=== PATIENT | male | born 1975 | race Hispanic/Latino ===

== ENCOUNTER 2017-01-07 09:25 | Day surgery (SDC) | payer OTHER ==
[2017-01-07] MEDS ORDERED: Lactated Ringer's 500 ML IV ONE (10:52)
[2017-01-07] MEDS ORDERED: Propofol 10 mg/ml Inj (20 ML) ONE (12:10)
[2017-01-07 13:01] VITALS: TEMP 98.8; O2SAT 100
[2017-01-07 13:04] VITALS: BP 124/69; PULSE 69; RESP 16
== END 2017-01-07 13:08 | disposition home or self-care (01) ==
LOC: H.ENDO 09:25
PROVIDERS: ATTEND Internal Medicine Gastroenterology
DX: K74.60 Unspecified cirrhosis of liver (principal); J45.909 Unspecified asthma, uncomplicated; K31.9 Disease of stomach and duodenum, unspecified; K31.89 Other diseases of stomach and duodenum; K76.6 Portal hypertension

== ENCOUNTER 2017-07-24 05:53 | Inpatient (IN) | payer OTHER ==
[2017-07-24] MEDS ORDERED: Iohexol 240 (50 ml) PO ONE (06:33)
[2017-07-24] MEDS ORDERED: Iohexol 240 (50 ml) ONE (06:54)
[2017-07-24 07:04] LABS: BASO # 0.1 K/uL (0.0-0.2); BASO % 0.8 % (0.0-2.0); EOS # 0.1 K/uL (0.0-0.7); EOS % 1.1 % (0.0-4.0); HEMATOCRIT 39.4 % (35.0-51.0); LYMPH # 1.2 K/uL (1.0-4.3); LYMPH % 15.9 % (20.0-40.0); MEAN CELL VOLUME 92.1 fl (80.0-94.0); MEAN CORPUSCULAR HEMOGLOBIN 30.4 pg (27.0-31.0); MEAN PLATELET VOLUME 9.1 fl (7.2-11.7); MONO # 1.4 K/uL (0.0-0.8); MONO % 18.8 % (0.0-10.0); NEUT # 4.8 K/uL (1.8-7.0); NEUT % 63.4 % (50.0-75.0); RED CELL DISTRIBUTION WIDTH 20.2 % (11.5-14.5); WHITE BLOOD COUNT 7.7 K/uL (4.8-10.8)
--- NOTE | 2017-07-24 07:08 | ED PDOC ---
HPI: Abdomen Time Seen by Provider: 07/24/17 06:21 Chief Complaint (Nursing): Abdominal Pain Chief Complaint (Provider): Abdominal pain History Per: Patient History/Exam Limitations: no limitations Onset/Duration Of Symptoms: Days (2 days) Current Symptoms Are (Timing): Still Present Additional Complaint(s): Patient is a 42 y/o male with a past medical history of anemia and cirrhosis, who presents to the ED complaining of abdominal pain x2 days. Patient reports that he has been drinking for the past month and noticed abdominal and leg swelling. He denies any nausea, vomiting, diarrhea, fever, chills, chest pain, shortness of breath, or other symptoms. PCP: Provider JUMA, Past Medical History Reviewed: Historical Data, Nursing Documentation, Vital Signs Vital Signs: Last Vital Signs Temp 98.8 F 07/26/17 00:17 Pulse 101 H 07/26/17 00:17 Resp 18 07/26/17 00:17 BP 103/61 07/26/17 00:17 Pulse Ox 96 07/26/17 00:17 - Medical History PMH: Anemia, Asthma Denies: Chronic Kidney Disease - Surgical History Surgical History: No Surg Hx - Family History Family History: States: No Known Family Hx - Home Medications Home Medications: Ambulatory Orders Medication Instructions Recorded Furosemide [Lasix] 40 mg PO DAILY 07/24/17 - Allergies Allergies/Adverse Reactions: Allergies Allergy/AdvReac Type Severity Reaction Status Date / Time No Known Allergies Allergy Verified 01/07/17 10:49 Review of Systems ROS Statement: Except As Marked, All Systems Reviewed And Found Negative Constitutional: Negative for: Fever, Chills Cardiovascular: Negative for: Chest Pain Respiratory: Negative for: Shortness of Breath Gastrointestinal: Positive for: Abdominal Pain, Other (abdominal swelling). Negative for: Nausea, Vomiting, Diarrhea Musculoskeletal: Positive for: Other (leg swelling) Physical Exam - Reviewed Nursing Documentation Reviewed: Yes Vital Signs Reviewed: Yes - Physical Exam Appears: Positive for: No Acute Distress Head Exam: Positive for: ATRAUMATIC, NORMOCEPHALIC Skin: Positive for: Normal Color, Warm, Dry Eye Exam: Positive for: Normal appearance, EOMI, PERRL Neck: Positive for: Normal, Painless ROM, Supple Cardiovascular/Chest: Positive for: Regular Rate, Rhythm. Negative for: Murmur Respiratory: Positive for: Normal Breath Sounds. Negative for: Respiratory Distress Gastrointestinal/Abdominal: Positive for: Tenderness (focal point tenderness in right mid abdomen with "divot" in abdominal wall that measures about 3cm in diameter), Distended Back: Positive for: Normal Inspection. Negative for: L CVA Tenderness, R CVA Tenderness, Vertebral Tenderness Extremity: Positive for: Pedal Edema (2+ pitting edema in legs) Neurologic/Psych: Positive for: Alert, Oriented (x3). Negative for: Motor/ Sensory Deficits - Laboratory Results Result Diagrams: 07/25/17 08:30 07/25/17 08:30 - ECG O2 Sat by Pulse Oximetry: 100 (RA) Pulse Ox Interpretation: Normal Medical Decision Making Medical Decision Making: Time: 06:33 Initial Impression: cirrhosis Initial Plan: --Type an dscreen --CT Abdomen/Pelvis PO and IV contrast --Ammonia --Bilirubin, Direct --Labs --Drug Screen, Urine --PT/PTT --Chest XR --Iohexol 50ml PO --Ketorolac 15mg IVP --Urinalysis --Reevaluation Time: 07:00 -Patient signed out by me to Jairon Pierre Scribe Attestation: Documented by Yanci Luong, acting as a scribe for Blane Garcia MD Provider Scribe Attestation: All medical record entries made by the Scribe were at my direction and personally dictated by me. I have reviewed the chart and agree that the record accurately reflects my personal performance of the history, physical exam, medical decision making, and the department course for this patient. I have also personally directed, reviewed, and agree with the discharge instructions and disposition. Disposition - Clinical Impression Clinical Impression: Cholecystitis, Hypokalemia, Increased ammonia level - Patient ED Disposition Is Patient to be Admitted: Transfer of Care - Disposition Disposition: Transfer of Care Disposition Time: 07:00 Condition: FAIR Patient Signed Over To: Jairon Pierre
[2017-07-24 07:17] LABS: ALKALINE PHOSPHATASE 530 U/L (38-126); ALT/SGPT 85 U/L (21-72); AST/SGOT 266 U/L (17-59); BILIRUBIN,TOTAL 5.2 mg/dl (0.2-1.3); BLOOD UREA NITROGEN 4 mg/dl (9-20); CALCIUM 7.4 mg/dL (8.4-10.2); CARBON DIOXIDE 25 mmol/L (22-30); CHLORIDE 103 mmol/L (98-107); GFR AFRICAN-AMERICAN > 60; GLUCOSE,RANDOM 137 mg/dL (75-110); LIPASE 235 U/L (23-300); POTASSIUM 3.4 MMOL/L (3.6-5.0); SODIUM 137 mmol/l (132-148)
[2017-07-24 07:19] LABS: ALB/GLOB RATIO 0.5 (1.0-2.1)
--- NOTE | 2017-07-24 07:22 | ED PDOC ---
- Laboratory Results Result Diagrams: 07/24/17 06:46 07/24/17 06:46 Interpretation Of Abn Labs: 5.2 bili, direct 4.1, ast 266/alt 85; 67 ammonia - ECG ECG: Positive for: Interpreted By Me, Viewed By Me ECG Rhythm: Positive for: Sinus Rhythm O2 Sat by Pulse Oximetry: 100 (RA) Pulse Ox Interpretation: Normal - CT Scan/US CT Abd/Pelvis Other Rad Studies (CT/US): Read By Radiologist, Radiology Report Reviewed Other Rad Interpretation: *See findings below - Progress ED Course And Treament: Severe cirrhosis and portal hypertension with Jack gall bladder distention and pericholecystic fluid suspicious for acute cholecystitis. 1059: Spoke with Dr. Salinas who will admit. Spoke with Dr. Bazzi who will consult. Surgery resident will see pt. GI paged. Does not meet sirs criteria so not septic. 1130: Spoke with GI fellow for Dr. Fajardo. Will consult. No additional tx at this time. - Critical Care Total Time (In Min): 30 Documented Critical Care: Time excludes all time spent performint seperately billable procedures Medical Decision Making Medical Decision Making: Time: 07:00 -Patient signed over to me by Blane Garcia, pending CT and reevaluation. Time: 10:22 CT ABD/PELVIS: IMPRESSION: Severe cirrhosis and portal hypertension with Jack gall bladder distention and pericholecystic fluid suspicious for acute cholecystitis. Scribe Attestation: Documented by Yanci Luong & Tiffanie Johnson, acting as a scribe for Jairon Pierre MD Provider Scribe Attestation: All medical record entries made by the Scribe were at my direction and personally dictated by me. I have reviewed the chart and agree that the record accurately reflects my personal performance of the history, physical exam, medical decision making, and the department course for this patient. I have also personally directed, reviewed, and agree with the discharge instructions and disposition. Disposition Counseled Patient/Family Regarding: Studies Performed, Diagnosis - Clinical Impression Clinical Impression: Cholecystitis, Hypokalemia, Increased ammonia level - POA Present On Arrival: None - Disposition Disposition: Admitted as In-Patient Disposition Time: 11:25 Condition: FAIR
[2017-07-24 07:52] LABS: PARTIAL THROMBOPLASTIN TIME 33.3 Seconds (25.6-37.1)
[2017-07-24 08:44] LABS: RBC URINE 42 /hpf (0-3); URINE BACTERIA OCC (<OCC); URINE BILIRUBIN NEGATIVE (NEGATIVE); URINE BLOOD LARGE (NEGATIVE); URINE COLOR AMBER (YELLOW); URINE GLUCOSE (UA) NEG (Normal); URINE KETONE NEGATIVE (NEGATIVE); URINE LEUKOCYTE ESTERASE NEG Leu/uL (Negative); URINE PROTEIN NEGATIVE (NEGATIVE); URINE UROBILINOGEN 0.2-1.0 mg/dL (0.2-1.0); WBC URINE < 1 /hpf (0-5)
[2017-07-24] MEDS ORDERED: Sodium Chloride 0.9% 50 ML IV ONE (09:26)
[2017-07-24] MEDS ORDERED: Iohexol 300 100 ML IJ ONE (09:26)
--- NOTE | 2017-07-24 10:23 | CT ---
PROCEDURE: CT Abdomen and Pelvis with contrast HISTORY: HCV cirrhosis, R sided abd pain COMPARISON: None. TECHNIQUE: Contrast dose: Radiation dose: Total exam DLP = mGy-cm. This CT exam was performed using one or more of the following dose reduction techniques: Automated exposure control, adjustment of the mA and/or kV according to patient size, and/or use of iterative reconstruction technique. FINDINGS: LOWER THORAX: Small left pleural effusion.. LIVER: Markedly cirrhotic liver with innumerable regenerative nodules. Small HCC is not definitely excluded.. No gross lesion or ductal dilatation. GALLBLADDER AND BILE DUCTS: Marked distention of a gallbladder pericholecystic fluid;cholecystitis is not excluded.. PANCREAS: Unremarkable. No gross lesion or ductal dilatation. SPLEEN: Unremarkable. ADRENALS: Unremarkable. No mass. KIDNEYS AND URETERS: Unremarkable. No hydronephrosis. No solid mass. VASCULATURE: Unremarkable. No aortic aneurysm. BOWEL: Unremarkable. No obstruction. No gross mural thickening. APPENDIX: Normal appendix. PERITONEUM: Extensive ascites. LYMPH NODES: Unremarkable. No enlarged lymph nodes. BLADDER: Unremarkable. REPRODUCTIVE: Unremarkable. BONES: No acute fracture. OTHER FINDINGS: Extensive varices.. IMPRESSION: Severe cirrhosis and portal hypertension with Jack gall bladder distention and pericholecystic fluid suspicious for acute cholecystitis.
[2017-07-24] MEDS ORDERED: Potassium Chloride 20 mEq ER Tab PO ONE ×2 (11:22→12:42)
[2017-07-24] MEDS ORDERED: Piperacill/Tazo 3.375gm in Dex 3.375 GM/50 ML BAG IVPB ONE (11:30)
[2017-07-24] MEDS ORDERED: Piperacillin/Tazobact 3.375 gm Inj IVPB ONE (12:42)
--- NOTE | 2017-07-24 13:23 | RAD ---
PROCEDURE: CHEST RADIOGRAPH, 1 VIEW HISTORY: abd pain COMPARISON: None available. FINDINGS: LUNGS: Clear. PLEURA: No pneumothorax or pleural fluid seen. CARDIOVASCULAR: Normal. OSSEOUS STRUCTURES: No significant abnormalities. VISUALIZED UPPER ABDOMEN: Normal. OTHER FINDINGS: None. IMPRESSION: No active disease.
--- NOTE | 2017-07-24 13:48 | CP.PCM.CON ---
History of Present Illness - History of Present Illness History of Present Illness: Surgery: Dr. Bazzi CC: Abd pain HPI: 42M w. pmh of cirrhosis 2/2 hep C and ETOH abuse presents to ED w. abd pain x 2 days. Pt states that the pain is in the RUQ. Pain is described as stabbing. Pain is intermittent, exacerbated w. activity and alleviated when at rest. Pt has never had this pain before. Pain has no relation to diet. Pt denies changes in appetite, no N/V/D, no F/C. 12 Point ROS negative unless specified PMH: Cirrhosis, hep C PSH: none Meds: MAR reviewed NKDA Social: ETOH abuse 15 shots/day, +tobacco, no drugs Fhx: non-contributory Review of Systems - Review of Systems All systems: reviewed and no additional remarkable complaints except (HPI) Past Patient History - Past Medical History & Family History Past Medical History?: Yes - Past Social History Smoking Status: Heavy Smoker > 10 Cigarettes Daily - CARDIAC Hx Cardiac Disorders: No - PULMONARY Hx Asthma: Yes - NEUROLOGICAL Hx Neurological Disorder: No - HEENT Hx HEENT Problems: No - RENAL Hx Chronic Kidney Disease: No - ENDOCRINE/METABOLIC Hx Endocrine Disorders: No - HEMATOLOGICAL/ONCOLOGICAL Hx Anemia: Yes - INTEGUMENTARY Hx Dermatological Problems: No - MUSCULOSKELETAL/RHEUMATOLOGICAL Hx Musculoskeletal Disorders: No Hx Falls: No - GASTROINTESTINAL Hx Diarrhea: Yes Hx Hemorrhoids: Yes - PSYCHIATRIC Hx Psychophysiologic Disorder: Yes Hx Substance Use: Yes - SURGICAL HISTORY Hx Surgeries: No - ANESTHESIA Hx Anesthesia: No Meds Allergies/Adverse Reactions: Allergies Allergy/AdvReac Type Severity Reaction Status Date / Time No Known Allergies Allergy Verified 01/07/17 10:49 Physical Exam - Constitutional Appears: Non-toxic, No Acute Distress - Head Exam Head Exam: ATRAUMATIC, NORMOCEPHALIC - Eye Exam Eye Exam: EOMI, Scleral icterus - ENT Exam ENT Exam: Mucous Membranes Moist, Normal External Ear Exam - Neck Exam Neck exam: Positive for: Full Rom - Respiratory Exam Respiratory Exam: NORMAL BREATHING PATTERN. absent: Accessory Muscle Use, Respiratory Distress - GI/Abdominal Exam GI & Abdominal Exam: Distended (mild), Soft, Tenderness (RUQ). absent: Firm, Guarding, Rebound, Rigid - Expanded GI/Abdominal Exam Expanded Expanded GI & Abdominal Exam: Ascites (mild). absent: Dhillon's Sign - Extremities Exam Extremities exam: Negative for: calf tenderness, pedal edema - Neurological Exam Neurological exam: Alert, Oriented x3 - Psychiatric Exam Psychiatric exam: Normal Affect, Normal Mood - Skin Skin Exam: Dry, Normal Color, Warm Results - Vital Signs Recent Vital Signs: Last Vital Signs Temp 98.0 F 07/24/17 06:08 Pulse 92 H 07/24/17 12:57 Resp 18 07/24/17 12:57 BP 124/75 07/24/17 12:57 Pulse Ox 100 07/24/17 11:45 - Labs Result Diagrams: 07/24/17 06:46 07/24/17 06:46 Labs: Laboratory Results - last 24 hr 07/24/17 07/24/17 07/24/17 06:43 06:45 06:46 WBC 7.7 RBC 4.28 L Hgb 13.0 Hct 39.4 MCV 92.1 D MCH 30.4 MCHC 33.0 RDW 20.2 H Plt Count 97 L MPV 9.1 Neut % (Auto) 63.4 Lymph % (Auto) 15.9 L [place] % (Auto) 18.8 H Eos % (Auto) 1.1 Baso % (Auto) 0.8 Neut # 4.8 Lymph # 1.2 [place] # 1.4 H Eos # 0.1 Baso # 0.1 PT INR APTT Sodium Potassium Chloride Carbon Dioxide Anion Gap BUN Creatinine Est GFR ( Amer) Est GFR (Non-Af Amer) Random Glucose Calcium Total Bilirubin Direct Bilirubin AST ALT Alkaline Phosphatase Ammonia 67 H Total Protein Albumin Globulin Albumin/Globulin Ratio Lipase Urine Color Urine Clarity Urine pH Ur Specific [place] Urine Protein Urine Glucose (UA) Urine Ketones Urine Blood Urine Nitrate Urine Bilirubin Urine Urobilinogen Ur Leukocyte Esterase Urine RBC (Auto) Urine Microscopic WBC Ur Squamous Epith Cells Urine Bacteria Urine Opiates Screen Urine Methadone Screen Ur Barbiturates Screen Ur Phencyclidine Scrn Ur Amphetamines Screen U Benzodiazepines Scrn U Oth Cocaine Metabols U Cannabinoids Screen Blood Type O NEGATIVE Antibody Screen Negative BBK History Checked Patient has bt 07/24/17 07/24/17 07/24/17 06:46 07:00 07:00 WBC RBC Hgb Hct MCV MCH MCHC RDW Plt Count MPV Neut % (Auto) Lymph % (Auto) [place] % (Auto) Eos % (Auto) Baso % (Auto) Neut # Lymph # [place] # Eos # Baso # PT 14.1 H INR 1.2 APTT 33.3 Sodium 137 Potassium 3.4 L Chloride 103 Carbon Dioxide 25 Anion Gap 12 BUN 4 L Creatinine 0.7 L Est GFR ( Amer) > 60 Est GFR (Non-Af Amer) > 60 Random Glucose 137 H Calcium 7.4 L Total Bilirubin 5.2 H Direct Bilirubin 4.1 H AST 266 H ALT 85 H D Alkaline Phosphatase 530 H Ammonia Total Protein 6.0 L Albumin 2.1 L D Globulin 3.9 Albumin/Globulin Ratio 0.5 L Lipase 235 Urine Color Urine Clarity Urine pH Ur Specific [place] Urine Protein Urine Glucose (UA) Urine Ketones Urine Blood Urine Nitrate Urine Bilirubin Urine Urobilinogen Ur Leukocyte Esterase Urine RBC (Auto) Urine Microscopic WBC Ur Squamous Epith Cells Urine Bacteria Urine Opiates Screen Negative Urine Methadone Screen Negative Ur Barbiturates Screen Negative Ur Phencyclidine Scrn Negative Ur Amphetamines Screen Negative U Benzodiazepines Scrn Negative U Oth Cocaine Metabols Negative U Cannabinoids Screen Negative Blood Type Antibody Screen BBK History Checked 07/24/17 07:00 WBC RBC Hgb Hct MCV MCH MCHC RDW Plt Count MPV Neut % (Auto) Lymph % (Auto) [place] % (Auto) Eos % (Auto) Baso % (Auto) Neut # Lymph # [place] # Eos # Baso # PT INR APTT Sodium Potassium Chloride Carbon Dioxide Anion Gap BUN Creatinine Est GFR ( Amer) Est GFR (Non-Af Amer) Random Glucose Calcium Total Bilirubin Direct Bilirubin AST ALT Alkaline Phosphatase Ammonia Total Protein Albumin Globulin Albumin/Globulin Ratio Lipase Urine Color Jessica Urine Clarity Slighty-cloudy Urine pH 6.0 Ur Specific [place] 1.010 Urine Protein Negative Urine Glucose (UA) Neg Urine Ketones Negative Urine Blood Large Urine Nitrate Negative Urine Bilirubin Negative Urine Urobilinogen 0.2-1.0 Ur Leukocyte Esterase Neg Urine RBC (Auto) 42 H Urine Microscopic WBC < 1 Ur Squamous Epith Cells < 1 Urine Bacteria Occ H Urine Opiates Screen Urine Methadone Screen Ur Barbiturates Screen Ur Phencyclidine Scrn Ur Amphetamines Screen U Benzodiazepines Scrn U Oth Cocaine Metabols U Cannabinoids Screen Blood Type Antibody Screen BBK History Checked - Imaging and Cardiology CT scan - abdomen Status: Image reviewed by me, Report reviewed by me Assessment & Plan - Assessment and Plan (Free Text) Assessment: 42M w. cirrhosis, presenting w. RUQ pain, r/o cholecystitis -U/S ordered, f/u results -NPO -IVF -pain meds -abx -zofran -Child-Yeh delores-operative mortality: 82% -Pt is a poor surgical candidate -Recommend conservative management -If symptoms worsen, recommend IR consult for cholecystostomy tube -d/w Dr. Jluis Boykin PGY3
[2017-07-24] MEDS ORDERED: Sodium Chloride 0.9% 1,000 ML IV SCH (14:00)
--- NOTE | 2017-07-24 14:19 | US ---
HISTORY: eval for cholecystitis COMPARISON: None. TECHNIQUE: Sonographic evaluation of the abdomen. FINDINGS: LIVER: Measures 17.7 cm. Increased echogenicity of the liver parenchyma. No mass. No intrahepatic bile duct dilatation. GALLBLADDER: Distended measuring 5 millimeters in wall thickness. COMMON BILE DUCT: Bile duct is not identified. PANCREAS: Not visualized. RIGHT KIDNEY: Measures 11.6cm. Normal echogenicity. No calculus, mass, or hydronephrosis. LEFT KIDNEY: Measures cm. Normal echogenicity. No calculus, mass, or hydronephrosis. SPLEEN: Normal in size and contour. No mass. AORTA: Not visualized. IVC: Not visualized. OTHER FINDINGS: None. IMPRESSION: Limited examination. Heterogeneous liver possibly representing underlying cirrhosis with small amount of perihepatic fluid. Distended gallbladder measuring 5 millimeters.
[2017-07-24] MEDS ORDERED: Pneumococcal 23-Valent Vaccine IM ONE (17:30)
[2017-07-24] MEDS ORDERED: Influenza Vaccine 18yr & older 0.5 ML/45 MCG SYR IM ONE (17:33)
[2017-07-24] MEDS: Piperacill/Tazo 3.375gm in Dex 3.375 GM/50 ML BAG IVPB SCH ×2 (17:40→21:38)
[2017-07-24] MEDS: HYDROmorphone 0.5 mg/0.5 ml ISec IVP PRN ×2 (17:43→22:32)
[2017-07-24] MEDS: Dextrose 5%/Lactated Ringer's 1,000 ML IV SCH (21:29)
--- NOTE | 2017-07-25 00:10 | CP.PCM.PN ---
Subjective - Date & Time of Evaluation Date of Evaluation: 07/25/17 Time of Evaluation: 00:12 - Subjective Subjective: I D NOTE CHART REVIEWED ,INITIAL ORDERS WRITTEN WILL SEE IN LATER IN DAY Objective - Vital Signs/Intake and Output Vital Signs (last 24 hours): Temp Pulse Resp BP Pulse Ox 98.9 F 112 H 20 123/71 96 07/24/17 19:31 07/24/17 19:31 07/24/17 19:31 07/24/17 19:31 07/24/17 19:31 Intake and Output: 07/24/17 07/25/17 18:59 06:59 Intake Total 1200 Output Total 850 Balance 350 - Medications Medications: Current Medications Hydromorphone HCl (Dilaudid) 0.5 mg IVP Q4 PRN PRN Reason: Pain, moderate (4-7) Last Admin: 07/24/17 22:32 Dose: 0.5 mg Piperacillin Sod/Tazobactam Sod (Zosyn 3.375 Gm Iv Premix) 3.375 gm in 50 mls @ 50 mls/hr IVPB Q6 JADEN PRN Reason: Protocol Last Admin: 07/24/17 21:38 Dose: 50 mls/hr Dextrose/Lactated Ringer's (Dextrose 5%/Lactated Ringer's) 1,000 mls @ 80 mls/ hr IV .[id number] JADEN Stop: 07/25/17 18:20 Last Admin: 07/24/17 21:29 Dose: 80 mls/hr Amikacin Sulfate 250 mg/ (Sodium Chloride) 251 mls @ 250 mls/hr IVPB ONCE ONE PRN Reason: Protocol Stop: 07/25/17 07:00 Influenza Virus Vaccine (Afluria (Pf)(18yr & Older)) 0.5 ml IM .ONCE ONE Stop: 07/25/17 06:01 Lorazepam (Ativan) 1 mg PO Q12 JADEN Last Admin: 07/24/17 21:29 Dose: 1 mg Ondansetron HCl (Zofran Inj) 4 mg IVP Q4 PRN PRN Reason: Nausea/Vomiting Pneumococcal Polyvalent Vaccine (Pneumovax 23 Vaccine) 0.5 ml IM .ONCE ONE Stop: 07/25/17 06:01 - Labs Labs: 07/24/17 06:46 07/24/17 06:46 PT 14.1 Seconds (9.8-13.1) H 07/24/17 07:00 INR 1.2 (0.9-1.2) 07/24/17 07:00 APTT 33.3 Seconds (25.6-37.1) 07/24/17 07:00
[2017-07-25] MEDS: Piperacill/Tazo 3.375gm in Dex 3.375 GM/50 ML BAG IVPB SCH (04:46)
[2017-07-25] MEDS ORDERED: Influenza Vaccine 18yr & older 0.5 ML/45 MCG SYR IM ONE (06:00)
[2017-07-25] MEDS ORDERED: Pneumococcal 23-Valent Vaccine IM ONE (06:00)
--- NOTE | 2017-07-25 08:29 | CP.PCM.PN ---
Subjective - Date & Time of Evaluation Date of Evaluation: 07/25/17 Time of Evaluation: 08:27 - Subjective Subjective: Surgery: Dr. Bazzi Pt seen and examined. States that he feels better today. Pain persists, but is improved. Tolerating CLD. No N/V. No F/C. Objective - Vital Signs/Intake and Output Vital Signs (last 24 hours): Temp Pulse Resp BP Pulse Ox 99.2 F 114 H 16 112/61 93 L 07/25/17 05:09 07/25/17 05:09 07/25/17 05:09 07/25/17 05:09 07/25/17 05:09 Intake and Output: 07/25/17 07/25/17 06:59 18:59 Intake Total 900 Output Total 250 Balance 650 - Medications Medications: Current Medications Hydromorphone HCl (Dilaudid) 0.5 mg IVP Q4 PRN PRN Reason: Pain, moderate (4-7) Last Admin: 07/24/17 22:32 Dose: 0.5 mg Piperacillin Sod/Tazobactam Sod (Zosyn 3.375 Gm Iv Premix) 3.375 gm in 50 mls @ 50 mls/hr IVPB Q6 JADEN PRN Reason: Protocol Last Admin: 07/25/17 04:46 Dose: 50 mls/hr Dextrose/Lactated Ringer's (Dextrose 5%/Lactated Ringer's) 1,000 mls @ 80 mls/ hr IV .[id number] JADEN Stop: 07/25/17 18:20 Last Admin: 07/24/17 21:29 Dose: 80 mls/hr Lorazepam (Ativan) 1 mg PO Q12 JADEN Last Admin: 07/24/17 21:29 Dose: 1 mg Ondansetron HCl (Zofran Inj) 4 mg IVP Q4 PRN PRN Reason: Nausea/Vomiting - Labs Labs: 07/24/17 06:46 07/24/17 06:46 PT 14.1 Seconds (9.8-13.1) H 07/24/17 07:00 INR 1.2 (0.9-1.2) 07/24/17 07:00 APTT 33.3 Seconds (25.6-37.1) 07/24/17 07:00 - Constitutional Appears: Non-toxic, No Acute Distress - Head Exam Head Exam: ATRAUMATIC, NORMOCEPHALIC - Eye Exam Eye Exam: EOMI, Scleral icterus - ENT Exam ENT Exam: Mucous Membranes Moist - Neck Exam Neck Exam: Full ROM - Respiratory Exam Respiratory Exam: NORMAL BREATHING PATTERN. absent: Accessory Muscle Use, Respiratory Distress - GI/Abdominal Exam GI & Abdominal Exam: Distended, Soft, Tenderness (RUQ). absent: Firm, Guarding , Rigid, Rebound - Extremities Exam Extremities Exam: absent: Calf Tenderness - Neurological Exam Neurological Exam: Alert, Awake, Oriented x3 Assessment and Plan - Assessment and Plan (Free Text) Assessment: 42M w. abd pain, r/o cholecystitis -U/S reviewed -will advance diet to HHD -c/w abx -c/w pain management -Child-Yeh delores-operative mortality: 82% -Pt is a poor surgical candidate -Recommend conservative management -If symptoms worsen, recommend IR consult for cholecystostomy tube -d/w Dr. Bazzi Zemaitis PGY3
[2017-07-25] MEDS: HYDROmorphone 0.5 mg/0.5 ml ISec IVP PRN ×3 (08:54→21:26)
[2017-07-25] MEDS: Dextrose 5%/Lactated Ringer's 1,000 ML IV SCH (08:55)
[2017-07-25 09:18] LABS: ALKALINE PHOSPHATASE 423 U/L (38-126); ALT/SGPT 75 U/L (21-72); AST/SGOT 256 U/L (17-59); BILIRUBIN,TOTAL 6.8 mg/dl (0.2-1.3); BLOOD UREA NITROGEN 8 mg/dl (9-20); CALCIUM 7.5 mg/dL (8.4-10.2); CARBON DIOXIDE 27 mmol/L (22-30); CHLORIDE 101 mmol/L (98-107); GFR AFRICAN-AMERICAN > 60; GLUCOSE,RANDOM 101 mg/dL (75-110); POTASSIUM 3.6 MMOL/L (3.6-5.0); SODIUM 134 mmol/l (132-148); TOTAL PROTEIN 5.6 G/DL (6.3-8.2)
[2017-07-25 09:19] LABS: HEMATOCRIT 37.4 % (35.0-51.0); MEAN CELL VOLUME 92.6 fl (80.0-94.0); MEAN CORPUSCULAR HEMOGLOBIN 30.8 pg (27.0-31.0); MEAN CORPUSCULAR HGB CONC 33.3 g/dL (33.0-37.0); PLATELET COUNT 97 K/uL (130-400); WHITE BLOOD COUNT 7.7 K/uL (4.8-10.8)
[2017-07-25 09:24] LABS: ALB/GLOB RATIO 0.6 (1.0-2.1)
--- NOTE | 2017-07-25 10:54 | CP.PCM.CON ---
<Yoly Maurice - Last Filed: 07/25/17 11:07> History of Present Illness - History of Present Illness History of Present Illness: GI Fellow PGY4 Consult Note This is a 42yM with pmhx of alcoholic cirrhosis and Hep C presenting with RUQ abdominal pain for 2day. Pain is described as sharp stabbing pain that is non radiating and not associated with any food intake, no prior episode of this type of pain. Pt denies fevers,chills, nausea or vomiting. Pt was found to have acute cholecystitis on CTA/P and has elevated LFTs on admission with TBili 5.2. Pt says he was diagnosed with Cirrhosis in October and recently Hep C for which he follows up with Dr. Fajardo and is awaiting on starting HepC treatment. Pt has not been seen at a transplant center. Pt did have an EGD 01/2017 which was negative for varices and showed moderated portal gastropathy. ROS: 12 Point ROS was negative unless specified PMHx: ETOH Cirrhosis, Hep C PSHx: None SHx: ETOH abuse 15 shots/days-reports he did not drink from October till last month when he restarted drinking and last drink was 2 days ago, +tobacco, no drugs FHx: Denies hx of liver disease Past Patient History - Past Medical History & Family History Past Medical History?: Yes - Past Social History Smoking Status: Heavy Smoker > 10 Cigarettes Daily - CARDIAC Hx Cardiac Disorders: No - PULMONARY Hx Asthma: Yes - NEUROLOGICAL Hx Neurological Disorder: No - HEENT Hx HEENT Problems: No - RENAL Hx Chronic Kidney Disease: No - ENDOCRINE/METABOLIC Hx Endocrine Disorders: No - HEMATOLOGICAL/ONCOLOGICAL Hx Anemia: Yes - INTEGUMENTARY Hx Dermatological Problems: No - MUSCULOSKELETAL/RHEUMATOLOGICAL Hx Falls: Yes - GASTROINTESTINAL Hx Diarrhea: Yes Hx Hemorrhoids: Yes - PSYCHIATRIC Hx Substance Use: No - SURGICAL HISTORY Hx Surgeries: No - ANESTHESIA Hx Anesthesia: No Meds Allergies/Adverse Reactions: Allergies Allergy/AdvReac Type Severity Reaction Status Date / Time No Known Allergies Allergy Verified 01/07/17 10:49 - Medications Medications: Current Medications Hydromorphone HCl (Dilaudid) 0.5 mg IVP Q4 PRN PRN Reason: Pain, moderate (4-7) Last Admin: 07/25/17 08:54 Dose: 0.5 mg Piperacillin Sod/Tazobactam Sod (Zosyn 3.375 Gm Iv Premix) 3.375 gm in 50 mls @ 50 mls/hr IVPB Q6 JADEN PRN Reason: Protocol Last Admin: 07/25/17 04:46 Dose: 50 mls/hr Dextrose/Lactated Ringer's (Dextrose 5%/Lactated Ringer's) 1,000 mls @ 80 mls/ hr IV .[id number] [facility] Stop: 07/25/17 18:20 Last Admin: 07/25/17 08:55 Dose: 80 mls/hr Lorazepam (Ativan) 1 mg PO Q12 [facility] Last Admin: 07/25/17 08:54 Dose: 1 mg Ondansetron HCl (Zofran Inj) 4 mg IVP Q4 PRN PRN Reason: Nausea/Vomiting Physical Exam - Constitutional Appears: Non-toxic, No Acute Distress, Chronically Ill - Head Exam Head Exam: ATRAUMATIC, NORMAL INSPECTION, NORMOCEPHALIC - Eye Exam Eye Exam: EOMI, Normal appearance, Scleral icterus - ENT Exam ENT Exam: Mucous Membranes Moist, Normal Exam - Neck Exam Neck exam: Positive for: Normal Inspection - Respiratory Exam Respiratory Exam: Decreased Breath Sounds, NORMAL BREATHING PATTERN - Cardiovascular Exam Cardiovascular Exam: RRR, +S1, +S2 - GI/Abdominal Exam GI & Abdominal Exam: Distended, Normal Bowel Sounds, Organomegaly, Tenderness - Rectal Exam Rectal Exam: Deferred - Extremities Exam Extremities exam: Positive for: full ROM, pedal edema - Back Exam Back exam: CVA tenderness (L) - Neurological Exam Neurological exam: Alert, Oriented x3 - Psychiatric Exam Psychiatric exam: Normal Affect, Normal Mood - Skin Skin Exam: Dry, Intact, Warm Additional comments: Jaundice Results - Vital Signs Recent Vital Signs: Last Vital Signs Temp 99.2 F 07/25/17 08:00 Pulse 112 H 07/25/17 08:00 Resp 20 07/25/17 08:00 BP 134/72 07/25/17 08:00 Pulse Ox 95 07/25/17 08:00 - Labs Result Diagrams: 07/25/17 08:30 07/25/17 08:30 Labs: Laboratory Results - last 24 hr 07/25/17 07/25/17 08:30 08:30 WBC 7.7 RBC 4.04 L Hgb 12.5 Hct 37.4 MCV 92.6 MCH 30.8 MCHC 33.3 RDW 20.0 H Plt Count 97 L Sodium 134 Potassium 3.6 Chloride 101 Carbon Dioxide 27 Anion Gap 9 L BUN 8 L Creatinine 0.8 Est GFR ( Amer) > 60 Est GFR (Non-Af Amer) > 60 Random Glucose 101 Calcium 7.5 L Total Bilirubin 6.8 H AST 256 H ALT 75 H Alkaline Phosphatase 423 H D Total Protein 5.6 L Albumin 2.0 L Globulin 3.6 Albumin/Globulin Ratio 0.6 L Assessment & Plan - Assessment and Plan (Free Text) Assessment: This is a 42yM with h/o of Hep C/alcoholic Cirrhosis presenting with acute onset of RUQ pain for 2days. 1. Acute cholecystitis 2. Cirrhosis MELD 15, Child Yeh Class C 3. Hep C 4. Alcohol abuse, DF 9.8 5. Transaminitis Plan: -Continue supportive care with pain control and anti-emetics -Continue IV abx therapy per ID -Agree with surgical recommendation that cholecystectomy in setting of cirrhosis and child yeh class C has increased risk of mortality 82% -Discussed with patient about possible IR cholecystostomy tube if patients symptoms do not improve -May also consider EUS-guided gallbladder drainage with stent placement -Pt should seek to be placed on transplant list for definite treatment of gallbladder pathology -Pt needs to stop drinking alcohol and counseling was provided -Pt will need to be treated for Hep C, follow up with Dr. Fajardo as outpt -Recommend starting home diuretics -Will continue to follow pt closely <Robert Munroe - Last Filed: 07/25/17 15:49> Meds - Medications Medications: Current Medications Hydromorphone HCl (Dilaudid) 0.5 mg IVP Q4 PRN PRN Reason: Pain, moderate (4-7) Last Admin: 07/25/17 08:54 Dose: 0.5 mg Dextrose/Lactated Ringer's (Dextrose 5%/Lactated Ringer's) 1,000 mls @ 80 mls/ hr IV .[id number] [facility] Stop: 07/25/17 18:20 Last Admin: 07/25/17 08:55 Dose: 80 mls/hr Piperacillin Sod/Tazobactam (Sod 3.375 gm/ Sodium Chloride) 100 mls @ 100 mls/ hr IVPB Q6 JADEN PRN Reason: Protocol Lorazepam (Ativan) 1 mg PO Q12 [facility] Last Admin: 07/25/17 08:54 Dose: 1 mg Ondansetron HCl (Zofran Inj) 4 mg IVP Q4 PRN PRN Reason: Nausea/Vomiting Results - Vital Signs Recent Vital Signs: Last Vital Signs Temp 98.9 F 07/25/17 12:27 Pulse 101 H 07/25/17 12:27 Resp 18 07/25/17 12:27 BP 130/76 07/25/17 12:27 Pulse Ox 96 07/25/17 12:27 - Labs Result Diagrams: 07/25/17 08:30 07/25/17 08:30 Labs: Laboratory Results - last 24 hr 07/25/17 07/25/17 08:30 08:30 WBC 7.7 RBC 4.04 L Hgb 12.5 Hct 37.4 MCV 92.6 MCH 30.8 MCHC 33.3 RDW 20.0 H Plt Count 97 L Neutrophils % (Manual) 84 H Lymphocytes % (Manual) 4 L Monocytes % (Manual) 9 Eosinophils % (Manual) 3 Platelet Estimate Slightly decreased L Giant Platelets Present Poikilocytosis (manual Moderate Anisocytosis (manual) Marked Tear Drop Cells Slight Ovalocytes Slight Sodium 134 Potassium 3.6 Chloride 101 Carbon Dioxide 27 Anion Gap 9 L BUN 8 L Creatinine 0.8 Est GFR ( Amer) > 60 Est GFR (Non-Af Amer) > 60 Random Glucose 101 Calcium 7.5 L Total Bilirubin 6.8 H AST 256 H ALT 75 H Alkaline Phosphatase 423 H D Total Protein 5.6 L Albumin 2.0 L Globulin 3.6 Albumin/Globulin Ratio 0.6 L Attending/Attestation - Attestation I have personally seen and examined this patient.: Yes I have fully participated in the care of the patient.: Yes I have reviewed all pertinent clinical information: Yes Notes (Text): 07/25/17 15:47 42 year old male with h/o Alcohol abuse, Hepatitis C, Cirrhosis a/w acute cholecystitis. 1. Acute cholecystitis 2. Cirrhosis 3. Hepatitis C 4. Alcohol abuse Plan: -surgical risk is prohhibitive for cholecystectomy -will likely need drainage -discussed different drainage options including percutaneous and endoscopic, which he is thinking about -would probably proceed with percutaneous drainage as it is more readily available -etoh cessation is advised -he should be ultimately referred to transplant center
[2017-07-25 11:08] LABS: EOSINOPHIL 3 % (0-7); NEUTROPHIL 84 % (42-75); TOTAL CELLS COUNTED 100
[2017-07-25 11:09] LABS: GIANT PLATELETS PRESENT
--- NOTE | 2017-07-25 13:11 | CP.PCM.HP ---
History of Present Illness - History of Present Illness History of Present Illness: This is a 42 y/o male admitted for progressive abdominal pain and tremors. He has a hx of alcoholic liver irrhosis and despite the diagnoses, he continued to drink alcoholic beverage. CT Scan showed possible cholecystitis. Past Patient History - Past Medical History & Family History Past Medical History?: Yes - Past Social History Smoking Status: Heavy Smoker > 10 Cigarettes Daily - CARDIAC Hx Cardiac Disorders: No - PULMONARY Hx Asthma: Yes - NEUROLOGICAL Hx Neurological Disorder: No - HEENT Hx HEENT Problems: No - RENAL Hx Chronic Kidney Disease: No - ENDOCRINE/METABOLIC Hx Endocrine Disorders: No - HEMATOLOGICAL/ONCOLOGICAL Hx Anemia: Yes - INTEGUMENTARY Hx Dermatological Problems: No - MUSCULOSKELETAL/RHEUMATOLOGICAL Hx Falls: Yes - GASTROINTESTINAL Hx Diarrhea: Yes Hx Hemorrhoids: Yes - PSYCHIATRIC Hx Substance Use: No - SURGICAL HISTORY Hx Surgeries: No - ANESTHESIA Hx Anesthesia: No Meds Allergies/Adverse Reactions: Allergies Allergy/AdvReac Type Severity Reaction Status Date / Time No Known Allergies Allergy Verified 01/07/17 10:49 Results - Vital Signs Recent Vital Signs: Last Vital Signs Temp 98.9 F 07/25/17 12:27 Pulse 101 H 07/25/17 12:27 Resp 18 07/25/17 12:27 BP 130/76 07/25/17 12:27 Pulse Ox 96 07/25/17 12:27 - Labs Result Diagrams: 07/25/17 08:30 07/25/17 08:30 Labs: Laboratory Results - last 24 hr 07/25/17 07/25/17 08:30 08:30 WBC 7.7 RBC 4.04 L Hgb 12.5 Hct 37.4 MCV 92.6 MCH 30.8 MCHC 33.3 RDW 20.0 H Plt Count 97 L Neutrophils % (Manual) 84 H Lymphocytes % (Manual) 4 L Monocytes % (Manual) 9 Eosinophils % (Manual) 3 Platelet Estimate Slightly decreased L Giant Platelets Present Poikilocytosis (manual Moderate Anisocytosis (manual) Marked Tear Drop Cells Slight Ovalocytes Slight Sodium 134 Potassium 3.6 Chloride 101 Carbon Dioxide 27 Anion Gap 9 L BUN 8 L Creatinine 0.8 Est GFR ( Amer) > 60 Est GFR (Non-Af Amer) > 60 Random Glucose 101 Calcium 7.5 L Total Bilirubin 6.8 H AST 256 H ALT 75 H Alkaline Phosphatase 423 H D Total Protein 5.6 L Albumin 2.0 L Globulin 3.6 Albumin/Globulin Ratio 0.6 L
[2017-07-25] MEDS: Piperacillin/Tazobact 3.375 GM in Sodium Chloride 0.9% 100 ML IVPB SCH ×2 (16:45→21:27)
--- NOTE | 2017-07-25 20:28 | CON ---
INFECTIOUS DISEASE CONSULTATION DATE: HISTORY OF PRESENT ILLNESS: Patient is a 42-year-old male, who has a history of alcoholic cirrhosis and hepatitis C, who present to the ER with right upper quadrant pain for 2 days. He states that the pain is not associated with any food intake. Denies any previous episode of pain of this type. He denies fever, chills, nausea, vomiting. He has a significant history of cirrhosis and has not stopped drinking. He apparently is being followed by Dr. Fajardo for hep C and is awaiting to be treated for hepatitis C. Of significance, he had an EGD on 01/21/2017, which was negative for varices. PAST MEDICAL HISTORY: Includes ethanolism, cirrhosis, and hepatitis C. SOCIAL HISTORY: No history at present of tobacco or drugs. He is also a smoker. He smokes more than 10 cigarettes per day. PHYSICAL EXAMINATION GENERAL: Appears chronically ill. HEENT: Within normal limits. He has scleral icterus. NECK: Supple. LUNGS: Decreased breath sounds, some rhonchi at the right base. HEART: Regular sinus rhythm. ABDOMEN: Distended with positive bowel sounds and he has hepatomegaly and right upper quadrant tenderness. EXTREMITIES: He has pedal edema. ASSESSMENT AND PLAN: CT scan shows him to have probable acute cholecystitis. At the present time, he is on Zosyn, had given a dose of Amikacin, wished to get a random Amikacin level because as considering the acuteness of his liver disease, would be concerned about going into hepatorenal syndrome with use of nephrotoxic drug. Paulo Morel MD
[2017-07-26] MEDS: Piperacillin/Tazobact 3.375 GM in Sodium Chloride 0.9% 100 ML IVPB SCH ×4 (04:00→21:08)
[2017-07-26 05:26] LABS: ALB/GLOB RATIO 0.5 (1.0-2.1); ALKALINE PHOSPHATASE 394 U/L (38-126); ALT/SGPT 66 U/L (21-72); AST/SGOT 200 U/L (17-59); BILIRUBIN,TOTAL 5.9 mg/dl (0.2-1.3); BLOOD UREA NITROGEN 8 mg/dl (9-20); CALCIUM 7.5 mg/dL (8.4-10.2); CARBON DIOXIDE 27 mmol/L (22-30); CHLORIDE 103 mmol/L (98-107); GFR AFRICAN-AMERICAN > 60; GLUCOSE,RANDOM 91 mg/dL (75-110); POTASSIUM 3.6 MMOL/L (3.6-5.0); SODIUM 135 mmol/l (132-148); TOTAL PROTEIN 5.2 G/DL (6.3-8.2)
[2017-07-26 05:35] LABS: HEMATOCRIT 35.7 % (35.0-51.0); MEAN CELL VOLUME 92.3 fl (80.0-94.0); MEAN CORPUSCULAR HGB CONC 33.6 g/dL (33.0-37.0); RED CELL DISTRIBUTION WIDTH 19.9 % (11.5-14.5)
--- NOTE | 2017-07-26 07:27 | CP.PCM.PN ---
Subjective - Date & Time of Evaluation Date of Evaluation: 07/26/17 Time of Evaluation: 07:20 - Subjective Subjective: Patient seen and examined this morning. No acute events over night. Reports improvement of RUQ pain. Denies fever/chills, nausea/vomiting. Objective - Vital Signs/Intake and Output Vital Signs (last 24 hours): Temp Pulse Resp BP Pulse Ox 98.6 F 102 H 18 121/71 96 07/26/17 05:00 07/26/17 05:00 07/26/17 05:00 07/26/17 05:00 07/26/17 05:00 - Medications Medications: Current Medications Hydromorphone HCl (Dilaudid) 0.5 mg IVP Q4 PRN PRN Reason: Pain, moderate (4-7) Last Admin: 07/25/17 21:26 Dose: 0.5 mg Piperacillin Sod/Tazobactam (Sod 3.375 gm/ Sodium Chloride) 100 mls @ 100 mls/ hr IVPB Q6 [facility] PRN Reason: Protocol Last Admin: 07/25/17 21:27 Dose: 100 mls/hr Lorazepam (Ativan) 1 mg PO Q12 [facility] Last Admin: 07/25/17 21:26 Dose: 1 mg Ondansetron HCl (Zofran Inj) 4 mg IVP Q4 PRN PRN Reason: Nausea/Vomiting - Labs Labs: 07/26/17 04:45 07/26/17 04:45 PT 16.9 Seconds (9.8-13.1) H 07/26/17 04:45 INR 1.5 (0.9-1.2) H 07/26/17 04:45 APTT 33.3 Seconds (25.6-37.1) 07/24/17 07:00 - Constitutional Appears: No Acute Distress - Head Exam Head Exam: NORMOCEPHALIC - Eye Exam Eye Exam: Normal appearance - ENT Exam ENT Exam: Mucous Membranes Moist - Respiratory Exam Respiratory Exam: NORMAL BREATHING PATTERN - Cardiovascular Exam Cardiovascular Exam: +S1, +S2 - GI/Abdominal Exam GI & Abdominal Exam: Soft. absent: Tenderness - Neurological Exam Neurological Exam: Alert, Awake, Oriented x3 - Psychiatric Exam Psychiatric exam: Normal Mood - Skin Skin Exam: Dry, Intact, Warm Assessment and Plan - Assessment and Plan (Free Text) Assessment: 42M w. abd pain, r/o cholecystitis -LFTs improving -F/u repeat U/S -c/w abx -c/w analgesics -Poor surgical candidate -C/w conservative management -GI recs appreciated -d/w Dr. Jluis Aguirre PGY2
--- NOTE | 2017-07-26 09:09 | CP.PCM.PN ---
<Yoly Maurice - Last Filed: 07/26/17 15:57> Subjective - Date & Time of Evaluation Date of Evaluation: 07/26/17 Time of Evaluation: 08:30 - Subjective Subjective: GI Fellow PGY4 Progress Note Pt seen and evaluated at bedside, pt reports abdominal pain is a little better this morning. Pt is currently NPO for repeat abdominal US this morning. Pt denies nausea, vomiting, fevers or chills. ROS: 12 Point ROS was negative unless specified Objective - Vital Signs/Intake and Output Vital Signs (last 24 hours): Temp Pulse Resp BP Pulse Ox 99.0 F 102 H 16 128/75 95 07/26/17 08:37 07/26/17 08:37 07/26/17 08:37 07/26/17 08:37 07/26/17 08:37 Intake and Output: 07/26/17 07/26/17 06:59 18:59 Intake Total 400 Balance 400 - Medications Medications: Current Medications Hydromorphone HCl (Dilaudid) 0.5 mg IVP Q4 PRN PRN Reason: Pain, moderate (4-7) Last Admin: 07/25/17 21:26 Dose: 0.5 mg Piperacillin Sod/Tazobactam (Sod 3.375 gm/ Sodium Chloride) 100 mls @ 100 mls/ hr IVPB Q6 [facility]ADEN PRN Reason: Protocol Last Admin: 07/26/17 04:00 Dose: 100 mls/hr Lorazepam (Ativan) 1 mg PO Q12 [facility] Last Admin: 07/25/17 21:26 Dose: 1 mg Ondansetron HCl (Zofran Inj) 4 mg IVP Q4 PRN PRN Reason: Nausea/Vomiting - Labs Labs: 07/26/17 04:45 07/26/17 04:45 PT 16.9 Seconds (9.8-13.1) H 07/26/17 04:45 INR 1.5 (0.9-1.2) H 07/26/17 04:45 APTT 33.3 Seconds (25.6-37.1) 07/24/17 07:00 - Constitutional Appears: Non-toxic, No Acute Distress - Head Exam Head Exam: ATRAUMATIC, NORMAL INSPECTION, NORMOCEPHALIC - Eye Exam Eye Exam: EOMI, Scleral icterus Pupil Exam: PERRL - ENT Exam ENT Exam: Mucous Membranes Moist, Normal Exam - Neck Exam Neck Exam: Full ROM - Respiratory Exam Respiratory Exam: Clear to Ausculation Bilateral, NORMAL BREATHING PATTERN - Cardiovascular Exam Cardiovascular Exam: RRR, +S1, +S2 - GI/Abdominal Exam GI & Abdominal Exam: Distended, Tenderness, Normal Bowel Sounds. absent: Organomegaly - Rectal Exam Rectal Exam: Deferred - Extremities Exam Extremities Exam: Full ROM, Pedal Edema - Back Exam Back Exam: NORMAL INSPECTION - Neurological Exam Neurological Exam: Alert, Awake, Oriented x3 - Psychiatric Exam Psychiatric exam: Normal Affect, Normal Mood - Skin Skin Exam: Dry, Intact, Warm Additional comments: jaundice Assessment and Plan - Assessment and Plan (Free Text) Assessment: This is a 42yM with h/o of Hep C/alcoholic Cirrhosis presenting with acute onset of RUQ pain for 2days. 1. Acute cholecystitis 2. 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 Hep C 4. Alcohol abuse, DF 9.8 5. Transaminitis Plan: -Continue supportive care with pain control and anti-emetics -Continue IV abx therapy per ID -Agree with surgical recommendation that cholecystectomy in setting of cirrhosis and child yeh class C has increased risk of mortality 82% -Recommend possible IR cholecystostomy tube if patients symptoms do not improve -Surgery ordering repeat abdominal US, fu with results -Pt should seek to be placed on transplant list for definite treatment of gallbladder pathology -Pt needs to stop drinking alcohol and counseling was provided -Pt will need to be treated for Hep C, follow up with Dr. Fajardo as outpt -Will start lasix and spironolactone for diuresis -Will continue to follow pt closely <[facility] - Last Filed: 07/26/17 21:03> Objective - Vital Signs/Intake and Output Vital Signs (last 24 hours): Temp Pulse Resp BP Pulse Ox 98.6 F 97 H 20 116/68 96 07/26/17 19:44 07/26/17 19:44 07/26/17 19:44 07/26/17 19:44 07/26/17 19:44 Intake and Output: 07/26/17 07/27/17 18:59 06:59 Intake Total 1200 Balance 1200 - Medications Medications: Current Medications Benzonatate (Tessalon Perles) 100 mg PO TID PRN PRN Reason: Cough Last Admin: 07/26/17 18:08 Dose: 100 mg Furosemide (Lasix) 40 mg PO DAILY [facility] Last Admin: 07/26/17 10:58 Dose: Not Given Hydromorphone HCl (Dilaudid) 0.5 mg IVP Q4 PRN PRN Reason: Pain, moderate (4-7) Last Admin: 07/26/17 18:08 Dose: 0.5 mg Piperacillin Sod/Tazobactam (Sod 3.375 gm/ Sodium Chloride) 100 mls @ 100 mls/ hr IVPB Q6 [facility]ADEN PRN Reason: Protocol Last Admin: 07/26/17 18:06 Dose: 100 mls/hr Lorazepam (Ativan) 1 mg PO Q12 [facility] Last Admin: 07/26/17 10:58 Dose: Not Given Ondansetron HCl (Zofran Inj) 4 mg IVP Q4 PRN PRN Reason: Nausea/Vomiting Spironolactone (Aldactone) 100 mg PO DAILY [facility] Last Admin: 07/26/17 10:58 Dose: Not Given - Labs Labs: 07/26/17 04:45 07/26/17 04:45 PT 16.9 Seconds (9.8-13.1) H 07/26/17 04:45 INR 1.5 (0.9-1.2) H 07/26/17 04:45 APTT 33.3 Seconds (25.6-37.1) 07/24/17 07:00 Attending/Attestation - Attestation I have personally seen and examined this patient.: Yes I have fully participated in the care of the patient.: Yes I have reviewed all pertinent clinical information, including history, physical exam and plan: Yes Notes (Text): 07/26/17 20:57 Patient seen and examined with GI fellow at bedside. This is a 42 year old male with h/o Alcohol abuse, HCV Cirrhosis treatment naive admitted with acute cholecystitis. On antibiotics with CPT score C, high risk for abdominal surgery. Will treat conservatively and follow clinical progress. Councelled regarding alcohol cessation- relapsed alcoholic. Will get IR consult for potential drainage
[2017-07-26] MEDS: HYDROmorphone 0.5 mg/0.5 ml ISec IVP PRN ×3 (10:57→23:09)
--- NOTE | 2017-07-26 12:21 | US ---
HISTORY: reassess gallbladder COMPARISON: 07/24/2017 TECHNIQUE: Sonographic evaluation of the right upper quadrant of the abdomen. FINDINGS: LIVER: Measures 19.4 cm in length. Hepatopedal blood flow. Fatty infiltration manifest ultrasonographically as increased echogenicity of the liver parenchyma. No mass. No intrahepatic bile duct dilatation. GALLBLADDER: Markedly distended gallbladder. No gallstones identified. Similar findings identified on the prior study COMMON BILE DUCT: No stones. No dilatation.Obscured by overlying bowel gas. Non diagnostic assessment of common bile duct PANCREAS: Obscured by overlying bowel gas. Non diagnostic assessment of the pancreas RIGHT KIDNEY: Measures 6.3 x 11.4 cm in length. Normal echogenicity. No calculus, mass, or hydronephrosis. AORTA: No aneurysmal dilatation. IVC: Unremarkable. OTHER FINDINGS: None . IMPRESSION: Distended gallbladder, of no gallstones identified. The gallbladder wall remains edematous measuring 6.5 mm. Limitations of the current examination: Nondiagnostic assessment of the common bile duct and pancreas.
[2017-07-27 05:43] LABS: HEMATOCRIT 33.8 % (35.0-51.0); MEAN CELL VOLUME 92.8 fl (80.0-94.0); MEAN CORPUSCULAR HGB CONC 33.4 g/dL (33.0-37.0); RED CELL DISTRIBUTION WIDTH 19.7 % (11.5-14.5); WHITE BLOOD COUNT 7.5 K/uL (4.8-10.8)
[2017-07-27 05:56] LABS: ALKALINE PHOSPHATASE 334 U/L (38-126); ALT/SGPT 63 U/L (21-72); AST/SGOT 157 U/L (17-59); BILIRUBIN,TOTAL 4.8 mg/dl (0.2-1.3); BLOOD UREA NITROGEN 10 mg/dl (9-20); CALCIUM 7.4 mg/dL (8.4-10.2); CARBON DIOXIDE 28 mmol/L (22-30); CHLORIDE 103 mmol/L (98-107); GFR AFRICAN-AMERICAN > 60; GLUCOSE,RANDOM 70 mg/dL (75-110); POTASSIUM 3.4 MMOL/L (3.6-5.0); SODIUM 136 mmol/l (132-148); TOTAL PROTEIN 4.8 G/DL (6.3-8.2)
[2017-07-27 06:01] LABS: ALB/GLOB RATIO 0.5 (1.0-2.1)
--- NOTE | 2017-07-27 07:17 | CP.PCM.PN ---
<Yoly Maurice - Last Filed: 07/27/17 08:55> Subjective - Date & Time of Evaluation Date of Evaluation: 07/27/17 Time of Evaluation: 07:15 - Subjective Subjective: GI Fellow PGY4 Progress Note Pt seen and evaluated at bedside, pt reports improving abdominal pain and tolerating diet. Pt denies nausea, vomiting, fevers or chills. Discussed with pt about possible IR drain, paracentesis vs conservative medical management. ROS: 12 Point ROS was negative unless specified Objective - Vital Signs/Intake and Output Vital Signs (last 24 hours): Temp Pulse Resp BP Pulse Ox 98.7 F 84 20 102/56 L 96 07/27/17 00:44 07/27/17 00:44 07/27/17 00:44 07/27/17 00:44 07/27/17 00:44 Intake and Output: 07/27/17 07/27/17 06:59 18:59 Intake Total 100 Balance 100 - Medications Medications: Current Medications Benzonatate (Tessalon Perles) 100 mg PO TID PRN PRN Reason: Cough Last Admin: 07/26/17 18:08 Dose: 100 mg Furosemide (Lasix) 40 mg PO DAILY [facility] Last Admin: 07/26/17 10:58 Dose: Not Given Hydromorphone HCl (Dilaudid) 0.5 mg IVP Q4 PRN PRN Reason: Pain, moderate (4-7) Last Admin: 07/26/17 23:09 Dose: 0.5 mg Piperacillin Sod/Tazobactam (Sod 3.375 gm/ Sodium Chloride) 100 mls @ 100 mls/ hr IVPB Q6 [facility] PRN Reason: Protocol Last Admin: 07/26/17 21:08 Dose: 100 mls/hr Lorazepam (Ativan) 1 mg PO Q12 [facility] Last Admin: 07/26/17 21:08 Dose: 1 mg Ondansetron HCl (Zofran Inj) 4 mg IVP Q4 PRN PRN Reason: Nausea/Vomiting Spironolactone (Aldactone) 100 mg PO DAILY [facility] Last Admin: 07/26/17 10:58 Dose: Not Given - Labs Labs: 07/27/17 04:40 07/27/17 04:40 PT 16.9 Seconds (9.8-13.1) H 07/26/17 04:45 INR 1.5 (0.9-1.2) H 07/26/17 04:45 APTT 33.3 Seconds (25.6-37.1) 07/24/17 07:00 - Constitutional Appears: Non-toxic, No Acute Distress - Head Exam Head Exam: ATRAUMATIC, NORMAL INSPECTION, NORMOCEPHALIC - Eye Exam Eye Exam: EOMI, Normal appearance, PERRL Pupil Exam: PERRL - ENT Exam ENT Exam: Mucous Membranes Moist, Normal Exam - Neck Exam Neck Exam: Full ROM, Normal Inspection - Respiratory Exam Respiratory Exam: Decreased Breath Sounds, NORMAL BREATHING PATTERN - Cardiovascular Exam Cardiovascular Exam: RRR, +S1, +S2 - GI/Abdominal Exam GI & Abdominal Exam: Distended, Soft, Tenderness, Normal Bowel Sounds. absent: Organomegaly - Rectal Exam Rectal Exam: Deferred - Extremities Exam Extremities Exam: Full ROM, Pedal Edema - Back Exam Back Exam: NORMAL INSPECTION - Neurological Exam Neurological Exam: Alert, Awake, Oriented x3 - Psychiatric Exam Psychiatric exam: Normal Affect, Normal Mood - Skin Skin Exam: Dry, Intact, Normal Color, Warm Assessment and Plan - Assessment and Plan (Free Text) Assessment: This is a 42yM with h/o of Hep C/alcoholic Cirrhosis presenting with acute onset of RUQ pain for 2days. 1. Acute cholecystitis 2. 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 Hep C 4. Alcohol abuse, DF 9.8 5. Transaminitis 6. Ascites Plan: -Continue supportive care with IV abx therapy -Agree with surgical that with a child yeh class C has increased risk of mortality 82% -Recommend possible IR cholecystostomy tube vs conservative medical management, consult IR for evaluation -Ordered paracentesis to r/o SBP, peritoneal fluid studies ordered -Pt should seek to be placed on transplant list for definite treatment of gallbladder pathology -Pt needs to stop drinking alcohol and counseling was provided -Pt will need to be treated for Hep C, follow up with Dr. Fajardo as outpt -Continue lasix and spironolactone for diuresis, monitor electrolytes -Plan discussed with primary team -Will continue to follow pt closely <Kerry Fajardo MD - Last Filed: 07/27/17 09:14> Objective - Vital Signs/Intake and Output Vital Signs (last 24 hours): Temp Pulse Resp BP Pulse Ox 98.8 F 96 H 18 104/58 L 96 07/27/17 08:00 07/27/17 08:00 07/27/17 08:00 07/27/17 08:46 07/27/17 08:00 Intake and Output: 07/27/17 07/27/17 06:59 18:59 Intake Total 100 Balance 100 - Medications Medications: Current Medications Benzonatate (Tessalon Perles) 100 mg PO TID PRN PRN Reason: Cough Last Admin: 07/26/17 18:08 Dose: 100 mg Furosemide (Lasix) 40 mg PO DAILY [facility] Last Admin: 07/27/17 08:46 Dose: Not Given Hydromorphone HCl (Dilaudid) 0.5 mg IVP Q4 PRN PRN Reason: Pain, moderate (4-7) Last Admin: 07/26/17 23:09 Dose: 0.5 mg Piperacillin Sod/Tazobactam (Sod 3.375 gm/ Sodium Chloride) 100 mls @ 100 mls/ hr IVPB Q6 [facility]ADEN PRN Reason: Protocol Last Admin: 07/27/17 09:12 Dose: 100 mls/hr Lorazepam (Ativan) 1 mg PO Q12 [facility] Last Admin: 07/27/17 08:46 Dose: Not Given Ondansetron HCl (Zofran Inj) 4 mg IVP Q4 PRN PRN Reason: Nausea/Vomiting Spironolactone (Aldactone) 100 mg PO DAILY [facility] Last Admin: 07/27/17 08:45 Dose: Not Given - Labs Labs: 07/27/17 04:40 07/27/17 04:40 PT 16.9 Seconds (9.8-13.1) H 07/26/17 04:45 INR 1.5 (0.9-1.2) H 07/26/17 04:45 APTT 33.3 Seconds (25.6-37.1) 07/24/17 07:00 Attending/Attestation - Attestation I have personally seen and examined this patient.: Yes I have fully participated in the care of the patient.: Yes I have reviewed all pertinent clinical information, including history, physical exam and plan: Yes Notes (Text): 07/27/17 09:13 Patient seen and examined with GI fellow at bedside. This is a 42 year old male with h/o Alcohol abuse, HCV Cirrhosis treatment naive admitted with acute cholecystitis. On antibiotics with CPT score C, high risk for abdominal surgery. Will treat conservatively and follow clinical progress. Counselled regarding alcohol cessation- relapsed alcoholic. Will get IR consult for potential drainage and watch clinical progress.
--- NOTE | 2017-07-27 07:57 | CP.PCM.PN ---
Subjective - Date & Time of Evaluation Date of Evaluation: 07/27/17 Time of Evaluation: 07:20 - Subjective Subjective: Patient seen and examined this morning. Tolerating diet. Reports RUQ pain only when coughing. No acute events over night. Objective - Vital Signs/Intake and Output Vital Signs (last 24 hours): Temp Pulse Resp BP Pulse Ox 98.7 F 84 20 102/56 L 96 07/27/17 00:44 07/27/17 00:44 07/27/17 00:44 07/27/17 00:44 07/27/17 00:44 Intake and Output: 07/27/17 07/27/17 06:59 18:59 Intake Total 100 Balance 100 - Medications Medications: Current Medications Benzonatate (Tessalon Perles) 100 mg PO TID PRN PRN Reason: Cough Last Admin: 07/26/17 18:08 Dose: 100 mg Furosemide (Lasix) 40 mg PO DAILY [facility] Last Admin: 07/26/17 10:58 Dose: Not Given Hydromorphone HCl (Dilaudid) 0.5 mg IVP Q4 PRN PRN Reason: Pain, moderate (4-7) Last Admin: 07/26/17 23:09 Dose: 0.5 mg Piperacillin Sod/Tazobactam (Sod 3.375 gm/ Sodium Chloride) 100 mls @ 100 mls/ hr IVPB Q6 JADEN PRN Reason: Protocol Last Admin: 07/26/17 21:08 Dose: 100 mls/hr Lorazepam (Ativan) 1 mg PO Q12 [facility] Last Admin: 07/26/17 21:08 Dose: 1 mg Ondansetron HCl (Zofran Inj) 4 mg IVP Q4 PRN PRN Reason: Nausea/Vomiting Spironolactone (Aldactone) 100 mg PO DAILY [facility] Last Admin: 07/26/17 10:58 Dose: Not Given - Labs Labs: 07/27/17 04:40 07/27/17 04:40 PT 16.9 Seconds (9.8-13.1) H 07/26/17 04:45 INR 1.5 (0.9-1.2) H 07/26/17 04:45 APTT 33.3 Seconds (25.6-37.1) 07/24/17 07:00 - Constitutional Appears: No Acute Distress - Head Exam Head Exam: NORMOCEPHALIC - Eye Exam Eye Exam: Normal appearance - ENT Exam ENT Exam: Mucous Membranes Moist - Respiratory Exam Respiratory Exam: NORMAL BREATHING PATTERN - Cardiovascular Exam Cardiovascular Exam: +S1, +S2 - GI/Abdominal Exam GI & Abdominal Exam: Distended. absent: Firm, Guarding, Rigid, Tenderness - Neurological Exam Neurological Exam: Alert, Awake, Oriented x3 - Psychiatric Exam Psychiatric exam: Normal Mood - Skin Skin Exam: Dry, Intact Assessment and Plan - Assessment and Plan (Free Text) Assessment: 42M w. abd pain, r/o cholecystitis -tolerating diet -LFTs improving -c/w abx -c/w analgesics -Poor surgical candidate. No plans for surgical intervention at this present time. -C/w medical management -GI recs appreciated - -d/w Dr. Jluis Aguirre PGY2
[2017-07-27] MEDS: Piperacillin/Tazobact 3.375 GM in Sodium Chloride 0.9% 100 ML IVPB SCH ×3 (09:12→21:14)
[2017-07-27] MEDS ORDERED: Lidocaine 1% Inj (20ml) ONE (09:55)
--- NOTE | 2017-07-27 10:46 | PCM.IRP ---
History of Present Illness - History of Present Illness History of Present Illness: IR consulted for cholecystostomy tube. Full consult to follow. Imaging studies reviewed and compared to CT abdomen and US abdomen 10/2016. Pt with GB wall thickening 1.4 cm and pericholecystic fluid in October. Again, the GB is distended and there is wall thickening and pericholecystic fluid. Pt seen today for diagnostic paracentesis. Abdominal examination is unremarkable with no tenderness over the GBwith manual or compression with US probe. Pt has no leukocytosis. This may represent chronic cholecystitis. We will await the HIDA scan before placing a cholecystostomy tube. PT INR will have to be corrected prior to cholecystostomy tube placement. Objective - Vital Signs/Intake and Output Vital Signs (last 24 hours): Vital Signs - 24 hr 07/26/17 07/26/17 07/26/17 13:09 16:50 19:44 Temperature 98.6 F 97.8 F 98.6 F Pulse Rate 95 H 94 H 97 H Respiratory 20 20 20 Rate Blood Pressure 120/64 114/62 116/68 O2 Sat by Pulse 97 96 96 Oximetry 07/26/17 07/27/17 07/27/17 20:57 00:44 08:00 Temperature 98.7 F 98.8 F Pulse Rate 92 H 84 96 H Respiratory 20 18 Rate Blood Pressure 102/56 L 104/58 L O2 Sat by Pulse 96 96 Oximetry 07/27/17 07/27/17 07/27/17 08:46 09:00 09:51 Temperature 98.4 F Pulse Rate 91 H 90 Respiratory 18 Rate Blood Pressure 104/58 L 125/78 O2 Sat by Pulse 100 Oximetry Intake and Output (last 12 hours): Intake & Output 07/26/17 07/27/17 07/27/17 18:59 06:59 18:59 Intake Total 1200 100 Balance 1200 100 Intake: IV 400 Intake, Piggyback 200 100 Oral 600 Other: # Voids Urine, Voided 4 - Medications Medications: Current Medications Benzonatate (Tessalon Perles) 100 mg PO TID PRN PRN Reason: Cough Last Admin: 07/26/17 18:08 Dose: 100 mg Furosemide (Lasix) 40 mg PO DAILY [facility] Last Admin: 07/27/17 08:46 Dose: Not Given Hydromorphone HCl (Dilaudid) 0.5 mg IVP Q4 PRN PRN Reason: Pain, moderate (4-7) Last Admin: 07/26/17 23:09 Dose: 0.5 mg Piperacillin Sod/Tazobactam (Sod 3.375 gm/ Sodium Chloride) 100 mls @ 100 mls/ hr IVPB Q6 JADEN PRN Reason: Protocol Last Admin: 07/27/17 09:12 Dose: 100 mls/hr Lorazepam (Ativan) 1 mg PO Q12 [facility] Last Admin: 07/27/17 08:46 Dose: Not Given Ondansetron HCl (Zofran Inj) 4 mg IVP Q4 PRN PRN Reason: Nausea/Vomiting Spironolactone (Aldactone) 100 mg PO DAILY [facility] Last Admin: 07/27/17 08:45 Dose: Not Given - Labs Labs (last 24 hours): Laboratory Results - last 24 hr 07/27/17 07/27/17 04:40 04:40 WBC 7.5 RBC 3.65 L Hgb 11.3 L Hct 33.8 L MCV 92.8 MCH 31.0 MCHC 33.4 RDW 19.7 H Plt Count 91 L Sodium 136 Potassium 3.4 L Chloride 103 Carbon Dioxide 28 Anion Gap 8 L BUN 10 Creatinine 0.8 Est GFR ( Amer) > 60 Est GFR (Non-Af Amer) > 60 Random Glucose 70 L Calcium 7.4 L Total Bilirubin 4.8 H AST 157 H D ALT 63 Alkaline Phosphatase 334 H Total Protein 4.8 L Albumin 1.7 L Globulin 3.1 Albumin/Globulin Ratio 0.5 L
--- NOTE | 2017-07-27 10:49 | PCM.SURG1 ---
Surgeon's Initial Post Op Note - Surgeon's Notes Surgeon: Silviano Holland MD Hand Stripper: NONE Type of Anesthesia: Local Pre-Operative Diagnosis: Cirrhosis, portal hypertension Operative Findings: US showed a very small amount of perihepatic fluid. GB is distended. Post-Operative Diagnosis: Cirrhosis, portal hypertension Operation Performed: US guided paracentesis. Specimen/Specimens Removed: 40 cc of clear yellow fluid Estimated Blood Loss: EBL {In ML}: 1 Blood Products Given: N/A Drains Used: No Drains Post-Op Condition: Fair Date of Surgery/Procedure: 07/27/17 Time of Surgery/Procedure: 10:40
--- NOTE | 2017-07-27 10:53 | CP.PCM.PN ---
Subjective - Date & Time of Evaluation Date of Evaluation: 07/27/17 Time of Evaluation: 08:00 - Subjective Subjective: 42 YO M is seen at bedside with Dr. Salinas. Patient is resting comfortably and has not had any overnight events. Patient has been explained he is not a good canidate for surgical intervention. Will continue with conservative measurements. Paracentesis, HIDA scan today and possibly a drain. Objective - Vital Signs/Intake and Output Vital Signs (last 24 hours): Temp Pulse Resp BP Pulse Ox 98.4 F 90 18 118/78 100 07/27/17 09:51 07/27/17 09:51 07/27/17 10:44 07/27/17 10:44 07/27/17 09:51 Intake and Output: 07/27/17 07/27/17 06:59 18:59 Intake Total 100 Balance 100 - Medications Medications: Current Medications Benzonatate (Tessalon Perles) 100 mg PO TID PRN PRN Reason: Cough Last Admin: 07/26/17 18:08 Dose: 100 mg Furosemide (Lasix) 40 mg PO DAILY [facility] Last Admin: 07/27/17 08:46 Dose: Not Given Hydromorphone HCl (Dilaudid) 0.5 mg IVP Q4 PRN PRN Reason: Pain, moderate (4-7) Last Admin: 07/26/17 23:09 Dose: 0.5 mg Piperacillin Sod/Tazobactam (Sod 3.375 gm/ Sodium Chloride) 100 mls @ 100 mls/ hr IVPB Q6 JADEN PRN Reason: Protocol Last Admin: 07/27/17 09:12 Dose: 100 mls/hr Lorazepam (Ativan) 1 mg PO Q12 [facility] Last Admin: 07/27/17 08:46 Dose: Not Given Ondansetron HCl (Zofran Inj) 4 mg IVP Q4 PRN PRN Reason: Nausea/Vomiting Spironolactone (Aldactone) 100 mg PO DAILY [facility] Last Admin: 07/27/17 08:45 Dose: Not Given - Labs Labs: 07/27/17 04:40 07/27/17 04:40 PT 16.9 Seconds (9.8-13.1) H 07/26/17 04:45 INR 1.5 (0.9-1.2) H 07/26/17 04:45 APTT 33.3 Seconds (25.6-37.1) 07/24/17 07:00 - Constitutional Appears: No Acute Distress - Head Exam Head Exam: NORMAL INSPECTION - Neck Exam Neck Exam: Normal Inspection - Respiratory Exam Respiratory Exam: Decreased Breath Sounds, Rhonchi, NORMAL BREATHING PATTERN. absent: Accessory Muscle Use, Wheezes - Cardiovascular Exam Cardiovascular Exam: REGULAR RHYTHM, +S1, +S2 - GI/Abdominal Exam GI & Abdominal Exam: Distended, Tenderness, Normal Bowel Sounds - Extremities Exam Extremities Exam: Pedal Edema. absent: Calf Tenderness - Neurological Exam Neurological Exam: Alert, Awake, CN II-XII Intact, Oriented x3 - Skin Skin Exam: Normal Color, Warm Assessment and Plan - Assessment and Plan (Free Text) Assessment: 1) Acute cholecystitis - IV antibiotics - F/U with HIDA scan 2) Cirrhosis - Child Yeh Class C - MELD: 15 3) Hep C - F/U with Dr. Fajardo outpatient for treatment 4) Ascitis - Paracentesis today - Lasix and spirnolactone
[2017-07-27 11:10] LABS: BODY FLUID TYPE PERITONEAL/ASCITES
--- NOTE | 2017-07-27 12:07 | US ---
Date of Procedure: 07/27/2017 PROCEDURE: Ultrasound-guided paracentesis, CPT 89748 Medications: 7 cc 1% Lidocaine HISTORY: Ascites, abdominal pain, cirrhosis TECHNIQUE: Following informed consent , the patient was placed supine on the stretcher and the site was marked. A limited abdominal ultrasound was performed that showed a very small amount of intra-abdominal fluid. Procedural time out was called and the Pt's abdomen was marked and prepped and draped in the usual sterile fashion. Ultrasound-guided paracentesis performed. A total of 400 cc of straw colored fluid was removed without complication. Fluid specimen was sent for culture, sensitivity, cytology and chemistries. IMPRESSION: Pt with a very small amount of ascites. Ultrasound-guided paracentesis performed with removal of 400 cc of fluid.
[2017-07-27] MEDS: HYDROmorphone 0.5 mg/0.5 ml ISec IVP PRN ×3 (13:15→23:17)
[2017-07-27 13:22] LABS: BF GROSS APPEARANCE CLEAR (CLEAR)
[2017-07-27 13:38] LABS: BODY FLUID TOTAL COUNT 100 (0-0)
--- NOTE | 2017-07-27 15:00 | NM ---
PROCEDURE: Nuclear Medicine Hepatobiliary Scan HISTORY: r/o cholecystitis COMPARISON: None available. TECHNIQUE: 5.500 mCi of technetium 99m Mebrofenin was administered intravenously. Planar images of the abdomen were obtained at 5 min intervals to 60 mins. Delayed images were also obtained. FINDINGS: LIVER: Timely and homogenous uptake. COMMON BILE DUCT: identified at 5 mins. GALLBLADDER: identified at 15 mins. SMALL BOWEL: Identified at 20 mins. IMPRESSION: Normal Hepatobiliary Scan. The cystic duct is patent.
[2017-07-27] MEDS: Potassium Chloride 20 mEq ER Tab PO SCH (16:22)
[2017-07-28] MEDS: HYDROmorphone 0.5 mg/0.5 ml ISec IVP PRN (03:14)
[2017-07-28] MEDS: Piperacillin/Tazobact 3.375 GM in Sodium Chloride 0.9% 100 ML IVPB SCH ×2 (03:14→09:25)
[2017-07-28 08:26] VITALS: O2SAT 99
[2017-07-28] MEDS: Potassium Chloride 20 mEq ER Tab PO SCH (08:30)
--- NOTE | 2017-07-28 09:59 | CP.PCM.PN ---
<Yoly Maurice - Last Filed: 07/28/17 11:03> Subjective - Date & Time of Evaluation Date of Evaluation: 07/28/17 Time of Evaluation: 09:30 - Subjective Subjective: GI Fellow PGY4 Progress Note Pt seen and evaluated at bedside, pt reports no abdominal pain, only discomfort from cough. Tolerating diet. Pt denies nausea, vomiting, fevers or chills. Discussed with pt about possible IR drain vs conservative medical management. ROS: 12 Point ROS was negative unless specified Objective - Vital Signs/Intake and Output Vital Signs (last 24 hours): Temp Pulse Resp BP Pulse Ox 98.6 F 87 18 100/61 99 07/28/17 08:00 07/28/17 08:00 07/28/17 08:00 07/28/17 08:30 07/28/17 08:00 - Medications Medications: Current Medications Benzonatate (Tessalon Perles) 100 mg PO TID PRN PRN Reason: Cough Last Admin: 07/28/17 09:32 Dose: 100 mg Furosemide (Lasix) 40 mg PO DAILY [facility] Last Admin: 07/28/17 08:30 Dose: 40 mg Hydromorphone HCl (Dilaudid) 0.5 mg IVP Q4 PRN PRN Reason: Pain, moderate (4-7) Last Admin: 07/28/17 03:14 Dose: 0.5 mg Piperacillin Sod/Tazobactam (Sod 3.375 gm/ Sodium Chloride) 100 mls @ 100 mls/ hr IVPB Q6 [facility] PRN Reason: Protocol Last Admin: 07/28/17 09:25 Dose: 100 mls/hr Lorazepam (Ativan) 1 mg PO Q12 [facility] Last Admin: 07/28/17 09:25 Dose: 1 mg Ondansetron HCl (Zofran Inj) 4 mg IVP Q4 PRN PRN Reason: Nausea/Vomiting Potassium Chloride (K-Dur 20 Meq Er Tab) 20 meq PO DAILY [facility] Last Admin: 07/28/17 08:30 Dose: 20 meq Spironolactone (Aldactone) 100 mg PO DAILY [facility] Last Admin: 07/28/17 08:30 Dose: 100 mg - Labs Labs: 07/27/17 04:40 07/27/17 04:40 PT 16.9 Seconds (9.8-13.1) H 07/26/17 04:45 INR 1.5 (0.9-1.2) H 07/26/17 04:45 APTT 33.3 Seconds (25.6-37.1) 07/24/17 07:00 - Constitutional Appears: Non-toxic, No Acute Distress, Chronically Ill - Head Exam Head Exam: ATRAUMATIC, NORMAL INSPECTION, NORMOCEPHALIC - Eye Exam Eye Exam: EOMI, Normal appearance, PERRL Pupil Exam: PERRL - ENT Exam ENT Exam: Mucous Membranes Moist, Normal Exam - Neck Exam Neck Exam: Full ROM, Normal Inspection - Respiratory Exam Respiratory Exam: Clear to Ausculation Bilateral, NORMAL BREATHING PATTERN - Cardiovascular Exam Cardiovascular Exam: RRR, +S1, +S2 - GI/Abdominal Exam GI & Abdominal Exam: Distended, Soft, Tenderness, Normal Bowel Sounds. absent: Organomegaly - Rectal Exam Rectal Exam: Deferred - Extremities Exam Extremities Exam: Full ROM, Pedal Edema - Back Exam Back Exam: NORMAL INSPECTION - Neurological Exam Neurological Exam: Alert, Awake, Oriented x3 - Psychiatric Exam Psychiatric exam: Normal Affect, Normal Mood - Skin Skin Exam: Dry, Intact, Normal Color, Warm Assessment and Plan - Assessment and Plan (Free Text) Assessment: This is a 42yM with h/o of Hep C/alcoholic Cirrhosis presenting with acute onset of RUQ pain for 2days. 1. Acute cholecystitis 2. 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 Hep C 4. Alcohol abuse, DF 9.8 5. Transaminitis 6. Ascites Plan: -Continue supportive care with abx therapy -Agree with surgical team that with a child yeh class C has increased risk of mortality 82% -IR ordered HIDA scan which is negative, conservative medical management with abx -Ordered paracentesis no SBP -Pt will need to be treated for Hep C, follow up with Dr. Fajardo as outpt -Continue lasix and spironolactone for diuresis, monitor electrolytes -Plan discussed with primary team -Will continue to follow pt closely <Kerry Fajardo MD - Last Filed: 07/28/17 20:35> Objective - Vital Signs/Intake and Output Vital Signs (last 24 hours): Temp Pulse Resp BP Pulse Ox 97.5 F L 88 20 115/72 99 07/28/17 12:00 07/28/17 12:00 07/28/17 12:00 07/28/17 12:00 07/28/17 12:00 Intake and Output: 07/28/17 07/29/17 18:59 06:59 Intake Total 1110 Balance 1110 - Labs Labs: 07/27/17 04:40 07/27/17 04:40 PT 16.9 Seconds (9.8-13.1) H 07/26/17 04:45 INR 1.5 (0.9-1.2) H 07/26/17 04:45 APTT 33.3 Seconds (25.6-37.1) 07/24/17 07:00 Attending/Attestation - Attestation I have personally seen and examined this patient.: Yes I have fully participated in the care of the patient.: Yes I have reviewed all pertinent clinical information, including history, physical exam and plan: Yes Notes (Text): 07/28/17 20:22 This is a 42 yr old M with h/o of HCV and alcoholic cirrhosis presenting with acute onset of RUQ pain for 2days and cholelithiasis. HIDA negative. MELD 15, Child Yeh Class C with increased risk of mortality. Continue medical management and diuresis with diuretics. No SBP on paracentesis. Will follow as outpatient with me
[2017-07-28 12:06] VITALS: BP 115/72; PULSE 88; RESP 20; TEMP 97.5
--- NOTE | 2017-07-28 13:48 | CP.PCM.PCO ---
Assessment & Plan - Assessment and Plan (Free Text) Assessment: patient doing well today denies sob, cp, fever, chills, n/v, or abd pain Pt will need to be treated for Hep C, follow up with Dr. Fajardo as outpt pt. cleared for discharge to Home today by and , , and sx cont. augmentin 875 mg po q12 pt. instructed re ETOH abstinence; instructed to f/u with in 4 weeks E Rx all med to pt. preferred [facility]
[2017-07-28] MEDS ORDERED: Piperacill/Tazo 3.375gm in Dex 3.375 GM/50 ML BAG IVPB SCH (16:00)
--- NOTE | 2017-07-28 16:03 | CP.PCM.DIS ---
Provider - Provider Date of Admission: 07/24/17 11:23 Attending physician: Wild Salinas MD Time Spent in preparation of Discharge (in minutes): 30 Diagnosis - Discharge Diagnosis (1) Alcoholic cirrhosis of liver Status: Chronic Hospital Course - Lab Results Lab Results: Micro Results 07/24/17 13:00 Blood Blood Culture - Preliminary NO GROWTH AFTER 4 DAYS 07/27/17 11:00 Body Fluid - Ascites Fluid Gram Stain - Final 07/27/17 11:00 Body Fluid - Ascites Fluid Body Fluid Culture - Preliminary NO GROWTH AFTER 24 HOURS Most Recent Lab Values WBC 7.5 K/uL (4.8-10.8) 07/27/17 04:40 RBC 3.65 Mil/uL (4.40-5.90) L 07/27/17 04:40 Hgb 11.3 g/dL (12.0-18.0) L 07/27/17 04:40 Hct 33.8 % (35.0-51.0) L 07/27/17 04:40 MCV 92.8 fl (80.0-94.0) 07/27/17 04:40 MCH 31.0 pg (27.0-31.0) 07/27/17 04:40 MCHC 33.4 g/dL (33.0-37.0) 07/27/17 04:40 RDW 19.7 % (11.5-14.5) H 07/27/17 04:40 Plt Count 91 K/uL (130-400) L 07/27/17 04:40 MPV 9.1 fl (7.2-11.7) 07/24/17 06:46 Neut % (Auto) 63.4 % (50.0-75.0) 07/24/17 06:46 Lymph % (Auto) 15.9 % (20.0-40.0) L 07/24/17 06:46 [place]gett % (Auto) 18.8 % (0.0-10.0) H 07/24/17 06:46 Eos % (Auto) 1.1 % (0.0-4.0) 07/24/17 06:46 Baso % (Auto) 0.8 % (0.0-2.0) 07/24/17 06:46 Neut # 4.8 K/uL (1.8-7.0) 07/24/17 06:46 Lymph # 1.2 K/uL (1.0-4.3) 07/24/17 06:46 Daggett # 1.4 K/uL (0.0-0.8) H 07/24/17 06:46 Eos # 0.1 K/uL (0.0-0.7) 07/24/17 06:46 Baso # 0.1 K/uL (0.0-0.2) 07/24/17 06:46 Neutrophils % (Manual) 84 % (42-75) H 07/25/17 08:30 Lymphocytes % (Manual) 4 % (20-50) L 07/25/17 08:30 Monocytes % (Manual) 9 % (0-10) 07/25/17 08:30 Eosinophils % (Manual) 3 % (0-7) 07/25/17 08:30 Platelet Estimate Slightly decreased (NORMAL) L 07/25/17 08:30 Giant Platelets Present 07/25/17 08:30 Poikilocytosis (manual Moderate 07/25/17 08:30 Anisocytosis (manual) Marked 07/25/17 08:30 Tear Drop Cells Slight 07/25/17 08:30 Ovalocytes Slight 07/25/17 08:30 PT 16.9 Seconds (9.8-13.1) H 07/26/17 04:45 INR 1.5 (0.9-1.2) H 07/26/17 04:45 APTT 33.3 Seconds (25.6-37.1) 07/24/17 07:00 Sodium 136 mmol/l (132-148) 07/27/17 04:40 Potassium 3.4 MMOL/L (3.6-5.0) L 07/27/17 04:40 Chloride 103 mmol/L (98-107) 07/27/17 04:40 Carbon Dioxide 28 mmol/L (22-30) 07/27/17 04:40 Anion Gap 8 (10-20) L 07/27/17 04:40 BUN 10 mg/dl (9-20) 07/27/17 04:40 Creatinine 0.8 mg/dL (0.8-1.5) 07/27/17 04:40 Est GFR ( Amer) > 60 07/27/17 04:40 Est GFR (Non-Af Amer) > 60 07/27/17 04:40 Random Glucose 70 mg/dL (75-110) L 07/27/17 04:40 Calcium 7.4 mg/dL (8.4-10.2) L 07/27/17 04:40 Total Bilirubin 4.8 mg/dl (0.2-1.3) H 07/27/17 04:40 Direct Bilirubin 4.1 mg/ml (0.0-0.4) H 07/24/17 06:46 AST 157 U/L (17-59) H D 07/27/17 04:40 ALT 63 U/L (21-72) 07/27/17 04:40 Alkaline Phosphatase 334 U/L (38-126) H 07/27/17 04:40 Ammonia 67 umo/L (16-60) H 07/24/17 06:45 Total Protein 4.8 G/DL (6.3-8.2) L 07/27/17 04:40 Albumin 1.7 g/dL (3.5-5.0) L 07/27/17 04:40 Globulin 3.1 gm/dL (2.2-3.9) 07/27/17 04:40 Albumin/Globulin Ratio 0.5 (1.0-2.1) L 07/27/17 04:40 Lipase 235 U/L (23-300) 07/24/17 06:46 Urine Color Jessica (YELLOW) 07/24/17 07:00 Urine Clarity Slighty-cloudy (Clear) 07/24/17 07:00 Urine pH 6.0 (5.0-8.0) 07/24/17 07:00 Ur Specific [place] 1.010 (1.003-1.030) 07/24/17 07:00 Urine Protein Negative mg/dL (NEGATIVE) 07/24/17 07:00 Urine Glucose (UA) Neg mg/dL (Normal) 07/24/17 07:00 Urine Ketones Negative mg/dL (NEGATIVE) 07/24/17 07:00 Urine Blood Large (NEGATIVE) 07/24/17 07:00 Urine Nitrate Negative (NEGATIVE) 07/24/17 07:00 Urine Bilirubin Negative (NEGATIVE) 07/24/17 07:00 Urine Urobilinogen 0.2-1.0 mg/dL (0.2-1.0) 07/24/17 07:00 Ur Leukocyte Esterase Neg Yadira/uL (Negative) 07/24/17 07:00 Urine RBC (Auto) 42 /hpf (0-3) H 07/24/17 07:00 Urine Microscopic WBC < 1 /hpf (0-5) 07/24/17 07:00 Ur Squamous Epith Cells < 1 /hpf (0-5) 07/24/17 07:00 Urine Bacteria Occ (<OCC) H 07/24/17 07:00 Fluid Source Peritoneal/ascites 07/27/17 11:00 Fluid Appearance Clear (CLEAR) 07/27/17 11:00 Fluid WBC 119.0 /mm3 (0.0-300.0) 07/27/17 11:00 Fluid RBC 178.0 /mm3 (0.0-0.0) H 07/27/17 11:00 Fluid Tot Cell Count 100 (0-0) H 07/27/17 11:00 Fluid Neutrophils 51.0 % (0-0) H 07/27/17 11:00 Fluid Lymphocytes 23.0 % (0-0) H 07/27/17 11:00 Fld Monocyte/Macrophag 26 % (0-0) H 07/27/17 11:00 Fluid Total Protein < 2.0 g/dL (NONE ESTABLISHED) 07/27/17 11:00 Fluid Comment Yellow 07/27/17 11:00 Urine Opiates Screen Negative (NEGATIVE) 07/24/17 07:00 Urine Methadone Screen Negative (NEGATIVE) 07/24/17 07:00 Ur Barbiturates Screen Negative (NEGATIVE) 07/24/17 07:00 Ur Phencyclidine Scrn Negative (NEGATIVE) 07/24/17 07:00 Ur Amphetamines Screen Negative (NEGATIVE) 07/24/17 07:00 U Benzodiazepines Scrn Negative (NEGATIVE) 07/24/17 07:00 U Oth Cocaine Metabols Negative (NEGATIVE) 07/24/17 07:00 U Cannabinoids Screen Negative (NEGATIVE) 07/24/17 07:00 Blood Type O NEGATIVE 07/24/17 06:43 Antibody Screen Negative 07/24/17 06:43 BBK History Checked Patient has bt 07/24/17 06:43 - Hospital Course Hospital Course: 1) Acute cholecystitis - IV antibiotics in hospital - HIDA scan: WNL 2) Cirrhosis - Child Yeh Class C - MELD: 15 3) Hep C - F/U with Dr. Fajardo outpatient for treatment 4) Ascitis - Paracentesis done while in hospital - Lasix and spirnolactone patient doing well today denies sob, cp, fever, chills, n/v, or abd pain Pt will need to be treated for Hep C, follow up with Dr. Fajardo as outpt cont. augmentin 875 mg po q12 pt. instructed re ETOH abstinence; instructed to f/u with in 4 weeks E Rx all med to pt. preferred [facility] pharmacy Discharge Exam - Head Exam Head Exam: ATRAUMATIC, NORMAL INSPECTION, NORMOCEPHALIC - Eye Exam Eye Exam: Normal appearance - Respiratory Exam Respiratory Exam: Clear to PA & Lateral, NORMAL BREATHING PATTERN. absent: Rales, Rhonchi - Cardiovascular Exam Cardiovascular Exam: REGULAR RHYTHM, +S1, +S2 - GI/Abdominal Exam GI & Abdominal Exam: Distended - Extremities Exam Extremities exam: pedal edema - Neurological Exam Neurological exam: Alert, CN II-XII Intact, Oriented x3 Discharge Plan - Discharge Medications Prescriptions: Amoxicillin/Clavulanate [Augmentin 875 MG-125 MG] 1 tab PO Q12 #20 tab Furosemide [Lasix] 40 mg PO DAILY #30 tab Lactobacillus Acidophilus [Bacid Acidophilus] 1 cap PO BID #20 cap Spironolactone [Aldactone] 100 mg PO DAILY #30 tab - Follow Up Plan Condition: FAIR Disposition: HOME/ ROUTINE Instructions: Cholecystitis (DC), Hypokalemia (DC) Additional Instructions: patient doing well today denies sob, cp, fever, chills, n/v, or abd pain Pt will need to be treated for Hep C, follow up with Dr. Fajardo as outpt pt. cleared for discharge to Home today by and , , and sx cont. augmentin 875 mg po q12 pt. instructed re ETOH abstinence; instructed to f/u with in 4 weeks E Rx all med to pt. preferred [facility] Referrals: Tana MAJANO,MD Kerry [Medical Doctor] -
[2017-07-28 20:51] LABS: AMIKACIN <2.5 mg/L (see note)
== END 2017-07-28 15:56 | disposition home or self-care (01) | DRG 207 ==
LOC: H.ER 05:53 → H.TEL 11:23
PROVIDERS: ADMIT Family Medicine; ATTEND Family Medicine
PROC: 3E0234Z Introduction of Serum, Toxoid and Vaccine into Muscle, Percutaneous Approach (ICD-10-PCS; 2017-07-25)
PROC: 0W9G3ZZ Drainage of Peritoneal Cavity, Percutaneous Approach (ICD-10-PCS; principal; 2017-07-27)
DX: K81.0 Acute cholecystitis (principal); E87.6 Hypokalemia; K76.6 Portal hypertension; K70.31 Alcoholic cirrhosis of liver with ascites; F10.29 Alcohol dependence with unspecified alcohol-induced disorder; B19.20 Unspecified viral hepatitis C without hepatic coma; J45.909 Unspecified asthma, uncomplicated; F17.210 Nicotine dependence, cigarettes, uncomplicated; Z23 Encounter for immunization

== ENCOUNTER 2017-07-31 04:41 | Emergency (ER) | payer OTHER ==
[2017-07-31 05:38] VITALS: TEMP 98.3
--- NOTE | 2017-07-31 06:43 | ED PDOC ---
Lower Extremity Pain/Injury Time Seen by Provider: 07/31/17 05:47 Chief Complaint (Nursing): Lower Extremity Problem/Injury Chief Complaint (Provider): Lower Extremity Swelling History Per: Patient History/Exam Limitations: no limitations Onset/Duration Of Symptoms: Days (x 2) Current Symptoms Are (Timing): Still Present Additional Complaint(s): 42 y/o male with a history of liver cirrhosis second to Hep C was recently hospitalized and discharged 2 days ago. Since then, his lower extremities have been progressively swelling. He reports taking diuretics as prescribed and denies associated chest pain, shortness of breath, abdominal pain , fever, cough, nausea, vomiting, or diarrhea. He recently had paracentesis for swelling and his belly has not reaccumulated fluid. PMD: Rose Marie Fajardo Past Medical History Reviewed: Historical Data, Nursing Documentation, Vital Signs Vital Signs: Last Vital Signs Temp 98.3 F 07/31/17 05:32 Pulse 99 H 07/31/17 05:32 Resp 18 07/31/17 05:32 BP 119/62 07/31/17 05:32 Pulse Ox 100 07/31/17 05:32 - Medical History PMH: Anemia, Asthma Denies: Chronic Kidney Disease Other PMH: liver cirrhosis - Family History Family History: States: Unknown Family Hx - Home Medications Home Medications: Ambulatory Orders Medication Instructions Recorded Amoxicillin/Clavulanate [Augmentin 1 tab PO Q12 #20 tab 07/28/17 875 MG-125 MG] Furosemide [Lasix] 40 mg PO DAILY #30 tab 07/28/17 Lactobacillus Acidophilus [Bacid 1 cap PO BID #20 cap 07/28/17 Acidophilus] Spironolactone [Aldactone] 100 mg PO DAILY #30 tab 07/28/17 - Allergies Allergies/Adverse Reactions: Allergies Allergy/AdvReac Type Severity Reaction Status Date / Time No Known Allergies Allergy Verified 07/31/17 05:32 Review of Systems ROS Statement: Except As Marked, All Systems Reviewed And Found Negative Constitutional: Negative for: Fever Cardiovascular: Negative for: Chest Pain Respiratory: Negative for: Cough, Shortness of Breath Gastrointestinal: Negative for: Nausea, Vomiting, Abdominal Pain, Diarrhea Musculoskeletal: Positive for: Other (leg swelling) Physical Exam - Reviewed Nursing Documentation Reviewed: Yes Vital Signs Reviewed: Yes - Physical Exam Appears: Positive for: Non-toxic, No Acute Distress Head Exam: Positive for: ATRAUMATIC, NORMAL INSPECTION, NORMOCEPHALIC Skin: Positive for: Normal Color, Warm, Dry Eye Exam: Positive for: EOMI, Normal appearance, PERRL ENT: Positive for: Normal ENT Inspection Neck: Positive for: Normal, Painless ROM, Supple Cardiovascular/Chest: Positive for: Regular Rate, Rhythm. Negative for: Edema, Murmur Respiratory: Positive for: Normal Breath Sounds. Negative for: Wheezing, Respiratory Distress Gastrointestinal/Abdominal: Positive for: Normal Exam, Bowel Sounds, Soft, Asicites (1+). Negative for: Tenderness Back: Positive for: Normal Inspection Extremity: Positive for: Normal ROM (Right: 3+ edema, warm to tough; Left: 2+ edema), Swelling. Negative for: Deformity Neurologic/Psych: Positive for: Alert, Oriented - Laboratory Results Result Diagrams: 07/31/17 06:35 07/31/17 06:35 - ECG O2 Sat by Pulse Oximetry: 100 Medical Decision Making Medical Decision Making: Time: 6:04 Initial Impression: 42 y/o male with lower extremity edema in setting of liver cirrhosis and recent hospitalization Initial Plan: --EKG --Alcohol Serum --CMP --Urine Drug Screen --CBC --PTT --Prothrombin Time --US Duplex Lower Extremity Time: 7:00 --Patient signed out to Dr. James pending labs and US Scribe Attestation: Documented by Shane Liu, acting as a scribe for Dr. Ashkan Costello MD. Provider Scribe Attestation: All medical record entries made by the Scribe were at my direction and personally dictated by me. I have reviewed the chart and agree that the record accurately reflects my personal performance of the history, physical exam, medical decision making, and the department course for this patient. I have also personally directed, reviewed, and agree with the discharge instructions and disposition. Disposition - Clinical Impression Clinical Impression: Leg edema, Cirrhosis - Patient ED Disposition Is Patient to be Admitted: Transfer of Care - Disposition Disposition: Transfer of Care Disposition Time: 07:00 Condition: STABLE Additional Instructions: Followup for further testing. AVOID ALL ALCOHOL. Patient Signed Over To: Walker James III
--- NOTE | 2017-07-31 07:00 | ED PDOC ---
- Laboratory Results Result Diagrams: 07/31/17 06:35 07/31/17 06:35 - ECG O2 Sat by Pulse Oximetry: 100 (RA) Pulse Ox Interpretation: Normal Medical Decision Making Medical Decision Making: endorsed from dr moran pending US duplex and labs LABS REVIEWED, consistent w cirrhosis. etoh 52 US prelim report reviewed counseled on findings, ambulating without difficulty, followup PMD and avoid alcohol. Disposition Counseled Patient/Family Regarding: Studies Performed, Diagnosis, Need For Followup, Rx Given - Clinical Impression Clinical Impression: Leg edema, Cirrhosis - POA Present On Arrival: None - Disposition Disposition: Routine/Home Disposition Time: 09:42 Condition: STABLE Additional Instructions: Followup for further testing. AVOID ALL ALCOHOL. Instructions: Leg Edema (ED), Cirrhosis (ED) Forms: [employer] (Guamanian)
[2017-07-31 07:21] LABS: BASO # 0.1 K/uL (0.0-0.2); BASO % 1.3 % (0.0-2.0); EOS # 0.1 K/uL (0.0-0.7); EOS % 1.5 % (0.0-4.0); HEMATOCRIT 33.5 % (35.0-51.0); LYMPH # 1.5 K/uL (1.0-4.3); LYMPH % 17.4 % (20.0-40.0); MEAN CELL VOLUME 93.5 fl (80.0-94.0); MEAN CORPUSCULAR HEMOGLOBIN 31.1 pg (27.0-31.0); MEAN CORPUSCULAR HGB CONC 33.2 g/dL (33.0-37.0); MEAN PLATELET VOLUME 8.6 fl (7.2-11.7); MONO # 1.3 K/uL (0.0-0.8); MONO % 15.7 % (0.0-10.0); NEUT # 5.4 K/uL (1.8-7.0); NEUT % 64.1 % (50.0-75.0); RED CELL DISTRIBUTION WIDTH 20.4 % (11.5-14.5); WHITE BLOOD COUNT 8.4 K/uL (4.8-10.8)
[2017-07-31 07:29] LABS: PARTIAL THROMBOPLASTIN TIME 33.7 Seconds (25.6-37.1)
[2017-07-31 07:35] LABS: ALB/GLOB RATIO 0.5 (1.0-2.1); ALCOHOL SERUM 52 mg/dl (0-10); ALKALINE PHOSPHATASE 328 U/L (38-126); ALT/SGPT 60 U/L (21-72); AST/SGOT 145 U/L (17-59); BILIRUBIN,TOTAL 3.1 mg/dl (0.2-1.3); BLOOD UREA NITROGEN 4 mg/dl (9-20); CALCIUM 7.2 mg/dL (8.4-10.2); CARBON DIOXIDE 23 mmol/L (22-30); CHLORIDE 107 mmol/L (98-107); GFR AFRICAN-AMERICAN > 60; GLUCOSE,RANDOM 99 mg/dL (75-110); POTASSIUM 3.6 MMOL/L (3.6-5.0); SODIUM 137 mmol/l (132-148); TOTAL PROTEIN 5.1 G/DL (6.3-8.2)
--- NOTE | 2017-07-31 08:16 | CARD ---
APPROVED REPORT EKG Measurement Heart [id number] <Conclusion> Normal sinus rhythm Normal ECG
[2017-07-31 09:18] LABS: RBC URINE 40 /hpf (0-3); URINE BACTERIA RARE (<OCC); URINE BILIRUBIN SMALL (NEGATIVE); URINE BLOOD LARGE (NEGATIVE); URINE COLOR AMBER (YELLOW); URINE GLUCOSE (UA) NEG (Normal); URINE KETONE NEGATIVE (NEGATIVE); URINE LEUKOCYTE ESTERASE NEG Leu/uL (Negative); URINE PROTEIN NEGATIVE (NEGATIVE)
[2017-07-31 09:22] LABS: WBC URINE 3 /hpf (0-5)
--- NOTE | 2017-07-31 09:38 | US ---
PROCEDURE: Bilateral lower extremity venous duplex Doppler. HISTORY: R/O DVT COMPARISON: None available. TECHNIQUE: Bilateral common femoral, superficial femoral, popliteal and posterior tibial veins were evaluated. Flow was assessed with color Doppler, compressibility, assessment of phasic flow and augmentation response. FINDINGS: COMMON FEMORAL VEIN: Right CFV: Unremarkable. Left CFV: Unremarkable. SUPERFICIAL FEMORAL VEIN: Right SFV: Unremarkable. Left SFV: Unremarkable. POPLITEAL VEIN: Right Popliteal: Unremarkable. Left Popliteal: Unremarkable. POSTERIOR TIBIAL VEIN: Right PTV: Unremarkable. Left PTV: Unremarkable. OTHER FINDINGS: None. IMPRESSION: No evidence of deep venous thrombosis.
[2017-07-31 10:08] VITALS: BP 123/71; PULSE 84; RESP 16
[2017-07-31 20:46] VITALS: O2SAT 100
== END 2017-07-31 10:08 | disposition home or self-care (01) ==
LOC: H.ER 04:41
DX: R60.0 Localized edema (principal); K74.60 Unspecified cirrhosis of liver; J45.909 Unspecified asthma, uncomplicated

== ENCOUNTER 2017-09-18 07:43 | Inpatient (IN) | payer MEDICAID, OTHER ==
[2017-09-18 07:48] VITALS: BMI 32.1
[2017-09-18] MEDS ORDERED: Iohexol 240 (50 ml) PO ONE (09:19)
[2017-09-18] MEDS ORDERED: Iohexol 240 (50 ml) ONE (09:45)
[2017-09-18] MEDS ORDERED: Morphine 4 MG/ML VIAL ONE ×2 (09:45→13:49)
[2017-09-18] MEDS ORDERED: Sodium Chloride 0.9% 1,000 ML IV STA (09:56)
[2017-09-18 10:07] LABS: VENOUS BLOOD GAS BASE EXCESS -4.2 mmol/L (0.0-2.0); VENOUS BLOOD GAS PCO2 32 mmHg (40-60); VENOUS BLOOD PH 7.39 (7.32-7.43)
[2017-09-18 11:03] LABS: BASO # 0.1 K/uL (0.0-0.2); BASO % 1.2 % (0.0-2.0); EOS # 0.2 K/uL (0.0-0.7); HEMATOCRIT 33.1 % (35.0-51.0); LYMPH # 0.8 K/uL (1.0-4.3); LYMPH % 10.1 % (20.0-40.0); MEAN CORPUSCULAR HGB CONC 33.6 g/dL (33.0-37.0); MEAN PLATELET VOLUME 10.2 fl (7.2-11.7); MONO # 1.4 K/uL (0.0-0.8); MONO % 17.9 % (0.0-10.0); NEUT # 5.5 K/uL (1.8-7.0); NEUT % 68.8 % (50.0-75.0); NRBC % 0.1 % (0.0-0.0); RED CELL DISTRIBUTION WIDTH 19.7 % (11.5-14.5)
[2017-09-18 11:11] LABS: MEAN CELL VOLUME 104.3 fl (80.0-94.0)
[2017-09-18 11:13] LABS: PARTIAL THROMBOPLASTIN TIME 34.3 Seconds (25.6-37.1)
[2017-09-18 11:25] LABS: ALKALINE PHOSPHATASE 355 U/L (38-126); ALT/SGPT 57 U/L (21-72); AST/SGOT 136 U/L (17-59); BILIRUBIN,TOTAL 17.5 mg/dl (0.2-1.3); BLOOD UREA NITROGEN 17 mg/dl (9-20); CALCIUM 7.8 mg/dL (8.4-10.2); CARBON DIOXIDE 18 mmol/L (22-30); CHLORIDE 105 mmol/L (98-107); GFR AFRICAN-AMERICAN > 60; GLUCOSE,RANDOM 127 mg/dL (75-110); LIPASE 486 U/L (23-300); POTASSIUM 4.3 MMOL/L (3.6-5.0); SODIUM 133 mmol/l (132-148)
[2017-09-18 11:26] LABS: ALB/GLOB RATIO 0.5 (1.0-2.1); TOTAL PROTEIN 6.3 G/DL (6.3-8.2)
[2017-09-18] MEDS ORDERED: Iohexol 300 100 ML IJ ONE (11:34)
[2017-09-18] MEDS ORDERED: DiphenhydrAMINE 50 mg/ml Inj IV STA (12:23)
--- NOTE | 2017-09-18 12:38 | CT ---
PROCEDURE: CT Abdomen and Pelvis with contrast HISTORY: abdominal pain hx cirrhosis COMPARISON: Abdomen and pelvis CT with contrast 08/15/2017. TECHNIQUE: Contrast dose: Omnipaque 300, 95 cc Radiation dose: Total exam DLP = 1124.02 mGy-cm. This CT exam was performed using one or more of the following dose reduction techniques: Automated exposure control, adjustment of the mA and/or kV according to patient size, and/or use of iterative reconstruction technique. FINDINGS: LOWER THORAX: Calcified granulomata again seen the left base and right middle lobe as well. Trace of pleural effusion is noted causing minimal compression atelectasis and bilateral gynecomastia is identified. LIVER: A nodular cirrhotic liver is inhomogeneous enhancing once again without definable underlying lesion appreciable grossly. Bilateral renal, gastrohepatic ligament and recannulized umbilical vein varices are again identified again indicating hepatofugal blood flow. GALLBLADDER AND BILE DUCTS: Grossly dilated. No radiodense cholelithiasis or prominent mural thickening. PANCREAS: Unremarkable. No gross lesion or ductal dilatation. SPLEEN: Splenomegaly is again appreciated without focal mass measuring up to 16.0 cm. ADRENALS: Unremarkable. No mass. KIDNEYS AND URETERS: Unremarkable. No hydronephrosis. No solid mass. VASCULATURE: Unremarkable. No aortic aneurysm. BOWEL: Unremarkable. No obstruction. No gross mural thickening. APPENDIX: Normal appendix. PERITONEUM: Unremarkable. No free fluid. No free air. LYMPH NODES: Unremarkable. No enlarged lymph nodes. BLADDER: Unremarkable. REPRODUCTIVE: Unremarkable. BONES: No acute fracture. OTHER FINDINGS: Persistent anasarca. IMPRESSION: 1. Nonspecific incidental ascites is now mild throughout the abdomen and pelvis, potentially a function of limited change in dynamics of hepatofugal blood flow though this is not definite. Further clinical correlation is advised. No free intrarenal casts, bowel or urinary tract obstruction appreciable. 2. Cirrhotic liver with hepatofugal blood flow and numerous varices again identified. 3. Splenomegaly to 16 cm likely related to impression 2. 4. Interval trace left pleural effusion and compressive atelectasis left base.
[2017-09-18 13:53] LABS: VENOUS BLOOD GAS BASE EXCESS -2.4 mmol/L (0.0-2.0); VENOUS BLOOD GAS PCO2 34 mmHg (40-60); VENOUS BLOOD PH 7.41 (7.32-7.43)
[2017-09-18] MEDS ORDERED: Piperacillin/Tazobact 3.375 GM in Sodium Chloride 0.9% 100 ML IVPB ONE (14:00)
--- NOTE | 2017-09-18 14:00 | ED PDOC ---
HPI: Abdomen Time Seen by Provider: 09/18/17 09:08 Chief Complaint (Nursing): Abdominal Pain Chief Complaint (Provider): abdominal pain History Per: Patient History/Exam Limitations: no limitations Onset/Duration Of Symptoms: Days (5) Outside of [place] travel?: No Current Symptoms Are (Timing): Still Present Context: Food Location Of Pain/Discomfort: Diffuse Quality Of Discomfort: Sharp Associated Symptoms: Nausea, Vomiting, Diarrhea, Back Pain Exacerbating Factors: Food Alleviating Factors: None Last Bowel Movement: Today Additional Complaint(s): 42yo male with ESLD, presents c/o diffuse abdominal pain, blood in stool, weakness. Admitted to [facility] last week, states compliance w medications. Past Medical History Reviewed: Historical Data, Nursing Documentation, Vital Signs Vital Signs: Last Vital Signs Temp 98.8 F 09/18/17 13:13 Pulse 94 H 09/18/17 13:13 Resp 20 09/18/17 13:13 BP 107/61 09/18/17 13:13 Pulse Ox 96 09/18/17 13:13 - Medical History PMH: Asthma, Gall Bladder Disease Denies: Anemia (Denies), Diabetes, Hepatitis, HIV, HTN, Chronic Kidney Disease, Seizures, Sexually Transmitted Disease Other PMH: liver disease - Family History Family History: States: Unknown Family Hx - Living Arrangements Living Arrangements: With Family - Social History Alcohol: Occasional - Immunization History Hx Tetanus Toxoid Vaccination: No Hx Influenza Vaccination: No Hx Pneumococcal Vaccination: No - Home Medications Home Medications: Ambulatory Orders Medication Instructions Recorded Furosemide [Lasix] 40 mg PO DAILY #30 tab 07/28/17 Spironolactone [Aldactone] 100 mg PO DAILY #30 tab 07/28/17 chlordiazePOXIDE [Chlordiazepoxide 25 mg PO Q8 PRN #12 cap 09/02/17 HCl] Famotidine [Pepcid] 20 mg PO DAILY 09/18/17 - Allergies Allergies/Adverse Reactions: Allergies Allergy/AdvReac Type Severity Reaction Status Date / Time No Known Allergies Allergy Verified 09/09/17 12:10 Review of Systems ROS Statement: Except As Marked, All Systems Reviewed And Found Negative Constitutional: Positive for: Weakness, Malaise. Negative for: Fever, Chills Cardiovascular: Negative for: Chest Pain, Palpitations Respiratory: Negative for: Cough Gastrointestinal: Positive for: Nausea, Vomiting, Abdominal Pain, Hematochezia. Negative for: Melena, Hematemesis Genitourinary Male: Negative for: Dysuria Musculoskeletal: Positive for: Back Pain, Leg Pain. Negative for: Neck Pain, Arm Pain Skin: Positive for: Jaundice, Bruising. Negative for: Rash, Lesions Neurological: Positive for: Headache, Dizziness. Negative for: Weakness, Numbness Psych: Positive for: Depression. Negative for: Suicidal ideation Physical Exam - Reviewed Nursing Documentation Reviewed: Yes Vital Signs Reviewed: Yes - Physical Exam Appears: Positive for: Non-toxic (ill but nontoxic appearing) Head Exam: Positive for: ATRAUMATIC, NORMAL INSPECTION, NORMOCEPHALIC Skin: Positive for: Normal Color, Warm, DRY Eye Exam: Positive for: EOMI, PERRL, Scleral icterus ENT: Positive for: Normal ENT Inspection Neck: Positive for: Normal, Painless ROM Cardiovascular/Chest: Positive for: Regular Rate, Rhythm, Tachycardia Respiratory: Positive for: Normal Breath Sounds. Negative for: Respiratory Distress Pulses-Radial (L): 2+ Pulses-Radial (R): 2+ Gastrointestinal/Abdominal: Positive for: Bowel Sounds, Soft, Tenderness, Distended, Asicites Back: Positive for: Normal Inspection Extremity: Positive for: Normal ROM, Tenderness, Other (anasarca) Neurologic/Psych: Positive for: Alert, Oriented. Negative for: Motor/Sensory Deficits - Laboratory Results Result Diagrams: 09/18/17 10:54 09/18/17 10:54 - ECG O2 Sat by Pulse Oximetry: 96 Pulse Ox Interpretation: Normal Medical Decision Making Medical Decision Making: workup for abd pain in cirrhotic patient initiated. R/o SBP, also known gallbladder disease from prior admissions. labs obtained and reviewed, revealing elev lactate WBC normal Did not meet SIRS on arrival. RR 18 Accession No. : [id number] Patient Name / ID : MARCELLE STEVEN / [id number] Exam Date : 09/18/2017 11:42:34 ( Approved ) Study Comment : Sex / Age : M / 42Y Creator : Darwin Calix MD Dictator : Darwin Calix MD Regional Agronomist : Induction Coordination Engineer : Darwin Calix MD Approver2 : Report Date : 09/18/2017 12:37:24 My Comment : PROCEDURE: CT Abdomen and Pelvis with contrast HISTORY: abdominal pain hx cirrhosis COMPARISON: Abdomen and pelvis CT with contrast 08/15/2017. TECHNIQUE: Contrast dose: Omnipaque 300, 95 cc Radiation dose: Total exam DLP = 1124.02 mGy-cm. This CT exam was performed using one or more of the following dose reduction techniques: Automated exposure control, adjustment of the mA and/or kV according to patient size, and/or use of iterative reconstruction technique. FINDINGS: LOWER THORAX: Calcified granulomata again seen the left base and right middle lobe as well. Trace of pleural effusion is noted causing minimal compression atelectasis and bilateral gynecomastia is identified. LIVER: A nodular cirrhotic liver is inhomogeneous enhancing once again without definable underlying lesion appreciable grossly. Bilateral renal, gastrohepatic ligament and recannulized umbilical vein varices are again identified again indicating hepatofugal blood flow. GALLBLADDER AND BILE DUCTS: Grossly dilated. No radiodense cholelithiasis or prominent mural thickening. PANCREAS: Unremarkable. No gross lesion or ductal dilatation. SPLEEN: Splenomegaly is again appreciated without focal mass measuring up to 16.0 cm. ADRENALS: Unremarkable. No mass. KIDNEYS AND URETERS: Unremarkable. No hydronephrosis. No solid mass. VASCULATURE: Unremarkable. No aortic aneurysm. BOWEL: Unremarkable. No obstruction. No gross mural thickening. APPENDIX: Normal appendix. PERITONEUM: Unremarkable. No free fluid. No free air. LYMPH NODES: Unremarkable. No enlarged lymph nodes. BLADDER: Unremarkable. REPRODUCTIVE: Unremarkable. BONES: No acute fracture. OTHER FINDINGS: Persistent anasarca. IMPRESSION: 1. Nonspecific incidental ascites is now mild throughout the abdomen and pelvis , potentially a function of limited change in dynamics of hepatofugal blood flow though this is not definite. Further clinical correlation is advised. No free intrarenal casts, bowel or urinary tract obstruction appreciable. 2. Cirrhotic liver with hepatofugal blood flow and numerous varices again identified. 3. Splenomegaly to 16 cm likely related to impression 2. 4. Interval trace left pleural effusion and compressive atelectasis left base. Patient required recurrent dosing narcotics to control pain. Admit Obs to FP service. Blood cultures obtained Zosyn started empirically if developing SBP. IVF continued Repeat lactate improved Disposition - Clinical Impression Clinical Impression: Abdominal pain, Ascites, Cirrhosis - Patient ED Disposition Is Patient to be Admitted: Yes Counseled Patient/Family Regarding: Studies Performed, Diagnosis - Disposition Referrals: Cristi Freitas MD [Primary Care Provider] - Disposition Time: 11:45 Condition: GUARDED - Pt Status Changed To: Hospital Disposition Of: Observation - POA Present On Arrival: Poor Glycemic Control
[2017-09-18] MEDS ORDERED: Multivitamin (MVI) 10 ML, Thiamine 100 MG in Sodium Chloride 0.9% 1,000 ML IV ONE ×2 (14:13→14:18)
--- NOTE | 2017-09-18 14:41 | CP.PCM.HP ---
History of Present Illness - History of Present Illness History of Present Illness: 42 YO M w/ PMH of Liver Cirrhosis secondary to ETOH abuse, chronic Hep C, presents to [facility] ED for worsening abdominal pain. As per patient he has been drinking alcohol every day since his last admission in [facility]. He drinks 9- 10 shots and sometimes more of vodka daily. He drank last night. As per patient his abdominal pain became 10/10 this morning and he had an episode of non bloody non billious vomiting this morning. Currently the pain is at a 6/10 with pain meds. - Patient was found to have cholecystitis in a previous CT, surgery had been consulted however patient is too high risk due to issues with his liver. - He was seen in the clinic on 09/02/17 he was advised to go to [facility] ER via ambulance for jaundice, ascitis and alcohol withdrawal at that time patient refused and preferred to go to [facility]. However at [facility] patient was seen and worked up and was getting rehab however states he became claustrophobic and signed out AMA. CIWA score of 8 in examination ROS: 12 pts reviewed, found to be negative PMD: Dr. Fajardo, last visit 04/12/2017, seen at [facility] 09/02/[address] Nieto PMHx: Chronic Hep C, Alcoholic Liver Cirrhosis Meds: Spironolactone 25mg, Lasix 40mg (not taking regularly) PsurgHx: none PhospHx: multiple admission for RUQ pain, treated with IV abx/diuresis. 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) FamilyHx: denies hx of cancer/PA/CAD/stroke -next of kin is mother Marija - Full code Present on Admission - Present on Admission Any Indicators Present on Admission: No Past Patient History - Past Medical History & Family History Past Medical History?: Yes - Past Social History Alcohol: Occasional - CARDIAC Hx Hypertension: No - PULMONARY Hx Asthma: Yes - NEUROLOGICAL Hx Seizures: No - HEENT Hx HEENT Problems: No - RENAL Hx Chronic Kidney Disease: No - ENDOCRINE/METABOLIC Hx Endocrine Disorders: No - HEMATOLOGICAL/ONCOLOGICAL Hx Anemia: No (Denies) Hx Human Immunodeficiency Virus (HIV): No - INTEGUMENTARY Hx Dermatological Problems: No - MUSCULOSKELETAL/RHEUMATOLOGICAL Hx Musculoskeletal Disorders: No Hx Falls: No (denies) - GASTROINTESTINAL Hx Gall Bladder Disease: Yes - GENITOURINARY/GYNECOLOGICAL Hx Sexually Transmitted Disorders: No - PSYCHIATRIC Hx Psychophysiologic Disorder: Yes (SEE COMMENT) Hx Substance Use: Yes (former heroin/cocain use 2001) Other/Comment: ALCOHOL ABUSE - SURGICAL HISTORY Hx Surgeries: No - ANESTHESIA Hx Anesthesia: No Hx Anesthesia Reactions: No Meds Allergies/Adverse Reactions: Allergies Allergy/AdvReac Type Severity Reaction Status Date / Time No Known Allergies Allergy Verified 09/09/17 12:10 Physical Exam - Constitutional Appears: No Acute Distress, Chronically Ill - Eye Exam Eye Exam: Scleral icterus - Respiratory Exam Respiratory Exam: NORMAL BREATHING PATTERN Additional comments: Slight crackles at base of lung on left - Cardiovascular Exam Cardiovascular Exam: REGULAR RHYTHM, +S1, +S2 - GI/Abdominal Exam GI & Abdominal Exam: Distended, Guarding, Normal Bowel Sounds, Soft, Tenderness Additional comments: periumbilical tenderness - Extremities Exam Extremities exam: Positive for: pedal pulses present. Negative for: calf tenderness, pedal edema - Neurological Exam Neurological exam: Alert, CN II-XII Intact, Oriented x3 - Skin Skin Exam: Dry Additional comments: Jaundiced skin. Scratch oglesby noted all over abdomen and arms. Results - Vital Signs Recent Vital Signs: Last Vital Signs Temp 98.8 F 09/18/17 13:13 Pulse 94 H 09/18/17 13:13 Resp 20 09/18/17 13:13 BP 107/61 09/18/17 13:13 Pulse Ox 96 09/18/17 14:06 - Labs Result Diagrams: 09/18/17 10:54 09/18/17 10:54 Labs: Laboratory Results - last 24 hr 09/18/17 09/18/17 09/18/17 09:32 10:54 10:54 WBC 8.0 RBC 3.17 L Hgb 11.1 L Hct 33.1 L MCV 104.3 H D MCH 35.0 H MCHC 33.6 RDW 19.7 H Plt Count 90 L MPV 10.2 Neut % (Auto) 68.8 Lymph % (Auto) 10.1 L [place] % (Auto) 17.9 H Eos % (Auto) 2.0 Baso % (Auto) 1.2 Neut # 5.5 Lymph # 0.8 L [place] # 1.4 H Eos # 0.2 Baso # 0.1 PT INR APTT pO2 68 H VBG pH 7.39 VBG pCO2 32 L VBG HCO3 21.4 VBG Total CO2 20.4 L VBG O2 Sat (Calc) 96.3 H VBG Base Excess -4.2 L VBG Potassium 4.4 Sodium 130.0 L 133 Chloride 102.0 105 Glucose 139 H Lactate 3.0 H FiO2 21.0 Potassium 4.3 Carbon Dioxide 18 L Anion Gap 14 BUN 17 Creatinine 1.3 Est GFR ( Amer) > 60 Est GFR (Non-Af Amer) > 60 Random Glucose 127 H Calcium 7.8 L Total Bilirubin 17.5 H AST 136 H ALT 57 Alkaline Phosphatase 355 H Total Protein 6.3 Albumin 2.1 L Globulin 4.3 H Albumin/Globulin Ratio 0.5 L Lipase 486 H Venous Blood Potassium 4.4 09/18/17 09/18/17 10:54 13:44 WBC RBC Hgb Hct MCV MCH MCHC RDW Plt Count MPV Neut % (Auto) Lymph % (Auto) [place] % (Auto) Eos % (Auto) Baso % (Auto) Neut # Lymph # [place] # Eos # Baso # PT 14.4 H INR 1.3 H APTT 34.3 pO2 44 VBG pH 7.41 VBG pCO2 34 L VBG HCO3 22.6 VBG Total CO2 22.6 VBG O2 Sat (Calc) 84.1 H VBG Base Excess -2.4 L VBG Potassium 4.0 Sodium 130.0 L Chloride 102.0 Glucose 84 Lactate 1.7 FiO2 21.0 Potassium Carbon Dioxide Anion Gap BUN Creatinine Est GFR ( Amer) Est GFR (Non-Af Amer) Random Glucose Calcium Total Bilirubin AST ALT Alkaline Phosphatase Total Protein Albumin Globulin Albumin/Globulin Ratio Lipase Venous Blood Potassium 4.0 Assessment & Plan - Assessment and Plan (Free Text) Assessment: 42 YO M w/ PMH of Alcoholic liver cirrhosis, Hep C, admitted for right sided periumbilical pain of uncertain etiology 1) Abdominal pain ( Cholycystitis vs Alcoholic hepatitis vs SBP) - NPO - Pain controlled with meds - previously noted to have chloleycystitis but was not a candidate for Surgery because of the severity of liver failure. - Total bilirub - MELD score: 25.7, Child Yeh Class C w/ a 76% mortality - Abd CT: Mild ascitic throughout abdomen and pelvis. Trace left pleural effusion. Cirrhotic liver. - Abd U/S: Liver measures : 19.2 cm. Gallbladder appears markedly distended without cholelithiasis . Acalculous cholecystitis is not favored but is not completely ruled out - Lactate intially 3.0 on repeat is 1.7 - Procalcitonin: 0.83 - Lipase: 486 - GI consulted - Emperic antibiotics started. Zosyn x 1 dose was given in the ER. C/W Ceftriaxone daily - F/U with blood cultures and urine cultures 2) Alcoholic Liver Cirrhosis - MELD score: 25.7, Child Yeh Class C w/ a 76% mortality - C/W Lasix and Spironolactone was diet is advanced - GI consult appreciated 3) ETOH abuse -bannana bag x 2 given - Librium 50mg PRN for withdrawl symptoms 4) Chronic Hep C - Not currently on any medications 5) DVT prophylaxis -SCD only, unable to give lovenox , platelets are 90 -
[2017-09-18 15:33] LABS: MAGNESIUM 2.1 MG/DL (1.6-2.3); PHOSPHOROUS 4.2 mg/dl (2.5-4.5)
[2017-09-18] MEDS: cefTRIAXone 2 GM in Sodium Chloride 0.9% 100 ML IVPB SCH (15:59)
--- NOTE | 2017-09-18 16:52 | US ---
HISTORY: possible cholecystitis COMPARISON: Abdomen pelvis CT with contrast 09/18/2017.. TECHNIQUE: Sonographic evaluation of the abdomen. FINDINGS: LIVER: Measures 9.2 cm. Normal echogenicity of the liver parenchyma. No mass. No intrahepatic bile duct dilatation. GALLBLADDER: Marked gallbladder distention is appreciated. No cholelithiasis is related. Mural thickening beyond 3 mm is probably a function of gallbladder hydrops given limited ascites rather than a calculus cholecystitis. COMMON BILE DUCT: Measures 4 mm in transverse dimension. No stones. No dilatation. PANCREAS: Unremarkable as visualized. No mass. No ductal dilatation. COMMON BILE DUCT: Measures 4 mm. No stones. No dilatation. RIGHT KIDNEY: Measures 13.5cm. Normal echogenicity. No calculus, mass, or hydronephrosis. LEFT KIDNEY: Measures 13.7cm. Normal echogenicity. No calculus, mass, or hydronephrosis. SPLEEN: Splenomegaly without discrete mass. AORTA: Poorly visualized. IVC: Poorly visualized. OTHER FINDINGS: None . IMPRESSION: Pectus completely obscured by gas potential gas as well as the majority of the abdominal aorta and inferior vena cava. Gallbladder is distended markedly without cholelithiasis related. Mild ascites is appreciated which likely accounts for gallbladder hydrops. There is no sonographic Dhillon sign. Clinically correlate further. Acalculous Cholecystitis is not favored but is not completely excluded.
[2017-09-18] MEDS: DiphenhydrAMINE 50 mg/ml Inj IVP PRN (18:29)
[2017-09-18] MEDS ORDERED: HYDROmorphone 0.5 mg/0.5 ml ISec IVP SCH (22:00)
[2017-09-19] MEDS: DiphenhydrAMINE 50 mg/ml Inj IVP PRN ×2 (00:25→08:45)
[2017-09-19] MEDS: Dextrose 5%/0.45% NS 1,000 ML IV SCH ×2 (00:26→11:28)
--- NOTE | 2017-09-19 08:15 | CP.PCM.CON ---
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 Patient is presenting with bilateral lower abdominal pain with one bilious vomitus episode. Oriented to person, place, and time with comprehensible slowed speech. He notes feeling bloated and having heartburn. Denies sick contacts, recent travel, recent antibiotics, hematemesis, diarrhea, constipation, melena, hematochezia, or unintentional weight loss. Prior EGD 01/2017 showed no varices, H pylori negative erosive gastropathy, and moderate portal hypertensive gastropathy. Of note, patient has chronic finding of dilated gallbladder hydrops deemed secondary to mild ascites with no associated gallstones, biliary dilatations, and normal HIDA scan 07/27/17. Surgical evaluation deemed to be a poor candidate due to cirrhosis and ongoing alcohol abuse. Family- denies stomach cancer, colon cancer, liver cancer Social -1/2ppd >20 years, 1-2 pints of liquor daily since teenager, quit heroin/ cocaine in 2001 Surgery- none Review of Systems - Review of Systems Review of Systems: 12-point review of systems negative except for as above Past Patient History - Past Medical History & Family History Past Medical History?: Yes - Past Social History Alcohol: Occasional - CARDIAC Hx Hypertension: No - PULMONARY Hx Asthma: Yes - NEUROLOGICAL Hx Seizures: No - HEENT Hx HEENT Problems: No - RENAL Hx Chronic Kidney Disease: No - ENDOCRINE/METABOLIC Hx Endocrine Disorders: No - HEMATOLOGICAL/ONCOLOGICAL Hx Anemia: No (Denies) Hx Human Immunodeficiency Virus (HIV): No - INTEGUMENTARY Hx Dermatological Problems: No - MUSCULOSKELETAL/RHEUMATOLOGICAL Hx Musculoskeletal Disorders: No Hx Falls: No (denies) - GASTROINTESTINAL Hx Gall Bladder Disease: Yes - GENITOURINARY/GYNECOLOGICAL Hx Sexually Transmitted Disorders: No - PSYCHIATRIC Hx Psychophysiologic Disorder: Yes (SEE COMMENT) Hx Substance Use: Yes (former heroin/cocain use 2001) Other/Comment: ALCOHOL ABUSE - SURGICAL HISTORY Hx Surgeries: No - ANESTHESIA Hx Anesthesia: No Hx Anesthesia Reactions: No Meds Allergies/Adverse Reactions: Allergies Allergy/AdvReac Type Severity Reaction Status Date / Time No Known Allergies Allergy Verified 09/09/17 12:10 - Medications Medications: Current Medications Chlordiazepoxide (Librium) 50 mg PO Q8 JADEN Last Admin: 09/19/17 00:25 Dose: 50 mg Chlordiazepoxide (Librium) 25 mg PO Q6 PRN PRN Reason: Symptoms of alcohol withdrawl Diphenhydramine HCl (Benadryl) 25 mg IVP Q6 PRN PRN Reason: Itching / Pruritus Last Admin: 09/19/17 00:25 Dose: 25 mg Famotidine (Pepcid) 20 mg PO DAILY [facility] Furosemide (Lasix) 40 mg PO DAILY [facility] Ceftriaxone Sodium 2 gm/ (Sodium Chloride) 100 mls @ 100 mls/hr IVPB DAILY JADEN PRN Reason: Protocol Last Admin: 09/18/17 15:59 Dose: 100 mls/hr Dextrose/Sodium Chloride (Dextrose 5%/0.45% Ns 1000 Ml) 1,000 mls @ 80 mls/hr IV .[id number] [facility] Stop: 09/19/17 17:45 Last Admin: 09/19/17 00:26 Dose: 80 mls/hr Morphine Sulfate (Morphine) 2 mg IVP Q4 PRN PRN Reason: Pain, moderate (4-7) Last Admin: 09/18/17 21:26 Dose: 2 mg Ondansetron HCl (Zofran Inj) 4 mg IVP Q4 PRN PRN Reason: Nausea/Vomiting Spironolactone (Aldactone) 100 mg PO DAILY [facility] Physical Exam - Constitutional Appears: Non-toxic, No Acute Distress, Chronically Ill - Head Exam Head Exam: ATRAUMATIC, NORMOCEPHALIC - Eye Exam Eye Exam: EOMI, PERRL, Scleral icterus Pupil Exam: PERRL. absent: Miosis, Mydriatic - ENT Exam ENT Exam: Mucous Membranes Moist, Normal Oropharynx - Neck Exam Neck exam: Positive for: Full Rom, Normal Inspection - Respiratory Exam Respiratory Exam: Clear to Auscultation Bilateral. absent: Rales, Rhonchi, Wheezes - Cardiovascular Exam Cardiovascular Exam: RRR, +S1, +S2. absent: Gallop, Rubs - GI/Abdominal Exam GI & Abdominal Exam: Distended, Normal Bowel Sounds, Organomegaly, Soft, Tenderness. absent: Firm, Guarding, Rebound, Rigid - Extremities Exam Extremities exam: Positive for: normal inspection. Negative for: pedal edema - Neurological Exam Neurological exam: Alert, Oriented x3 Additional comments: B/L asterixis present - Psychiatric Exam Psychiatric exam: Normal Affect, Normal Mood - Skin Skin Exam: Dry, Intact, Warm Additional comments: jaundice Results - Vital Signs Recent Vital Signs: Last Vital Signs Temp 98.5 F 09/19/17 05:28 Pulse 83 09/19/17 05:28 Resp 18 09/19/17 05:28 BP 116/56 L 09/19/17 05:28 Pulse Ox 97 09/19/17 05:28 - Labs Result Diagrams: 09/18/17 10:54 09/18/17 10:54 Labs: Laboratory Results - last 24 hr 09/18/17 09/18/17 09/18/17 09:32 10:54 10:54 WBC 8.0 RBC 3.17 L Hgb 11.1 L Hct 33.1 L MCV 104.3 H D MCH 35.0 H MCHC 33.6 RDW 19.7 H Plt Count 90 L MPV 10.2 Neut % (Auto) 68.8 Lymph % (Auto) 10.1 L Smyth % (Auto) 17.9 H Eos % (Auto) 2.0 Baso % (Auto) 1.2 Neut # 5.5 Lymph # 0.8 L Smyth # 1.4 H Eos # 0.2 Baso # 0.1 PT INR APTT pO2 68 H VBG pH 7.39 VBG pCO2 32 L VBG HCO3 21.4 VBG Total CO2 20.4 L VBG O2 Sat (Calc) 96.3 H VBG Base Excess -4.2 L VBG Potassium 4.4 Sodium 130.0 L 133 Chloride 102.0 105 Glucose 139 H Lactate 3.0 H FiO2 21.0 Potassium 4.3 Carbon Dioxide 18 L Anion Gap 14 BUN 17 Creatinine 1.3 Est GFR ( Amer) > 60 Est GFR (Non-Af Amer) > 60 Random Glucose 127 H Calcium 7.8 L Phosphorus Magnesium Total Bilirubin 17.5 H GGT AST 136 H ALT 57 Alkaline Phosphatase 355 H Total Protein 6.3 Albumin 2.1 L Globulin 4.3 H Albumin/Globulin Ratio 0.5 L Lipase 486 H Procalcitonin Venous Blood Potassium 4.4 09/18/17 09/18/17 09/18/17 10:54 13:44 14:22 WBC RBC Hgb Hct MCV MCH MCHC RDW Plt Count MPV Neut % (Auto) Lymph % (Auto) Smyth % (Auto) Eos % (Auto) Baso % (Auto) Neut # Lymph # Smyth # Eos # Baso # PT 14.4 H INR 1.3 H APTT 34.3 pO2 44 VBG pH 7.41 VBG pCO2 34 L VBG HCO3 22.6 VBG Total CO2 22.6 VBG O2 Sat (Calc) 84.1 H VBG Base Excess -2.4 L VBG Potassium 4.0 Sodium 130.0 L Chloride 102.0 Glucose 84 Lactate 1.7 FiO2 21.0 Potassium Carbon Dioxide Anion Gap BUN Creatinine Est GFR ( Amer) Est GFR (Non-Af Amer) Random Glucose Calcium Phosphorus Magnesium Total Bilirubin GGT AST ALT Alkaline Phosphatase Total Protein Albumin Globulin Albumin/Globulin Ratio Lipase Procalcitonin 0.83 H Venous Blood Potassium 4.0 09/18/17 14:51 WBC RBC Hgb Hct MCV MCH MCHC RDW Plt Count MPV Neut % (Auto) Lymph % (Auto) Smyth % (Auto) Eos % (Auto) Baso % (Auto) Neut # Lymph # Smyth # Eos # Baso # PT INR APTT pO2 VBG pH VBG pCO2 VBG HCO3 VBG Total CO2 VBG O2 Sat (Calc) VBG Base Excess VBG Potassium Sodium Chloride Glucose Lactate FiO2 Potassium Carbon Dioxide Anion Gap BUN Creatinine Est GFR ( Amer) Est GFR (Non-Af Amer) Random Glucose Calcium Phosphorus 4.2 Magnesium 2.1 Total Bilirubin GGT 152 H AST ALT Alkaline Phosphatase Total Protein Albumin Globulin Albumin/Globulin Ratio Lipase Procalcitonin Venous Blood Potassium Assessment & Plan - Assessment and Plan (Free Text) Assessment: 42 year old male with history of Hepatitis C (diagnosed 2006, Genotype 2B, 2016 viral load [id number], no prior treatment) and active alcohol abuse with recurrent admissions for alcohol withdrawal complicated by decompensated cirrhosis 2/2 ascites (no SBP on paracentesis (400cc) -07/2017) presenting with abdominal pain. Active treatment of decompensated cirrhosis 2/2 hepatic encephalopathy complicated by alcoholic hepatitis and alcohol withdrawal. Prior EGD 01/2017 showed no varices, H pylori negative erosive gastropathy, and moderate portal hypertensive gastropathy. C Chronic finding of dilated gallbladder hydrops deemed seconded to mild ascites with no associated gallstones, biliary dilatations, and normal HIDA scan . Surgical evaluation deemed to be a poor candidate due to cirrhosis and ongoing alcohol abuse. Plan: >MELD 25, DF 38.7 >U/S- minimal ascites, no gallstones or biliary dilatation >ordered HIDA scan given worsened jaundice to re-evaluate for biliary obstruction >ordered cholestyramine QID >recently left [facility] [place] [facility] AMA 08/2017 >not a good candidate for steroid therapy >not transplant candidate given ongoing alcohol abuse and medication noncompliance >monitor renal function >counselled on alcohol cessation >low suspicion for SBP, stop antibiotics >tolerating liquid diet, advance to low salt diet as tolerated >daily MELD labs >will follow clinical course <Robert Munroe - Last Filed: 09/19/17 11:13> Meds - Medications Medications: Current Medications Chlordiazepoxide (Librium) 50 mg PO Q8 [facility] Last Admin: 09/19/17 08:44 Dose: 50 mg Chlordiazepoxide (Librium) 25 mg PO Q6 PRN PRN Reason: Symptoms of alcohol withdrawl Cholestyramine Resin (Questran) 4 gm PO QID [facility] Diphenhydramine HCl (Benadryl) 25 mg IVP Q6 PRN PRN Reason: Itching / Pruritus Last Admin: 09/19/17 08:45 Dose: 25 mg Famotidine (Pepcid) 20 mg PO DAILY [facility] Last Admin: 09/19/17 08:45 Dose: 20 mg Furosemide (Lasix) 40 mg PO DAILY [facility] Ceftriaxone Sodium 2 gm/ (Sodium Chloride) 100 mls @ 100 mls/hr IVPB DAILY [facility] PRN Reason: Protocol Last Admin: 09/18/17 15:59 Dose: 100 mls/hr Dextrose/Sodium Chloride (Dextrose 5%/0.45% Ns 1000 Ml) 1,000 mls @ 80 mls/hr IV .[id number] [facility] Stop: 09/19/17 17:45 Last Admin: 09/19/17 00:26 Dose: 80 mls/hr Lactulose (Enulose) 20 gm PO BID [facility] Last Admin: 09/19/17 08:44 Dose: 20 gm Morphine Sulfate (Morphine) 2 mg IVP Q4 PRN PRN Reason: Pain, moderate (4-7) Last Admin: 09/18/17 21:26 Dose: 2 mg Ondansetron HCl (Zofran Inj) 4 mg IVP Q4 PRN PRN Reason: Nausea/Vomiting Spironolactone (Aldactone) 100 mg PO DAILY [facility] Results - Vital Signs Recent Vital Signs: Last Vital Signs Temp 98.2 F 09/19/17 08:00 Pulse 81 09/19/17 08:00 Resp 20 09/19/17 08:00 BP 101/57 L 09/19/17 08:00 Pulse Ox 96 09/19/17 08:00 - Labs Result Diagrams: 09/18/17 10:54 09/18/17 10:54 Labs: Laboratory Results - last 24 hr 09/18/17 09/18/17 09/18/17 10:54 10:54 10:54 WBC 8.0 RBC 3.17 L Hgb 11.1 L Hct 33.1 L MCV 104.3 H D MCH 35.0 H MCHC 33.6 RDW 19.7 H Plt Count 90 L MPV 10.2 Neut % (Auto) 68.8 Lymph % (Auto) 10.1 L Smyth % (Auto) 17.9 H Eos % (Auto) 2.0 Baso % (Auto) 1.2 Neut # 5.5 Lymph # 0.8 L Smyth # 1.4 H Eos # 0.2 Baso # 0.1 PT 14.4 H INR 1.3 H APTT 34.3 pO2 VBG pH VBG pCO2 VBG HCO3 VBG Total CO2 VBG O2 Sat (Calc) VBG Base Excess VBG Potassium Glucose Lactate FiO2 Sodium 133 Potassium 4.3 Chloride 105 Carbon Dioxide 18 L Anion Gap 14 BUN 17 Creatinine 1.3 Est GFR ( Amer) > 60 Est GFR (Non-Af Amer) > 60 Random Glucose 127 H Calcium 7.8 L Phosphorus Magnesium Total Bilirubin 17.5 H GGT AST 136 H ALT 57 Alkaline Phosphatase 355 H Total Protein 6.3 Albumin 2.1 L Globulin 4.3 H Albumin/Globulin Ratio 0.5 L Lipase 486 H Procalcitonin Venous Blood Potassium 09/18/17 09/18/17 09/18/17 13:44 14:22 14:51 WBC RBC Hgb Hct MCV MCH MCHC RDW Plt Count MPV Neut % (Auto) Lymph % (Auto) Smyth % (Auto) Eos % (Auto) Baso % (Auto) Neut # Lymph # Smyth # Eos # Baso # PT INR APTT pO2 44 VBG pH 7.41 VBG pCO2 34 L VBG HCO3 22.6 VBG Total CO2 22.6 VBG O2 Sat (Calc) 84.1 H VBG Base Excess -2.4 L VBG Potassium 4.0 Glucose 84 Lactate 1.7 FiO2 21.0 Sodium 130.0 L Potassium Chloride 102.0 Carbon Dioxide Anion Gap BUN Creatinine Est GFR ( Amer) Est GFR (Non-Af Amer) Random Glucose Calcium Phosphorus 4.2 Magnesium 2.1 Total Bilirubin GGT 152 H AST ALT Alkaline Phosphatase Total Protein Albumin Globulin Albumin/Globulin Ratio Lipase Procalcitonin 0.83 H Venous Blood Potassium 4.0 09/19/17 08:41 WBC RBC Hgb Hct MCV MCH MCHC RDW Plt Count MPV Neut % (Auto) Lymph % (Auto) Smyth % (Auto) Eos % (Auto) Baso % (Auto) Neut # Lymph # Smyth # Eos # Baso # PT 14.9 H INR 1.3 H APTT pO2 VBG pH VBG pCO2 VBG HCO3 VBG Total CO2 VBG O2 Sat (Calc) VBG Base Excess VBG Potassium Glucose Lactate FiO2 Sodium Potassium Chloride Carbon Dioxide Anion Gap BUN Creatinine Est GFR ( Amer) Est GFR (Non-Af Amer) Random Glucose Calcium Phosphorus Magnesium Total Bilirubin GGT AST ALT Alkaline Phosphatase Total Protein Albumin Globulin Albumin/Globulin Ratio Lipase Procalcitonin Venous Blood Potassium Attending/Attestation - Attestation I have personally seen and examined this patient.: Yes I have fully participated in the care of the patient.: Yes I have reviewed all pertinent clinical information: Yes Notes (Text): 09/19/17 11:09 42 year old male with h/o HCV (treatment naive), ongoing alcohol abuse, alcholic cirrhosis/hepatitis, non-compliance admitted with worsening jaundice/ pruritis. 1. Alcoholic cirrhosis 2. Alcoholic hepatitis 3. Pruritis Plan: -continues to worsen due to ongoing alcohol abuse -recommend complete cessation/abstinence -he will likely go into withdrawal and need therapy -steroids would be indicated,but he needs to be compliant -check hida scan to compare to one from two months ago considering enlarged GB and worsening jaundice -start cholestyramine for pruritis -no drainable ascites -ok to start lactulose for possible early encephalopathy -no apparent indication for abx at this time
[2017-09-19] MEDS: cefTRIAXone 2 GM in Sodium Chloride 0.9% 100 ML IVPB SCH (10:00)
[2017-09-19] MEDS: Cholestyramine 4 gm/Pkt UD PO SCH ×4 (11:30→22:19)
[2017-09-19 12:15] LABS: MEAN CELL VOLUME 104.4 fl (80.0-94.0); MEAN CORPUSCULAR HEMOGLOBIN 35.3 pg (27.0-31.0); MEAN CORPUSCULAR HGB CONC 33.8 g/dL (33.0-37.0); RED CELL DISTRIBUTION WIDTH 19.3 % (11.5-14.5); WHITE BLOOD COUNT 7.5 K/uL (4.8-10.8)
[2017-09-19 12:25] LABS: ALB/GLOB RATIO 0.5 (1.0-2.1); ALKALINE PHOSPHATASE 301 U/L (38-126); ALT/SGPT 54 U/L (21-72); AST/SGOT 130 U/L (17-59); BILIRUBIN,TOTAL 20.3 mg/dl (0.2-1.3); BLOOD UREA NITROGEN 21 mg/dl (9-20); CALCIUM 7.8 mg/dL (8.4-10.2); CARBON DIOXIDE 23 mmol/L (22-30); CHLORIDE 105 mmol/L (98-107); GFR AFRICAN-AMERICAN > 60; GLUCOSE,RANDOM 95 mg/dL (75-110); POTASSIUM 4.2 MMOL/L (3.6-5.0); SODIUM 132 mmol/l (132-148); TOTAL PROTEIN 5.9 G/DL (6.3-8.2)
[2017-09-19] MEDS ORDERED: Cholestyramine 4 gm/Pkt UD PO SCH (13:00)
--- NOTE | 2017-09-19 13:52 | CP.PCM.PN ---
Subjective - Date & Time of Evaluation Date of Evaluation: 09/19/17 Time of Evaluation: 08:30 - Subjective Subjective: 42 y/o M with chronic liver cirrhosis 2/2 ETOH and Hep C, admitted for abdominal pain and exacerbation of ETOH hepatitis. Seen and examined at bedside. Awake and alert, appears icteric. Complains of continuing pruritis, but abd pain has subsided. Denies f/c/n/v/cp/ abd pain/focal weakness, vision changes. Objective - Vital Signs/Intake and Output Vital Signs (last 24 hours): Temp Pulse Resp BP Pulse Ox 98.3 F 83 18 112/60 98 09/19/17 12:00 09/19/17 12:00 09/19/17 12:00 09/19/17 12:00 09/19/17 12:00 - Medications Medications: Current Medications Chlordiazepoxide (Librium) 50 mg PO Q8 [facility] Last Admin: 09/19/17 08:44 Dose: 50 mg Chlordiazepoxide (Librium) 25 mg PO Q6 PRN PRN Reason: Symptoms of alcohol withdrawl Cholestyramine Resin (Questran) 4 gm PO QID [facility] Last Admin: 09/19/17 11:30 Dose: 4 gm Famotidine (Pepcid) 20 mg PO DAILY [facility] Last Admin: 09/19/17 08:45 Dose: 20 mg Furosemide (Lasix) 40 mg PO DAILY [facility] Dextrose/Sodium Chloride (Dextrose 5%/0.45% Ns 1000 Ml) 1,000 mls @ 80 mls/hr IV .[id number] [facility] Stop: 09/19/17 17:45 Last Admin: 09/19/17 11:28 Dose: 80 mls/hr Lactulose (Enulose) 20 gm PO BID [facility] Last Admin: 09/19/17 08:44 Dose: 20 gm Morphine Sulfate (Morphine) 2 mg IVP Q4 PRN PRN Reason: Pain, moderate (4-7) Last Admin: 09/18/17 21:26 Dose: 2 mg Ondansetron HCl (Zofran Inj) 4 mg IVP Q4 PRN PRN Reason: Nausea/Vomiting Spironolactone (Aldactone) 100 mg PO DAILY [facility] - Labs Labs: 09/19/17 12:09 09/19/17 12:09 PT 14.9 Seconds (9.8-13.1) H 09/19/17 08:41 INR 1.3 (0.9-1.2) H 09/19/17 08:41 APTT 34.3 Seconds (25.6-37.1) 09/18/17 10:54 - Constitutional Appears: Chronically Ill, Other (jaundiced) - Head Exam Head Exam: ATRAUMATIC - Eye Exam Pupil Exam: PERRL - ENT Exam ENT Exam: Mucous Membranes Moist - Neck Exam Neck Exam: Full ROM - Respiratory Exam Respiratory Exam: Clear to Ausculation Bilateral - Cardiovascular Exam Cardiovascular Exam: +S1, +S2 - GI/Abdominal Exam GI & Abdominal Exam: Soft, Normal Bowel Sounds. absent: Tenderness - Neurological Exam Neurological Exam: Alert, Awake, Oriented x3 - Psychiatric Exam Psychiatric exam: Normal Affect, Normal Mood - Skin Skin Exam: Dry, Normal Color, Warm Assessment and Plan - Assessment and Plan (Free Text) Plan: 42 YO M w/ PMH of Alcoholic liver cirrhosis, Hep C, admitted for exacerbation of comorbidities. 1) Abdominal pain 2/2 Alcoholic hepatitis - NPO - Pain controlled with meds - previously noted to have chloleycystitis but was not a candidate for Surgery because of the severity of liver failure. - Total bilirubin 17 - MELD score: 25.7, Child Yeh Class C w/ a 76% mortality - Abd CT: Mild ascitic throughout abdomen and pelvis. Trace left pleural effusion. Cirrhotic liver. - Abd U/S: Liver measures : 19.2 cm. Gallbladder appears markedly distended without cholelithiasis . Acalculous cholecystitis is not favored but is not completely ruled out - Lactate intially 3.0 on repeat is 1.7 - Procalcitonin: 0.83 - Lipase: 486 - GI consulted - low suspicion for SBP, DC Ceftriaxone - F/U with blood cultures and urine cultures - HIDA in AM to r/o biliary obstruction 2) Alcoholic Liver Cirrhosis - MELD score: 25.7, Child Yeh Class C w/ a 76% mortality - C/W Lasix and Spironolactone was diet is advanced - GI consult appreciated 3) ETOH abuse -bannana bag x 2 given - Librium 50mg PRN for withdrawl symptoms 4) Chronic Hep C - Not currently on any medications 5) DVT prophylaxis -SCD only, unable to give lovenox , platelets are 90
[2017-09-20 05:25] LABS: HEMATOCRIT 29.5 % (35.0-51.0); MEAN CELL VOLUME 104.9 fl (80.0-94.0); MEAN CORPUSCULAR HEMOGLOBIN 35.3 pg (27.0-31.0); MEAN CORPUSCULAR HGB CONC 33.6 g/dL (33.0-37.0); RED CELL DISTRIBUTION WIDTH 19.1 % (11.5-14.5); WHITE BLOOD COUNT 7.4 K/uL (4.8-10.8)
[2017-09-20 05:34] LABS: ALKALINE PHOSPHATASE 275 U/L (38-126); ALT/SGPT 52 U/L (21-72); AST/SGOT 120 U/L (17-59); BILIRUBIN,TOTAL 19.1 mg/dl (0.2-1.3); BLOOD UREA NITROGEN 24 mg/dl (9-20); CALCIUM 7.4 mg/dL (8.4-10.2); CARBON DIOXIDE 23 mmol/L (22-30); CHLORIDE 107 mmol/L (98-107); GFR AFRICAN-AMERICAN > 60; GLUCOSE,RANDOM 87 mg/dL (75-110); POTASSIUM 4.2 MMOL/L (3.6-5.0); SODIUM 134 mmol/l (132-148)
[2017-09-20 05:39] LABS: ALB/GLOB RATIO 0.5 (1.0-2.1); TOTAL PROTEIN 5.5 G/DL (6.3-8.2)
--- NOTE | 2017-09-20 06:47 | CP.PCM.PN ---
<Blanka Andino - Last Filed: 09/20/17 15:56> Subjective - Date & Time of Evaluation Date of Evaluation: 09/20/17 Time of Evaluation: 06:44 - Subjective Subjective: Gastroenterology Fellow/PGY5 Progress Note Patient notes improving abdominal pain.Tolerated diet yesterday. NPO for HIDA scan today. Had four loose stools yesterday. A 12-point review of systems negative except for as above. Objective - Vital Signs/Intake and Output Vital Signs (last 24 hours): Temp Pulse Resp BP Pulse Ox 98.5 F 96 H 18 95/57 L 95 09/20/17 05:12 09/20/17 05:12 09/20/17 05:12 09/20/17 05:12 09/20/17 05:12 Intake and Output: 09/19/17 09/20/17 18:59 06:59 Intake Total 1140 Balance 1140 - Medications Medications: Current Medications Chlordiazepoxide (Librium) 50 mg PO Q8 [facility] Last Admin: 09/20/17 00:13 Dose: 50 mg Chlordiazepoxide (Librium) 25 mg PO Q6 PRN PRN Reason: Symptoms of alcohol withdrawl Cholestyramine Resin (Questran) 4 gm PO QID [facility] Last Admin: 09/19/17 22:19 Dose: 4 gm Famotidine (Pepcid) 20 mg PO DAILY [facility] Last Admin: 09/19/17 08:45 Dose: 20 mg Furosemide (Lasix) 40 mg PO DAILY [facility] Lactulose (Enulose) 20 gm PO BID [facility] Last Admin: 09/19/17 16:13 Dose: 20 gm Morphine Sulfate (Morphine) 2 mg IVP Q4 PRN PRN Reason: Pain, moderate (4-7) Last Admin: 09/20/17 00:18 Dose: 2 mg Ondansetron HCl (Zofran Inj) 4 mg IVP Q4 PRN PRN Reason: Nausea/Vomiting Spironolactone (Aldactone) 100 mg PO DAILY [facility] - Labs Labs: 09/20/17 04:40 09/20/17 04:40 PT 14.9 Seconds (9.8-13.1) H 09/19/17 08:41 INR 1.3 (0.9-1.2) H 09/19/17 08:41 APTT 34.3 Seconds (25.6-37.1) 09/18/17 10:54 - Constitutional Appears: Non-toxic, No Acute Distress - Head Exam Head Exam: ATRAUMATIC, NORMOCEPHALIC - Eye Exam Eye Exam: EOMI, PERRL, Scleral icterus Pupil Exam: PERRL. absent: Miosis, Mydriatic - ENT Exam ENT Exam: Mucous Membranes Moist, Normal Oropharynx - Neck Exam Neck Exam: Full ROM, Normal Inspection - Respiratory Exam Respiratory Exam: Clear to Ausculation Bilateral. absent: Rales, Rhonchi, Wheezes - Cardiovascular Exam Cardiovascular Exam: RRR, +S1, +S2. absent: Gallop, Rubs - GI/Abdominal Exam GI & Abdominal Exam: Soft, Tenderness, Normal Bowel Sounds, Organomegaly. absent: Distended, Firm, Guarding, Rigid, Rebound Additional comments: mild mid-abdominal discomfort to palpation - Extremities Exam Extremities Exam: Normal Inspection. absent: Pedal Edema - Neurological Exam Neurological Exam: Alert, Awake - Psychiatric Exam Psychiatric exam: Normal Affect, Normal Mood - Skin Skin Exam: Dry, Intact, Normal Color, Warm Assessment and Plan - Assessment and Plan (Free Text) Assessment: 42 year old male with history of Hepatitis C (diagnosed 2006, Genotype 2B, 2016 viral load 358,436, no prior treatment) and active alcohol abuse with recurrent admissions for alcohol withdrawal complicated by decompensated cirrhosis 2/2 ascites (no SBP on paracentesis (400cc) -07/2017) presenting with abdominal pain. Active treatment of decompensated cirrhosis 2/2 hepatic encephalopathy complicated by alcoholic hepatitis and alcohol withdrawal. Prior EGD 01/2017 showed no varices, H pylori negative erosive gastropathy, and moderate portal hypertensive gastropathy. No prior colonoscopy. Plan: >MELD 25, DF 38.7 >worsening renal function- hold diuretics >ordered Albumin 50g >minimal ascites on U/S >NPO- HIDA scan today to re-evaluate for biliary obstruction given worsening jaundice -likely 2/2 alcoholic hepatitis and ongoing alcohol abuse >surgery deemed poor surgical candidate 07/2017 >decreased Lactulose to once daily, goal 2-3 BMs/day >medicine team managing alcohol withdrawal >continue cholestyramine QID for pruritis >poor candidate for steroid therapy given noncompliance >not transplant candidate given ongoing alcohol abuse and medication noncompliance >counselled on alcohol cessation >low salt diet as tolerated >daily MELD labs >will follow clinical course <Kerry Fajardo MD - Last Filed: 09/20/17 17:37> Objective - Vital Signs/Intake and Output Vital Signs (last 24 hours): Temp Pulse Resp BP Pulse Ox 98.2 F 84 18 111/69 99 09/20/17 16:39 09/20/17 16:39 09/20/17 16:39 09/20/17 16:39 09/20/17 16:39 - Medications Medications: Current Medications Chlordiazepoxide (Librium) 50 mg PO Q8 [facility] Last Admin: 09/20/17 17:27 Dose: 50 mg Chlordiazepoxide (Librium) 25 mg PO Q6 PRN PRN Reason: Symptoms of alcohol withdrawl Cholestyramine Resin (Questran) 4 gm PO QID [facility] Last Admin: 09/20/17 17:28 Dose: 4 gm Famotidine (Pepcid) 20 mg PO DAILY [facility] Last Admin: 09/20/17 09:29 Dose: 20 mg Furosemide (Lasix) 40 mg PO DAILY [facility] Sodium Chloride (Sodium Chloride 0.9%) 1,000 mls @ 125 mls/hr IV .Q8H [facility] Stop: 09/21/17 10:03 Last Admin: 09/20/17 14:03 Dose: 125 mls/hr Lactulose (Enulose) 20 gm PO DAILY [facility] Last Admin: 09/20/17 09:29 Dose: 20 gm Morphine Sulfate (Morphine) 2 mg IVP Q4 PRN PRN Reason: Pain, moderate (4-7) Last Admin: 09/20/17 17:26 Dose: 2 mg Ondansetron HCl (Zofran Inj) 4 mg IVP Q4 PRN PRN Reason: Nausea/Vomiting Spironolactone (Aldactone) 100 mg PO DAILY [facility] - Labs Labs: 09/20/17 04:40 09/20/17 04:40 PT 15.7 Seconds (9.8-13.1) H 09/20/17 06:40 INR 1.4 (0.9-1.2) H 09/20/17 06:40 APTT 34.3 Seconds (25.6-37.1) 09/18/17 10:54 Attending/Attestation - Attestation I have personally seen and examined this patient.: Yes I have fully participated in the care of the patient.: Yes I have reviewed all pertinent clinical information, including history, physical exam and plan: Yes Notes (Text): 09/20/17 17:35 Patient seen earlier today. This is a 42 year old male with h/o HCV (treatment naive), ongoing alcohol abuse, alcholic cirrhosis/hepatitis, non-compliance admitted with worsening jaundice/pruritis. He has increasing transminases with AH and is treatment naive for HCV. He is still abusing alcohol. HIDA negative for cholecystitis. Will hold of on steroids due to non compliance. Continue cholestyramine for pruritis. Hold diuretics for hypotension.
[2017-09-20] MEDS: Albumin Human 25% (12.5 gm/50 ml) IV SCH ×2 (09:29→09:30)
[2017-09-20] MEDS: Cholestyramine 4 gm/Pkt UD PO SCH ×4 (09:29→22:02)
[2017-09-20] MEDS ORDERED: SODIUM CHLORIDE 0.9% IVPB ONE (09:54)
[2017-09-20] MEDS ORDERED: SINCALIDE IVPB ONE (09:54)
--- NOTE | 2017-09-20 09:54 | CP.PCM.PN ---
Subjective - Date & Time of Evaluation Date of Evaluation: 09/20/17 Time of Evaluation: 09:52 - Subjective Subjective: 42 YO M is seen at bedside, he has been NPO overnight, and feels thirsty. IS requesting ice chips . Abdominal pain is improving. HIDA will be preformed today. Objective - Vital Signs/Intake and Output Vital Signs (last 24 hours): Temp Pulse Resp BP Pulse Ox 98.3 F 92 H 20 97/46 L 100 09/20/17 08:45 09/20/17 08:45 09/20/17 08:45 09/20/17 08:45 09/20/17 08:45 - Medications Medications: Current Medications Albumin Human (Albumin Human 25% (12.5 Gm/50 Ml)) 12.5 gm IV Q1 [facility] Stop: 09/20/17 10:01 Last Admin: 09/20/17 09:30 Dose: 12.5 gm Chlordiazepoxide (Librium) 50 mg PO Q8 [facility] Last Admin: 09/20/17 09:35 Dose: 50 mg Chlordiazepoxide (Librium) 25 mg PO Q6 PRN PRN Reason: Symptoms of alcohol withdrawl Cholestyramine Resin (Questran) 4 gm PO QID [facility] Last Admin: 09/20/17 09:29 Dose: 4 gm Famotidine (Pepcid) 20 mg PO DAILY [facility] Last Admin: 09/20/17 09:29 Dose: 20 mg Furosemide (Lasix) 40 mg PO DAILY [facility] Lactulose (Enulose) 20 gm PO DAILY [facility] Last Admin: 09/20/17 09:29 Dose: 20 gm Morphine Sulfate (Morphine) 2 mg IVP Q4 PRN PRN Reason: Pain, moderate (4-7) Last Admin: 09/20/17 09:45 Dose: 2 mg Ondansetron HCl (Zofran Inj) 4 mg IVP Q4 PRN PRN Reason: Nausea/Vomiting Spironolactone (Aldactone) 100 mg PO DAILY [facility] - Labs Labs: 09/20/17 04:40 09/20/17 04:40 PT 15.7 Seconds (9.8-13.1) H 09/20/17 06:40 INR 1.4 (0.9-1.2) H 09/20/17 06:40 APTT 34.3 Seconds (25.6-37.1) 09/18/17 10:54 - Constitutional Appears: No Acute Distress - Head Exam Head Exam: ATRAUMATIC - Eye Exam Eye Exam: Scleral icterus - Respiratory Exam Respiratory Exam: Clear to Ausculation Bilateral, NORMAL BREATHING PATTERN. absent: Rhonchi, Wheezes - Cardiovascular Exam Cardiovascular Exam: REGULAR RHYTHM, +S1, +S2 - GI/Abdominal Exam GI & Abdominal Exam: Distended, Soft. absent: Tenderness Additional comments: Mid abdominal discomfort - Neurological Exam Neurological Exam: Alert, Awake, Oriented x3 - Skin Skin Exam: Normal Color, Warm Assessment and Plan - Assessment and Plan (Free Text) Assessment: 42 YO M w/ PMH of Alcoholic liver cirrhosis, Hep C, admitted for exacerbation of comorbidities. 1) Abdominal pain 2/2 Alcoholic hepatitis - NPO - Pain controlled with meds - previously noted to have chloleycystitis but was not a candidate for Surgery because of the severity of liver failure. - Total bilirubin 19.1 - MELD score: 25.7, Child Yeh Class C w/ a 76% mortality - Abd CT: Mild ascitic throughout abdomen and pelvis. Trace left pleural effusion. Cirrhotic liver. - Abd U/S: Liver measures : 19.2 cm. Gallbladder appears markedly distended without cholelithiasis . Acalculous cholecystitis is not favored but is not completely ruled out - Lactate intially 3.0 on repeat is 1.7 - Procalcitonin: increased from .83 to 1.54, However still less then 2. Studies show increased procalcitonin in patients with renal and liver failure can have elevated levs. Patient does not most likely have SBP and no source of infection evident at this time. Will continue to monitor. - Lipase: 486 - GI consulted - Spirnolactone and Lasix held because of hypotension. - F/U with blood cultures and urine cultures - HIDA today to r/o biliary obstruction - 4 doses of albumin will be given today as per GI 2) Alcoholic Liver Cirrhosis - MELD score: 25.7, Child Yeh Class C w/ a 76% mortality - HOLD Lasix and Spironolactone because of hypotension - GI consult appreciated 3) ETOH abuse -bannana bag x 2 given - Librium 50mg PRN for withdrawl symptoms 4) Chronic Hep C - Not currently on any medications 5) DVT prophylaxis -SCD only, unable to give lovenox , platelets are 90
[2017-09-20] MEDS: Sodium Chloride 0.9% 1,000 ML IV SCH ×2 (14:03→19:30)
--- NOTE | 2017-09-20 15:27 | NM ---
PROCEDURE: Nuclear Medicine Hepatobiliary Scan HISTORY: jaundice, dilated gallbladder COMPARISON: August 19, 2017 abdominal ultrasound. September 18, 2017 CT abdomen pelvis. TECHNIQUE: 5.2 mCi of technetium 99m Mebrofenin was administered intravenously. Planar images of the abdomen were obtained at 5 min intervals to 60 mins. Delayed images were also obtained. FINDINGS: LIVER: Heterogeneous uptake in the liver. COMMON BILE DUCT: Does not visualize at 03:00 GALLBLADDER: Does not visualize at 03:00 SMALL BOWEL: Does not visualize at 03:00 IMPRESSION: Nondiagnostic assessment of the biliary system. Diminished accumulation of radionuclide in the liver and failure of adequate excretion biliary system gallbladder likely related to hepatocellular dysfunction perhaps a component of hepatic failure.
[2017-09-21] MEDS: Sodium Chloride 0.9% 1,000 ML IV SCH (03:42)
[2017-09-21 05:26] LABS: HEMATOCRIT 29.8 % (35.0-51.0); MEAN CORPUSCULAR HEMOGLOBIN 35.2 pg (27.0-31.0); MEAN CORPUSCULAR HGB CONC 33.2 g/dL (33.0-37.0); RED CELL DISTRIBUTION WIDTH 19.2 % (11.5-14.5); WHITE BLOOD COUNT 6.5 K/uL (4.8-10.8)
[2017-09-21 05:35] LABS: PARTIAL THROMBOPLASTIN TIME 37.3 Seconds (25.6-37.1)
[2017-09-21 05:45] LABS: ALKALINE PHOSPHATASE 257 U/L (38-126); ALT/SGPT 50 U/L (21-72); AST/SGOT 108 U/L (17-59); BILIRUBIN,TOTAL 20.5 mg/dl (0.2-1.3); BLOOD UREA NITROGEN 26 mg/dl (9-20); CALCIUM 7.8 mg/dL (8.4-10.2); CARBON DIOXIDE 20 mmol/L (22-30); CHLORIDE 108 mmol/L (98-107); GFR AFRICAN-AMERICAN > 60; GLUCOSE,RANDOM 83 mg/dL (75-110); POTASSIUM 4.2 MMOL/L (3.6-5.0); SODIUM 134 mmol/l (132-148)
[2017-09-21 05:49] LABS: ALB/GLOB RATIO 0.5 (1.0-2.1); TOTAL PROTEIN 5.9 G/DL (6.3-8.2)
--- NOTE | 2017-09-21 07:38 | CP.PCM.PN ---
<SinaBlanka - Last Filed: 09/21/17 12:37> Subjective - Date & Time of Evaluation Date of Evaluation: 09/21/17 Time of Evaluation: 07:36 - Subjective Subjective: Gastroenterology Fellow/PGY5 Progress Note Patient notes abdominal soreness. Tolerating diet. Two bowel movements overnight. A 12-point review of systems negative except for as above. Objective - Vital Signs/Intake and Output Vital Signs (last 24 hours): Temp Pulse Resp BP Pulse Ox 98 F 77 18 112/62 100 09/21/17 05:27 09/21/17 05:27 09/21/17 05:27 09/21/17 05:27 09/21/17 05:27 - Medications Medications: Current Medications Chlordiazepoxide (Librium) 50 mg PO Q8 [facility] Last Admin: 09/21/17 00:47 Dose: 50 mg Chlordiazepoxide (Librium) 25 mg PO Q6 PRN PRN Reason: Symptoms of alcohol withdrawl Cholestyramine Resin (Questran) 4 gm PO QID [facility] Last Admin: 09/20/17 22:02 Dose: 4 gm Famotidine (Pepcid) 20 mg PO DAILY [facility] Last Admin: 09/20/17 09:29 Dose: 20 mg Furosemide (Lasix) 40 mg PO DAILY [facility] Sodium Chloride (Sodium Chloride 0.9%) 1,000 mls @ 125 mls/hr IV .Q8H [facility] Stop: 09/21/17 10:03 Last Admin: 09/21/17 03:42 Dose: 125 mls/hr Lactulose (Enulose) 20 gm PO DAILY [facility] Last Admin: 09/20/17 09:29 Dose: 20 gm Morphine Sulfate (Morphine) 2 mg IVP Q4 PRN PRN Reason: Pain, moderate (4-7) Last Admin: 09/21/17 03:37 Dose: 2 mg Ondansetron HCl (Zofran Inj) 4 mg IVP Q4 PRN PRN Reason: Nausea/Vomiting Spironolactone (Aldactone) 100 mg PO DAILY [facility] - Labs Labs: 09/21/17 04:50 09/21/17 04:50 PT 16.0 Seconds (9.8-13.1) H 09/21/17 04:50 INR 1.4 (0.9-1.2) H 09/21/17 04:50 APTT 37.3 Seconds (25.6-37.1) H 09/21/17 04:50 - Constitutional Appears: Non-toxic, No Acute Distress - Head Exam Head Exam: ATRAUMATIC, NORMOCEPHALIC - Eye Exam Eye Exam: EOMI, PERRL, Scleral icterus Pupil Exam: PERRL. absent: Miosis, Mydriatic - ENT Exam ENT Exam: Mucous Membranes Moist, Normal Oropharynx - Neck Exam Neck Exam: Full ROM, Normal Inspection - Respiratory Exam Respiratory Exam: Clear to Ausculation Bilateral. absent: Rales, Rhonchi, Wheezes - GI/Abdominal Exam GI & Abdominal Exam: Soft, Tenderness, Normal Bowel Sounds. absent: Distended, Firm, Guarding, Rigid, Organomegaly, Rebound Additional comments: mid abdominal tenderness to palpation - Extremities Exam Extremities Exam: Normal Inspection. absent: Pedal Edema - Neurological Exam Neurological Exam: Alert, Awake - Psychiatric Exam Psychiatric exam: Normal Affect, Normal Mood - Skin Skin Exam: Dry, Intact, Warm Additional comments: jaundice Assessment and Plan - Assessment and Plan (Free Text) Assessment: 42 year old male with history of Hepatitis C (diagnosed 2006, Genotype 2B, 2016 viral load [id number], treatment naive) and active alcohol abuse with recurrent admissions for alcohol withdrawal complicated by decompensated cirrhosis 2/2 ascites (no SBP on paracentesis (400cc) -07/2017) presenting with abdominal pain. Active treatment of decompensated cirrhosis 2/2 hepatic encephalopathy complicated by alcoholic hepatitis and alcohol withdrawal. Prior EGD 01/2017 showed no varices, H pylori negative erosive gastropathy, and moderate portal hypertensive gastropathy. No prior colonoscopy. Plan: >will contact [facility] for tertiary evaluation and documentation given severe alcoholic hepatitis >MELD 25, DF 38.7 >repeat Albumin 50g >HIDA scan- 2/2 acute on chronic liver disease - reviewed with advanced endoscopist, no biliary intervention needed >continue Lactulose daily, goal 2-3 BMs/day >continue cholestyramine QID for pruritis >poor candidate for steroid therapy given noncompliance >not transplant candidate given ongoing alcohol abuse and medication noncompliance >counselled on alcohol cessation >low salt diet as tolerated >daily MELD labs >will follow clinical course <Kerry Fajardo MD - Last Filed: 09/21/17 13:11> Objective - Vital Signs/Intake and Output Vital Signs (last 24 hours): Temp Pulse Resp BP Pulse Ox 98 F 8 L 18 121/71 99 09/21/17 12:08 09/21/17 12:08 09/21/17 12:08 09/21/17 12:08 09/21/17 12:08 - Medications Medications: Current Medications Chlordiazepoxide (Librium) 25 mg PO Q6 PRN PRN Reason: Symptoms of alcohol withdrawl Chlordiazepoxide (Librium) 50 mg PO Q8 [facility] Cholestyramine Resin (Questran) 4 gm PO QID [facility] Famotidine (Pepcid) 20 mg PO DAILY [facility] Furosemide (Lasix) 40 mg PO DAILY [facility] Sincalide 0.12 mcg/ Sodium (Chloride) 100 mls @ 100 mls/hr IVPB ONCE ONE Stop: 09/21/17 12:56 Lactic Acid (Lac-Hydrin 12% Lotion (225 G)) 1 applic TOP TID [facility] Lactulose (Enulose) 20 gm PO DAILY [facility] Morphine Sulfate (Morphine) 2 mg IVP Q4 PRN PRN Reason: Pain, moderate (4-7) Ondansetron HCl (Zofran Inj) 4 mg IVP Q4 PRN PRN Reason: Nausea/Vomiting Sincalide (Kinevac) 2 mcg IV ONCE ONE Stop: 09/21/17 11:58 Spironolactone (Aldactone) 100 mg PO DAILY [facility] - Labs Labs: 09/21/17 04:50 09/21/17 04:50 PT 16.0 Seconds (9.8-13.1) H 09/21/17 04:50 INR 1.4 (0.9-1.2) H 09/21/17 04:50 APTT 37.3 Seconds (25.6-37.1) H 09/21/17 04:50 Attending/Attestation - Attestation I have personally seen and examined this patient.: Yes I have fully participated in the care of the patient.: Yes I have reviewed all pertinent clinical information, including history, physical exam and plan: Yes Notes (Text): 09/21/17 13:08 Patient seen earlier today. This is a 42 year old male with h/o HCV (treatment naive), ongoing alcohol abuse, alcholic cirrhosis/hepatitis, non-compliance admitted with worsening jaundice/pruritis. He has increasing transminases with AH and is treatment naive for HCV. He is still abusing alcohol. HIDA negative for cholecystitis. Will hold of on steroids due to non compliance and on going alcohol use. He lives with a friend who is alcoholic. Will call [facility] today to see if patient is eligible for [facility] trail. Continue cholestyramine for pruritis. Hold diuretics for hypotension. He is oriented to time and place. He does not have any fluid around the GB and no cholelithiasis. His Tb is driven due to his liver disease. Will follow [facility] recommendations. Poor prognosis with MELD score of 25. Alcoholic cirrhosis Alcoholic Hepatitis
--- NOTE | 2017-09-21 08:54 | CP.PCM.PN ---
Subjective - Date & Time of Evaluation Date of Evaluation: 09/21/17 Time of Evaluation: 07:30 - Subjective Subjective: 42 YO M was seen at bedside. Appeared disappointed, he states that he was just told that he may not be a candidate for a liver transplant. Patient has been told about it his poor progniosis, because of his chronic alcohol abuse in the past. - Abdominal pain is much improved today, has been tolerating PO intake. - Patient had 2 bowl movements overnight Objective - Vital Signs/Intake and Output Vital Signs (last 24 hours): Temp Pulse Resp BP Pulse Ox 98.5 F 80 18 106/57 L 98 09/21/17 07:55 09/21/17 07:55 09/21/17 07:55 09/21/17 07:55 09/21/17 07:55 - Medications Medications: Current Medications Albumin Human (Albumin Human 25% (12.5 Gm/50 Ml)) 12.5 gm IV Q1 [facility] Stop: 09/21/17 11:01 Chlordiazepoxide (Librium) 50 mg PO Q8 [facility] Last Admin: 09/21/17 00:47 Dose: 50 mg Chlordiazepoxide (Librium) 25 mg PO Q6 PRN PRN Reason: Symptoms of alcohol withdrawl Cholestyramine Resin (Questran) 4 gm PO QID [facility] Last Admin: 09/20/17 22:02 Dose: 4 gm Famotidine (Pepcid) 20 mg PO DAILY [facility] Last Admin: 09/20/17 09:29 Dose: 20 mg Furosemide (Lasix) 40 mg PO DAILY [facility] Sodium Chloride (Sodium Chloride 0.9%) 1,000 mls @ 125 mls/hr IV .Q8H [facility] Stop: 09/21/17 10:03 Last Admin: 09/21/17 03:42 Dose: 125 mls/hr Lactulose (Enulose) 20 gm PO DAILY [facility] Last Admin: 09/20/17 09:29 Dose: 20 gm Morphine Sulfate (Morphine) 2 mg IVP Q4 PRN PRN Reason: Pain, moderate (4-7) Last Admin: 09/21/17 03:37 Dose: 2 mg Ondansetron HCl (Zofran Inj) 4 mg IVP Q4 PRN PRN Reason: Nausea/Vomiting Spironolactone (Aldactone) 100 mg PO DAILY [facility] - Labs Labs: 09/21/17 04:50 12/19/17 04:50 PT 16.0 Seconds (9.8-13.1) H 09/21/17 04:50 INR 1.4 (0.9-1.2) H 09/21/17 04:50 APTT 37.3 Seconds (25.6-37.1) H 09/21/17 04:50 - Constitutional Appears: No Acute Distress - Head Exam Head Exam: NORMAL INSPECTION - Eye Exam Eye Exam: Scleral icterus - Respiratory Exam Respiratory Exam: Clear to Ausculation Bilateral. absent: Rhonchi, Wheezes - Cardiovascular Exam Cardiovascular Exam: REGULAR RHYTHM, +S1, +S2 - GI/Abdominal Exam GI & Abdominal Exam: Distended, Soft, Tenderness Additional comments: slight epigastric tenderness - Extremities Exam Extremities Exam: Full ROM, Normal Inspection. absent: Calf Tenderness - Neurological Exam Neurological Exam: Alert, Awake, Oriented x3 - Skin Additional comments: jaundice Assessment and Plan - Assessment and Plan (Free Text) Assessment: 1) Abdominal pain 2/2 Alcoholic hepatitis - Tolerating regular diet - Pain controlled with meds - previously noted to have chloleycystitis but was not a candidate for Surgery because of the severity of liver failure. - Total bilirubin 19.1. - MELD score: 25, Child Yeh Class C w/ a 76% mortality - Abd CT: Mild ascetic throughout abdomen and pelvis. Trace left pleural effusion. Cirrhotic liver. - Abd U/S: Liver measures : 19.2 cm. Gallbladder appears markedly distended without cholelithiasis . Acalculous cholecystitis is not favored but is not completely ruled out. HIDA Scan was done on this admission and did not notice any obvious obstruction not a surgical canidate - Lactate initially 3.0 on repeat is 1.7 - Procalcitonin: increased from .83 to 1.54, However still less then 2. Studies show increased procalcitonin in patients with renal and liver failure can have elevated levs. Patient does not most likely have SBP and no source of infection evident at this time. Will continue to monitor. - Lipase: 486 - GI consulted - Spirnolactone and Lasix held because of hypotension. - F/U with blood cultures and urine cultures 2) Alcoholic Liver Cirrhosis - MELD score: 25.7, Child Yeh Class C w/ a 76% mortality - HOLD Lasix and Spironolactone because of hypotension - 4 more doses of albumin ordered by GI - Will follow up with evelia for full documentation of tertiary care evaluation given severe alcoholic cirrhosis - GI consult appreciated - Have spoke to patient regarding family meeting, to discuss his poor prognosis. 3) ETOH abuse -bannana bag x 2 given - Librium 50mg PO Q8 and Librium 25 mg PO Q6 PRN for withdrawls 4) Chronic Hep C - Not currently on any medications 5) DVT prophylaxis -SCD only, unable to give lovenox , platelets are 81
[2017-09-21] MEDS: Albumin Human 25% (12.5 gm/50 ml) IV SCH ×3 (10:24→11:16)
[2017-09-21] MEDS: Cholestyramine 4 gm/Pkt UD PO SCH ×4 (10:27→22:24)
[2017-09-21] MEDS ORDERED: SINCALIDE IVPB ONE (11:57)
[2017-09-21] MEDS ORDERED: SODIUM CHLORIDE 0.9% IVPB ONE (11:57)
[2017-09-22] MEDS: Cholestyramine 4 gm/Pkt UD PO SCH ×4 (09:34→17:27)
--- NOTE | 2017-09-22 10:06 | CP.PCM.PN ---
<SinaBlanka - Last Filed: 09/22/17 10:04> Subjective - Date & Time of Evaluation Date of Evaluation: 09/22/17 Time of Evaluation: 10:04 - Subjective Subjective: Gastroenterology Fellow/PGY5 Progress Note Patient tolerating diet. Minimal improvement in itching. Two bowel movements yesterday. A 12-point review of systems negative except for as above. Objective - Vital Signs/Intake and Output Vital Signs (last 24 hours): Temp Pulse Resp BP Pulse Ox 98.1 F 79 20 97/54 L 99 09/22/17 08:35 09/22/17 08:35 09/22/17 08:35 09/22/17 08:35 09/22/17 08:35 - Medications Medications: Current Medications Chlordiazepoxide (Librium) 25 mg PO Q6 PRN PRN Reason: Symptoms of alcohol withdrawl Chlordiazepoxide (Librium) 50 mg PO Q8 [facility] Last Admin: 09/22/17 09:39 Dose: 50 mg Cholestyramine Resin (Questran) 4 gm PO QID [facility] Last Admin: 09/22/17 09:34 Dose: 4 gm Famotidine (Pepcid) 20 mg PO DAILY [facility] Last Admin: 09/22/17 09:34 Dose: 20 mg Furosemide (Lasix) 40 mg PO DAILY [facility] Sincalide 0.12 mcg/ Sodium (Chloride) 100 mls @ 100 mls/hr IVPB ONCE ONE Stop: 09/21/17 12:56 Lactic Acid (Lac-Hydrin 12% Lotion (225 G)) 1 applic TOP TID [facility] Last Admin: 09/22/17 09:34 Dose: 1 applic Lactulose (Enulose) 20 gm PO DAILY [facility] Last Admin: 09/22/17 09:34 Dose: 20 gm Morphine Sulfate (Morphine) 2 mg IVP Q4 PRN PRN Reason: Pain, moderate (4-7) Last Admin: 09/22/17 08:01 Dose: 2 mg Ondansetron HCl (Zofran Inj) 4 mg IVP Q4 PRN PRN Reason: Nausea/Vomiting Spironolactone (Aldactone) 100 mg PO DAILY [facility] - Labs Labs: 09/21/17 04:50 09/21/17 04:50 PT 16.0 Seconds (9.8-13.1) H 09/21/17 04:50 INR 1.4 (0.9-1.2) H 09/21/17 04:50 APTT 37.3 Seconds (25.6-37.1) H 09/21/17 04:50 - Constitutional Appears: Non-toxic, No Acute Distress - Head Exam Head Exam: ATRAUMATIC, NORMOCEPHALIC - Eye Exam Eye Exam: EOMI, PERRL, Scleral icterus Pupil Exam: PERRL. absent: Miosis, Mydriatic - ENT Exam ENT Exam: Mucous Membranes Moist, Normal Oropharynx - Neck Exam Neck Exam: Full ROM, Normal Inspection - Respiratory Exam Respiratory Exam: Clear to Ausculation Bilateral. absent: Rales, Rhonchi, Wheezes - Cardiovascular Exam Cardiovascular Exam: RRR, +S1, +S2. absent: Gallop, Rubs - GI/Abdominal Exam GI & Abdominal Exam: Soft, Tenderness, Normal Bowel Sounds. absent: Distended, Firm, Guarding, Rigid, Organomegaly, Rebound - Extremities Exam Extremities Exam: Normal Inspection. absent: Pedal Edema - Neurological Exam Neurological Exam: Alert, Awake - Psychiatric Exam Psychiatric exam: Normal Affect, Normal Mood - Skin Skin Exam: Dry, Intact, Normal Color, Warm Assessment and Plan - Assessment and Plan (Free Text) Assessment: 42 year old male with history of Hepatitis C (diagnosed 2006, Genotype 2B, 2016 viral load [phone], treatment naive) and active alcohol abuse with recurrent admissions for alcohol withdrawal complicated by decompensated cirrhosis 2/2 ascites (no SBP on paracentesis (400cc) -07/2017) presenting with abdominal pain. Active treatment of decompensated cirrhosis 2/2 hepatic encephalopathy complicated by alcoholic hepatitis and alcohol withdrawal. HIDA scan confirms acute on chronic liver disease. Prior EGD 01/2017 showed no varices , H pylori negative erosive gastropathy, and moderate portal hypertensive gastropathy. No prior colonoscopy. Plan: >accepted to [facility] under Dr. Restrepo for alcoholic hepatitis, awaiting bed assignment -plan to evaluate for inclusion in MARGY trial >MELD 25, DF 38.7 >continue Lactulose daily, goal 2-3 BMs/day >continue cholestyramine QID for pruritis >poor candidate for steroid therapy given noncompliance >not transplant candidate given ongoing alcohol abuse and medication noncompliance >counselled on alcohol cessation >low salt diet as tolerated >daily MELD labs >will follow clinical course <Kerry Fajardo MD - Last Filed: 09/22/17 12:01> Objective - Vital Signs/Intake and Output Vital Signs (last 24 hours): Temp Pulse Resp BP Pulse Ox 98.1 F 79 20 97/54 L 99 09/22/17 08:35 09/22/17 08:35 09/22/17 08:35 09/22/17 08:35 09/22/17 08:35 - Medications Medications: Current Medications Chlordiazepoxide (Librium) 25 mg PO Q6 PRN PRN Reason: Symptoms of alcohol withdrawl Chlordiazepoxide (Librium) 50 mg PO Q8 [facility] Last Admin: 09/22/17 09:39 Dose: 50 mg Cholestyramine Resin (Questran) 4 gm PO QID [facility] Last Admin: 09/22/17 09:34 Dose: 4 gm Famotidine (Pepcid) 20 mg PO DAILY [facility] Last Admin: 09/22/17 09:34 Dose: 20 mg Furosemide (Lasix) 40 mg PO DAILY [facility] Sincalide 0.12 mcg/ Sodium (Chloride) 100 mls @ 100 mls/hr IVPB ONCE ONE Stop: 09/21/17 12:56 Lactic Acid (Lac-Hydrin 12% Lotion (225 G)) 1 applic TOP TID [facility] Last Admin: 09/22/17 09:34 Dose: 1 applic Lactulose (Enulose) 20 gm PO DAILY [facility] Last Admin: 09/22/17 09:34 Dose: 20 gm Morphine Sulfate (Morphine) 2 mg IVP Q4 PRN PRN Reason: Pain, moderate (4-7) Last Admin: 09/22/17 08:01 Dose: 2 mg Ondansetron HCl (Zofran Inj) 4 mg IVP Q4 PRN PRN Reason: Nausea/Vomiting Spironolactone (Aldactone) 100 mg PO DAILY [facility] - Labs Labs: 09/21/17 04:50 09/22/17 10:54 PT 16.0 Seconds (9.8-13.1) H 09/21/17 04:50 INR 1.4 (0.9-1.2) H 09/21/17 04:50 APTT 37.3 Seconds (25.6-37.1) H 09/21/17 04:50 Attending/Attestation - Attestation I have personally seen and examined this patient.: Yes I have fully participated in the care of the patient.: Yes I have reviewed all pertinent clinical information, including history, physical exam and plan: Yes Notes (Text): 09/22/17 11:57 This is a 42 year old male with history of Hepatitis C (diagnosed 2006, Genotype 2B, 03/2017 viral load [id number], treatment naive) and active alcohol abuse with recurrent admissions for alcohol withdrawal complicated by decompensated cirrhosis 2/2 ascites (no SBP on paracentesis (400cc) -07/2017) presenting with alcoholic hepatitis and alcohol withdrawal. HIDA scan confirms acute on chronic liver disease. Prior EGD 01/2017 showed no varices, H pylori negative erosive gastropathy, and moderate portal hypertensive gastropathy. Low compliance and hence not started on steroids. DF 38 with MELD 25. Total bilirubin increasing with no liver lesions and no choledocholithiasis. Continue daily lactulose and titrate to 2 BM/day. Poor transplant candidate due to active drinking but accepted to Hepatology service at [facility] by Dr Restrepo pending bed assignment. Low salt diet and alcohol cessation. Supportive care. Grim prognosis
--- NOTE | 2017-09-22 10:49 | CP.PCM.PN ---
Subjective - Date & Time of Evaluation Date of Evaluation: 09/22/17 Time of Evaluation: 08:00 - Subjective Subjective: 42 YO M seen at bedside. States he slept well overnight. Abdominal pain is improving. Denies N/V/D. Has been tolerating PO intake. Pending transfer to [facility] for ERAD trial. Objective - Vital Signs/Intake and Output Vital Signs (last 24 hours): Temp Pulse Resp BP Pulse Ox 98.1 F 79 20 97/54 L 99 09/22/17 08:35 09/22/17 08:35 09/22/17 08:35 09/22/17 08:35 09/22/17 08:35 - Medications Medications: Current Medications Chlordiazepoxide (Librium) 25 mg PO Q6 PRN PRN Reason: Symptoms of alcohol withdrawl Chlordiazepoxide (Librium) 50 mg PO Q8 [facility] Last Admin: 09/22/17 09:39 Dose: 50 mg Cholestyramine Resin (Questran) 4 gm PO QID [facility] Last Admin: 09/22/17 09:34 Dose: 4 gm Famotidine (Pepcid) 20 mg PO DAILY [facility] Last Admin: 09/22/17 09:34 Dose: 20 mg Furosemide (Lasix) 40 mg PO DAILY [facility] Sincalide 0.12 mcg/ Sodium (Chloride) 100 mls @ 100 mls/hr IVPB ONCE ONE Stop: 09/21/17 12:56 Lactic Acid (Lac-Hydrin 12% Lotion (225 G)) 1 applic TOP TID [facility] Last Admin: 09/22/17 09:34 Dose: 1 applic Lactulose (Enulose) 20 gm PO DAILY [facility] Last Admin: 09/22/17 09:34 Dose: 20 gm Morphine Sulfate (Morphine) 2 mg IVP Q4 PRN PRN Reason: Pain, moderate (4-7) Last Admin: 09/22/17 08:01 Dose: 2 mg Ondansetron HCl (Zofran Inj) 4 mg IVP Q4 PRN PRN Reason: Nausea/Vomiting Spironolactone (Aldactone) 100 mg PO DAILY [facility] - Labs Labs: 09/21/17 04:50 09/21/17 04:50 PT 16.0 Seconds (9.8-13.1) H 09/21/17 04:50 INR 1.4 (0.9-1.2) H 09/21/17 04:50 APTT 37.3 Seconds (25.6-37.1) H 09/21/17 04:50 - Constitutional Appears: No Acute Distress - Eye Exam Eye Exam: Scleral icterus - ENT Exam ENT Exam: Mucous Membranes Moist - Respiratory Exam Respiratory Exam: Clear to Ausculation Bilateral, NORMAL BREATHING PATTERN. absent: Rhonchi, Wheezes - Cardiovascular Exam Cardiovascular Exam: REGULAR RHYTHM, +S1, +S2 - GI/Abdominal Exam GI & Abdominal Exam: Soft, Normal Bowel Sounds - Extremities Exam Extremities Exam: Full ROM, Normal Inspection - Neurological Exam Neurological Exam: Alert, Awake, CN II-XII Intact - Psychiatric Exam Psychiatric exam: Normal Affect, Normal Mood - Skin Additional comments: jaundice Assessment and Plan - Assessment and Plan (Free Text) Assessment: 1) Abdominal pain 2/2 Alcoholic hepatitis - Tolerating regular diet - Pain controlled with meds - previously noted to have chloleycystitis but was not a candidate for Surgery because of the severity of liver failure. - Total bilirubin 20.5 - MELD score: 25, Child Yeh Class C w/ a 76% mortality - Abd CT: Mild ascetic throughout abdomen and pelvis. Trace left pleural effusion. Cirrhotic liver. - Abd U/S: Liver measures : 19.2 cm. Gallbladder appears markedly distended without cholelithiasis . Acalculous cholecystitis is not favored but is not completely ruled out. HIDA Scan was done on this admission and did not notice any obvious obstruction not a surgical canidate - Lactate initially 3.0 on repeat is 1.7 - Procalcitonin: increased from .83 to 1.54, However still less then 2. Studies show increased procalcitonin in patients with renal and liver failure can have elevated levs. Patient does not most likely have SBP and no source of infection evident at this time. Will continue to monitor. - Lipase: 486 - GI consulted - Spirnolactone and Lasix held because of hypotension. - F/U with blood cultures and urine cultures - Pending transfer to [facility] for ERAD trial. 2) Alcoholic Liver Cirrhosis - MELD score: 25.7, Child Yeh Class C w/ a 76% mortality - HOLD Lasix and Spironolactone because of hypotension - GI consult appreciated - Alpha feta protein: 2.4 WNL - Have spoke to patient regarding family meeting, to discuss his poor prognosis. - Pending transfer to [facility] for ERAD trial. 3) ETOH abuse -bannana bag x 2 given - Librium 50mg PO Q8 and Librium 25 mg PO Q6 PRN for withdrawls 4) Chronic Hep C - Not currently on any medications 5) DVT prophylaxis -SCD only, unable to give lovenox , platelets are 81
[2017-09-22 11:20] LABS: ALKALINE PHOSPHATASE 265 U/L (38-126); ALT/SGPT 50 U/L (21-72); AST/SGOT 107 U/L (17-59); BILIRUBIN,TOTAL 22.4 mg/dl (0.2-1.3); BLOOD UREA NITROGEN 21 mg/dl (9-20); CALCIUM 8.3 mg/dL (8.4-10.2); CARBON DIOXIDE 21 mmol/L (22-30); CHLORIDE 111 mmol/L (98-107); GFR AFRICAN-AMERICAN > 60; GLUCOSE,RANDOM 89 mg/dL (75-110); POTASSIUM 4.5 MMOL/L (3.6-5.0); SODIUM 138 mmol/l (132-148)
[2017-09-22 11:22] LABS: ALB/GLOB RATIO 0.6 (1.0-2.1); TOTAL PROTEIN 6.4 G/DL (6.3-8.2)
[2017-09-22 11:41] LABS: HEMATOCRIT 30.6 % (35.0-51.0); MEAN CORPUSCULAR HEMOGLOBIN 36.1 pg (27.0-31.0); MEAN PLATELET VOLUME 10.3 fl (7.2-11.7); NEUT % 71.7 % (50.0-75.0); PLATELET COUNT 82 K/uL (130-400); RED CELL DISTRIBUTION WIDTH 19.1 % (11.5-14.5); WHITE BLOOD COUNT 6.9 K/uL (4.8-10.8)
[2017-09-22 11:42] LABS: BASO % 0.7 % (0.0-2.0); EOS # 0.2 K/uL (0.0-0.7); EOS % 2.4 % (0.0-4.0); LYMPH # 0.7 K/uL (1.0-4.3); LYMPH % 9.7 % (20.0-40.0); MONO # 1.1 K/uL (0.0-0.8); MONO % 15.5 % (0.0-10.0); NRBC % 0.3 % (0.0-0.0)
[2017-09-22 12:59] LABS: EOSINOPHIL 2 % (0-7); NEUTROPHIL 70 % (42-75); TOTAL CELLS COUNTED 100
[2017-09-22 13:00] LABS: LARGE PLATELETS PRESENT
[2017-09-22 13:12] VITALS: O2SAT 97
[2017-09-22 16:24] VITALS: BP 110/67; PULSE 81; RESP 16; TEMP 98.1
--- NOTE | 2017-09-22 17:26 | CP.PCM.DIS ---
Provider - Provider Date of Admission: 09/19/17 19:47 Attending physician: Debra Stevens MD Primary care physician: Cristi Freitas MD Time Spent in preparation of Discharge (in minutes): 30 Diagnosis - Discharge Diagnosis (1) Abdominal pain Status: Acute (2) Cirrhosis Status: Acute (3) Alcohol withdrawal delirium Status: Acute Hospital Course - Lab Results Lab Results: Micro Results 09/18/17 14:56 Blood Blood Culture - Preliminary NO GROWTH AFTER 4 DAYS 09/18/17 14:56 Blood Blood Culture - Preliminary NO GROWTH AFTER 4 DAYS Most Recent Lab Values WBC 6.9 K/uL (4.8-10.8) 09/22/17 10:54 RBC 2.89 Mil/uL (4.40-5.90) L 09/22/17 10:54 Hgb 10.4 g/dL (12.0-18.0) L 09/22/17 10:54 Hct 30.6 % (35.0-51.0) L 09/22/17 10:54 MCV 106.0 fl (80.0-94.0) H 09/22/17 10:54 MCH 36.1 pg (27.0-31.0) H 09/22/17 10:54 MCHC 34.0 g/dL (33.0-37.0) 09/22/17 10:54 RDW 19.1 % (11.5-14.5) H 09/22/17 10:54 Plt Count 82 K/uL (130-400) L 09/22/17 10:54 MPV 10.3 fl (7.2-11.7) 09/22/17 10:54 Neut % (Auto) 71.7 % (50.0-75.0) 09/22/17 10:54 Lymph % (Auto) 9.7 % (20.0-40.0) L 09/22/17 10:54 [place] % (Auto) 15.5 % (0.0-10.0) H 09/22/17 10:54 Eos % (Auto) 2.4 % (0.0-4.0) 09/22/17 10:54 Baso % (Auto) 0.7 % (0.0-2.0) 09/22/17 10:54 Neut # 5.0 K/uL (1.8-7.0) 09/22/17 10:54 Lymph # 0.7 K/uL (1.0-4.3) L 09/22/17 10:54 [place] # 1.1 K/uL (0.0-0.8) H 09/22/17 10:54 Eos # 0.2 K/uL (0.0-0.7) 09/22/17 10:54 Baso # 0.0 K/uL (0.0-0.2) 09/22/17 10:54 Neutrophils % (Manual) 70 % (42-75) 09/22/17 10:54 Lymphocytes % (Manual) 13 % (20-50) L 09/22/17 10:54 Monocytes % (Manual) 15 % (0-10) H 09/22/17 10:54 Eosinophils % (Manual) 2 % (0-7) 09/22/17 10:54 Platelet Estimate Decreased (NORMAL) L 09/22/17 10:54 Large Platelets Present 09/22/17 10:54 Hypochromasia (manual) Slight 09/22/17 10:54 Anisocytosis (manual) Slight 09/22/17 10:54 Macrocytosis (manual) Moderate 09/22/17 10:54 PT 16.0 Seconds (9.8-13.1) H 09/22/17 10:54 INR 1.4 (0.9-1.2) H 09/22/17 10:54 APTT 37.3 Seconds (25.6-37.1) H 09/21/17 04:50 pO2 44 mm/Hg (30-55) 09/18/17 13:44 VBG pH 7.41 (7.32-7.43) 09/18/17 13:44 VBG pCO2 34 mmHg (40-60) L 09/18/17 13:44 VBG HCO3 22.6 mmol/L 09/18/17 13:44 VBG Total CO2 22.6 mmol/L (22-28) 09/18/17 13:44 VBG O2 Sat (Calc) 84.1 % (40-65) H 09/18/17 13:44 VBG Base Excess -2.4 mmol/L (0.0-2.0) L 09/18/17 13:44 VBG Potassium 4.0 mmol/L (3.6-5.2) 09/18/17 13:44 Sodium 130.0 mmol/L (132-148) L 09/18/17 13:44 Chloride 102.0 mmol/L (98-107) 09/18/17 13:44 Glucose 84 mg/dL (75-110) 09/18/17 13:44 Lactate 1.7 mmol/L (0.7-2.1) 09/18/17 13:44 FiO2 21.0 % 09/18/17 13:44 Sodium 138 mmol/l (132-148) 09/22/17 10:54 Potassium 4.5 MMOL/L (3.6-5.0) 09/22/17 10:54 Chloride 111 mmol/L (98-107) H 09/22/17 10:54 Carbon Dioxide 21 mmol/L (22-30) L 09/22/17 10:54 Anion Gap 11 (10-20) 09/22/17 10:54 BUN 21 mg/dl (9-20) H 09/22/17 10:54 Creatinine 1.2 mg/dl (0.8-1.5) 09/22/17 10:54 Est GFR ( Amer) > 60 09/22/17 10:54 Est GFR (Non-Af Amer) > 60 09/22/17 10:54 Random Glucose 89 mg/dL (75-110) 09/22/17 10:54 Calcium 8.3 mg/dL (8.4-10.2) L 09/22/17 10:54 Phosphorus 4.2 mg/dl (2.5-4.5) 09/18/17 14:51 Magnesium 2.1 MG/DL (1.6-2.3) 09/18/17 14:51 Total Bilirubin 22.4 mg/dl (0.2-1.3) H 09/22/17 10:54 GGT 152 U/L (8-78) H 09/18/17 14:51 AST 107 U/L (17-59) H 09/22/17 10:54 ALT 50 U/L (21-72) 09/22/17 10:54 Alkaline Phosphatase 265 U/L (38-126) H 09/22/17 10:54 Ammonia 49 umo/L (16-60) D 09/21/17 04:50 Total Protein 6.4 G/DL (6.3-8.2) 09/22/17 10:54 Albumin 2.4 g/dL (3.5-5.0) L 09/22/17 10:54 Globulin 4.0 gm/dL (2.2-3.9) H 09/22/17 10:54 Albumin/Globulin Ratio 0.6 (1.0-2.1) L 09/22/17 10:54 Lipase 486 U/L (23-300) H 09/18/17 10:54 Alpha Fetoprotein 2.4 IU/mL (0.0-7.22) 09/21/17 09:00 Procalcitonin 1.54 NG/ML (0.19-0.49) H 09/19/17 12:09 Venous Blood Potassium 4.0 mmol/L (3.6-5.2) 09/18/17 13:44 - Hospital Course Hospital Course: 42 YO M w/ PMH of Liver Cirrhosis secondary to ETOH abuse, chronic Hep C, was admitted for worsening abdominal pain secondary to alcoholic hepatitis and ascitis. MELD score: 25, Child Yeh Class C w/ a 76% mortality. Patient was thoroughly worked up. Abd CT: Mild ascetic throughout abdomen and pelvis. Trace left pleural effusion. Cirrhotic liver. Abd U/S: Liver measures : 19.2 cm. Gallbladder appears markedly distended without cholelithiasis . Acalculous cholecystitis is not favored but is not completely ruled out. HIDA Scan was done on this admission and did not notice any obvious obstruction not a surgical canidate. - GI had been consulted during patients stay. Patient is a poor candidate for liver transplant because of his continuous alcohol abuse. However patient has been excepted at [facility] for a MARGY trial. As per GI recommendations, patient will be transferred to Dr. Restrepo service at [facility]. Ambulatory orders: Librium 50 Q8 cholestyramine 4 gm PO QID Pepcid 20 PO Daily Lactulose 20 gm PO HOLDING Furosemide and Spirnolactone because of patients hypotension Discharge Exam - Head Exam Head Exam: ATRAUMATIC, NORMOCEPHALIC - Eye Exam Eye Exam: Scleral icterus - Respiratory Exam Respiratory Exam: Clear to PA & Lateral. absent: Rales, Rhonchi, Wheezes - Cardiovascular Exam Cardiovascular Exam: REGULAR RHYTHM, +S1, +S2 - GI/Abdominal Exam GI & Abdominal Exam: Distended, Soft - Neurological Exam Neurological exam: Alert, CN II-XII Intact, Oriented x3 - Skin Skin Exam: Normal Color, Warm Additional comments: jaundice Discharge Plan - Follow Up Plan Condition: GOOD Disposition: OTHER INSTITUTION Additional Instructions: Patient is being transfered to [facility] for MARGY trial Referrals: Cristi Freitas MD [Primary Care Provider] -
== END 2017-09-22 18:40 | disposition short-term general hospital (02) | DRG 557 ==
LOC: H.ER 07:43 → H.ERHOLD 13:50 → H.TEL 16:21 → OBSVTOIN 09-19 19:47 → H.TEL 09-19 22:54
PROVIDERS: ADMIT Family Medicine Geriatric Medicine; ATTEND Family Medicine Geriatric Medicine
DX: K70.11 Alcoholic hepatitis with ascites (principal); K72.90 Hepatic failure, unspecified without coma; K70.31 Alcoholic cirrhosis of liver with ascites; F10.231 Alcohol dependence with withdrawal delirium; K82.1 Hydrops of gallbladder; B18.2 Chronic viral hepatitis C; K81.9 Cholecystitis, unspecified; R16.1 Splenomegaly, not elsewhere classified; J45.909 Unspecified asthma, uncomplicated; R17 Unspecified jaundice; L29.9 Pruritus, unspecified; Z91.19 Patient's noncompliance with other medical treatment and regimen; Z91.14 Patient's other noncompliance with medication regimen; I95.2 Hypotension due to drugs; T50.1X5A Adverse effect of loop [high-ceiling] diuretics, initial encounter; T50.0X5A Adverse effect of mineralocorticoids and their antagonists, initial encounter

== ENCOUNTER 2017-10-06 09:56 | Observation (INO) | payer OTHER ==
[2017-10-06 10:14] VITALS: BMI 31.4
--- NOTE | 2017-10-06 11:37 | ED PDOC ---
HPI: Abdomen Time Seen by Provider: 10/06/17 10:27 Chief Complaint (Nursing): Abdominal Pain Chief Complaint (Provider): Vomiting History Per: Patient History/Exam Limitations: no limitations Onset/Duration Of Symptoms: Days (x 1) Current Symptoms Are (Timing): Still Present Additional Complaint(s): 42 year old male with history of cirrhosis, hepatitis C, liver cancer and alcohol abuse presents to the ED complaining of vomiting and abdominal pain, since yesterday. He reports multiple episodes of non bloody non bilious vomiting and today developed midepigastric pain. His stool is brown but when he wiped he saw some bright red blood. Also experiencing some general weakness and he had shortness of breathe with coughing/vomiting. Has been seen for this previously, was transferred to [facility] where he was discharged with new medications. Denies fever and chest pain. Pmd: none Past Medical History Reviewed: Historical Data, Nursing Documentation, Vital Signs Vital Signs: Last Vital Signs Temp 98.5 F 10/06/17 10:14 Pulse 68 10/06/17 15:35 Resp 14 10/06/17 15:35 BP 124/79 10/06/17 15:35 Pulse Ox 100 10/06/17 16:18 - Medical History PMH: Asthma, Gall Bladder Disease Denies: Anemia (Denies), Diabetes, Hepatitis, HIV, HTN, Chronic Kidney Disease, Seizures, Sexually Transmitted Disease - Family History Family History: States: Unknown Family Hx - Social History Current smoker - smoking cessation education provided: Yes Alcohol: > 2 Drinks/Day Drugs: Cocaine, Other (heroin) - Immunization History Hx Tetanus Toxoid Vaccination: No Hx Influenza Vaccination: No Hx Pneumococcal Vaccination: No - Home Medications Home Medications: Ambulatory Orders Medication Instructions Recorded chlordiazePOXIDE [Librium] 25 mg PO Q8 PRN #12 cap 09/02/17 Famotidine [Pepcid] 20 mg PO DAILY 09/18/17 Ammonium Lactate 12% [Lac-Hydrin 1 applic TOP TID bottle 09/22/17 12% Lotion (225 g)] Cholestyramine [Questran] 4 gm PO QID packet 09/22/17 Lactulose [Enulose] 20 gm PO DAILY udc 09/22/17 chlordiazePOXIDE [Librium] 25 mg PO Q6 PRN cap 09/22/17 chlordiazePOXIDE [Librium] 50 mg PO Q8 cap 09/22/17 - Allergies Allergies/Adverse Reactions: Allergies Allergy/AdvReac Type Severity Reaction Status Date / Time No Known Allergies Allergy Verified 10/06/17 10:23 Review of Systems ROS Statement: Except As Marked, All Systems Reviewed And Found Negative Constitutional: Negative for: Fever Cardiovascular: Negative for: Chest Pain Gastrointestinal: Positive for: Vomiting, Abdominal Pain Neurological: Positive for: Weakness Physical Exam - Reviewed Nursing Documentation Reviewed: Yes Vital Signs Reviewed: Yes - Physical Exam Appears: Positive for: Non-toxic, No Acute Distress Head Exam: Positive for: ATRAUMATIC, NORMOCEPHALIC Skin: Positive for: Normal Color, Warm, DRY Eye Exam: Positive for: Scleral icterus Cardiovascular/Chest: Positive for: Regular Rate, Rhythm Respiratory: Positive for: Normal Breath Sounds Gastrointestinal/Abdominal: Positive for: Soft, Tenderness (midepigastric). Negative for: Distended, Guarding, Rebound, Asicites, Other (Dhillon's and McBurney's signs) Back: Positive for: Normal Inspection Extremity: Positive for: Normal ROM Neurologic/Psych: Positive for: Alert, Oriented. Negative for: Other (asterixis ) - Laboratory Results Result Diagrams: 10/06/17 11:48 10/06/17 11:48 - ECG O2 Sat by Pulse Oximetry: 100 (RA) Pulse Ox Interpretation: Normal Medical Decision Making Medical Decision Making: Time; 11:07 Impresion: Abdominal Pain Differential diagnoses include: ascites, cirrhosis and cholecystitis Initial Plan: --Ammonia --CMP --Lipase --CBC --Chest X-ray --Pepcid 20 mg IVP --Zofran Inj 4 mg IVP --Blood Cx --Abdomen US --Abdomen/ Pelvis CT Chest Xray FINDINGS: IMPRESSION: No acute cardiopulmonary pathology. Incidental benign-appearing pulmonary granulomas inferred 1:30 PM - Labs reviewed. WBC elevated. Venous blood gas shock panel ordered. Lactic acid normal. US pending. CXR normal. Abdominal Sono: IMPRESSION: No acute findings related to/accounting for the clinical presentation. No significant interval change compared to the prior examination(s). Cirrhotic appearing liver, hepatofugal blood flow. No appreciable interval change. CT Abd/ Pelvis IMPRESSION: No evidence of colitis. Cirrhotic liver portal hypertension noted. Nonvisualization of gallstones identified on recent ultrasound. Patient has an elevated WBC at 18. He denies fever. UA negative. He continues to have abdominal pain and treated with Morphine IV. Abdominal exam unchanged on reevaluation. Case discussed with Dr. Harris who will admit patient to the FP service under Dr. Debra Stevens in a med/surg bed. He will give antibiotics if needed and get GI on board. Scribe Attestation: Documented by Anuradha Miller, acting as a scribe for Yoandy Koroma DO Provider Scribe Attestation: All medical record entries made by the Scribe were at my direction and personally dictated by me. I have reviewed the chart and agree that the record accurately reflects my personal performance of the history, physical exam, medical decision making, and the department course for this patient. I have also personally directed, reviewed, and agree with the discharge instructions and disposition. Disposition - Clinical Impression Clinical Impression: Abdominal pain, Leukocytosis - Patient ED Disposition Is Patient to be Admitted: Yes - Disposition Disposition Time: 15:14 Condition: GUARDED Patient Signed Over To: Debra Stevens - Pt Status Changed To: Hospital Disposition Of: Inpatient - Admit Certification Admit to Inpatient:: After my assessment, the patient will require hospitalization for at least two midnights. This is because of the severity of symptoms shown, intensity of services needed, and/or the medical risk in this patient being treated as an outpatient.
--- NOTE | 2017-10-06 11:50 | RAD ---
PROCEDURE: CHEST RADIOGRAPH, 1 VIEW HISTORY: cough r/o pna COMPARISON: 07/24/2017 FINDINGS: LUNGS: Left lung granulomas inferred. . Granulomas are slightly more conspicuous probably due to technical differences rather than interval change No consolidation suggested suggested PLEURA: . No pneumothorax or pleural fluid seen. CARDIOVASCULAR: Normal. OSSEOUS STRUCTURES: No significant abnormalities. VISUALIZED UPPER ABDOMEN: Normal. OTHER FINDINGS: None. IMPRESSION: No acute cardiopulmonary pathology. Incidental benign-appearing pulmonary granulomas inferred
[2017-10-06 12:04] LABS: HEMOGLOBIN 12.4 g/dL (12.0-18.0); LYMPH # 1.5 K/uL (1.0-4.3); LYMPH % 8.2 % (20.0-40.0); MEAN CELL VOLUME 104.3 fl (80.0-94.0); MEAN CORPUSCULAR HEMOGLOBIN 33.7 pg (27.0-31.0); MEAN CORPUSCULAR HGB CONC 32.3 g/dL (33.0-37.0); MEAN PLATELET VOLUME 10.3 fl (7.2-11.7); MONO # 6.1 K/uL (0.0-0.8); PLATELET COUNT 101 K/uL (130-400); RBC 3.67 Mil/uL (4.40-5.90); RED CELL DISTRIBUTION WIDTH 18.6 % (11.5-14.5); WHITE BLOOD COUNT 18.7 K/uL (4.8-10.8)
[2017-10-06 12:18] LABS: ALB/GLOB RATIO 0.7 (1.0-2.1); ALBUMIN 2.6 g/dL (3.5-5.0); ALT/SGPT 127 U/L (21-72); AST/SGOT 109 U/L (17-59); BLOOD UREA NITROGEN 22 mg/dl (9-20); CALCIUM 8.7 mg/dL (8.4-10.2); GFR AFRICAN-AMERICAN > 60; GFR NON-AFRICAN AMERICAN > 60; LIPASE 460 U/L (23-300); MONO % 32.8 % (0.0-10.0)
[2017-10-06 13:08] LABS: VENOUS BLOOD GAS BASE EXCESS -0.6 mmol/L (0.0-2.0); VENOUS BLOOD GAS PCO2 35 mmHg (40-60); VENOUS BLOOD GAS PO2 36 mm/Hg (30-55); VENOUS BLOOD PH 7.43 (7.32-7.43)
--- NOTE | 2017-10-06 13:46 | US ---
HISTORY: abd pain r/o cholecystitis COMPARISON: 09/18/2017 abdominal ultrasound. 09/18/2017 CT abdomen and pelvis. TECHNIQUE: Sonographic evaluation of the right upper quadrant of the abdomen. FINDINGS: LIVER: Measures 17 cm in length. Nodular liver contour again identified. Variable echogenicity of the liver parenchyma. No mass. No intrahepatic bile duct dilatation. Reversal of hepato pedal flow which remains hepatofugal. Re- cannulization of the periumbilical vein consistent with portal hypertension. GALLBLADDER: Gallbladder wall thickening. No evidence of pericholecystic fluid, sludge or sonographic Dhillon's sign. No gallstones. COMMON BILE DUCT: Measures 5.7 mm. No stones. No dilatation. PANCREAS: Obscured by overlying bowel gas. Non diagnostic assessment of the pancreas RIGHT KIDNEY: Measures 6 x 12.8 cm in length. Normal echogenicity. No calculus, mass, or hydronephrosis. AORTA: No aneurysmal dilatation. IVC: Unremarkable. OTHER FINDINGS: None . IMPRESSION: No acute findings related to/accounting for the clinical presentation. No significant interval change compared to the prior examination(s). Cirrhotic appearing liver, hepatofugal blood flow. No appreciable interval change.
[2017-10-06] MEDS ORDERED: Sodium Chloride 0.9% 50 ML IV ONE (14:08)
[2017-10-06] MEDS ORDERED: Iohexol 300 100 ML IJ ONE (14:08)
--- NOTE | 2017-10-06 14:47 | CT ---
PROCEDURE: CT Abdomen and Pelvis with contrast HISTORY: abd pain, leukocytosis r/o appy r/o colitis COMPARISON: 09/18/2017 CT abdomen and pelvis. . Abdominal ultrasound TECHNIQUE: Contrast dose: 95 cc Omnipaque 300 Radiation dose: Total exam DLP = 1007.36 mGy-cm. This CT exam was performed using one or more of the following dose reduction techniques: Automated exposure control, adjustment of the mA and/or kV according to patient size, and/or use of iterative reconstruction technique. FINDINGS: LOWER THORAX: Unremarkable. LIVER: Cirrhotic liver, markedly dilated portal venous system. Reconstitution of umbilical vein, large varicosities throughout the anterior abdomen and additional dilated venous varicosities left upper quadrant including splenic veins, gastric varices identified primarily along the greater curve and fundal region. GALLBLADDER AND BILE DUCTS: Mildly contracted gallbladder, gallbladder wall thickening. Gallstones identified on concurrent ultrasound are not readily identified. Trace pericholecystic fluid. PANCREAS: Unremarkable. No gross lesion or ductal dilatation. SPLEEN: Stable splenomegaly. No ADRENALS: Unremarkable. No mass. KIDNEYS AND URETERS: Unremarkable. No hydronephrosis. No solid mass. VASCULATURE: Unremarkable. No aortic aneurysm. BOWEL: Unremarkable. No obstruction. No gross mural thickening. APPENDIX: Normal appendix. PERITONEUM: Unremarkable. No free fluid. No free air. LYMPH NODES: Unremarkable. No enlarged lymph nodes. BLADDER: Unremarkable. REPRODUCTIVE: Unremarkable. BONES: No acute fracture. OTHER FINDINGS: None. IMPRESSION: No evidence of colitis. Cirrhotic liver portal hypertension noted. Nonvisualization of gallstones identified on recent ultrasound.
[2017-10-06 14:58] LABS: URINE BACTERIA RARE (<OCC); URINE BILIRUBIN NEGATIVE (NEGATIVE); URINE BLOOD MODERATE (NEGATIVE); URINE CLARITY SLIGHTY-CLOUDY (Clear); URINE COLOR AMBER (YELLOW); URINE GLUCOSE (UA) NEG (Normal); URINE LEUKOCYTE ESTERASE NEG Leu/uL (Negative); URINE NITRATE NEGATIVE (NEGATIVE); URINE PROTEIN NEGATIVE (NEGATIVE); URINE UROBILINOGEN 0.2-1.0 mg/dL (0.2-1.0)
[2017-10-06] MEDS ORDERED: Morphine 4 MG/ML VIAL IVP ONE (15:08)
[2017-10-06 15:38] LABS: EOSINOPHIL 1 % (0-7); LYMPHOCYTE 5 % (20-50); MONOCYTE 12 % (0-10); MYELOCYTE 2 % (0-0); NEUTROPHIL 80 % (42-75); TOTAL CELLS COUNTED 100
[2017-10-06 15:39] LABS: ANISOCYTOSIS SLIGHT; OVALOCYTES SLIGHT; PLATELET ESTIMATE SLIGHTLY DECREASED (NORMAL); POIKILOCYTOSIS SLIGHT
[2017-10-06 15:40] LABS: LARGE PLATELETS PRESENT; TOXIC GRANULATION PRESENT
[2017-10-06] MEDS ORDERED: Morphine 4 MG/ML VIAL ONE (16:22)
--- NOTE | 2017-10-06 16:58 | CP.PCM.HP ---
History of Present Illness - History of Present Illness History of Present Illness: 42yo M w/ PMHx cirrhosis, EtOH abuse, chronic Hep C admitted for abdominal pain in setting of leukocytosis with diarrhea and vomiting. Stopped drinking alcohol 1-2 weeks ago, previously 1 pint daily. Denies abd pain currently. Bloody/ bilious vomiting x2 days, red blood, 2x yesterday and multiple times today. Diarrhea x1 week, initially reported hematochezia with wiping today then recounted daily episodes of hematochezia in toilet bowl. Denies fever, chills, n /v. No new foods. PMD: [facility] 09/02/[address] 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) FamilyHx: [place] -next of kin is mother Marija - Full code Present on Admission - Present on Admission Any Indicators Present on Admission: No Review of Systems - Review of Systems All systems: reviewed and no additional remarkable complaints except - Gastrointestinal Gastrointestinal: Hematemesis, Hematochezia, Nausea, Vomiting Past Patient History - Past Medical History & Family History Past Medical History?: Yes - Past Social History Alcohol: > 2 Drinks/Day Drugs: Cocaine, Other (heroin) - CARDIAC Hx Hypertension: No - PULMONARY Hx Asthma: Yes - NEUROLOGICAL Hx Seizures: No - HEENT Hx HEENT Problems: No - RENAL Hx Chronic Kidney Disease: No - ENDOCRINE/METABOLIC Hx Endocrine Disorders: No - HEMATOLOGICAL/ONCOLOGICAL Hx Anemia: No (Denies) Hx Human Immunodeficiency Virus (HIV): No - INTEGUMENTARY Hx Dermatological Problems: No - MUSCULOSKELETAL/RHEUMATOLOGICAL Hx Musculoskeletal Disorders: No - GASTROINTESTINAL Hx Gall Bladder Disease: Yes - GENITOURINARY/GYNECOLOGICAL Hx Sexually Transmitted Disorders: No - PSYCHIATRIC Hx Psychophysiologic Disorder: Yes (Alcohol abuse) - SURGICAL HISTORY Hx Surgeries: No - ANESTHESIA Hx Anesthesia: No Hx Anesthesia Reactions: No Meds Allergies/Adverse Reactions: Allergies Allergy/AdvReac Type Severity Reaction Status Date / Time No Known Allergies Allergy Verified 10/06/17 10:23 Physical Exam - Constitutional Appears: Well, No Acute Distress - Head Exam Head Exam: ATRAUMATIC, NORMOCEPHALIC - Eye Exam Eye Exam: Scleral icterus - ENT Exam ENT Exam: Mucous Membranes Moist - Neck Exam Neck exam: Positive for: Full Rom, Normal Inspection. Negative for: Meningismus - Respiratory Exam Respiratory Exam: Clear to Auscultation Bilateral, NORMAL BREATHING PATTERN - Cardiovascular Exam Cardiovascular Exam: REGULAR RHYTHM. absent: Systolic Murmur - GI/Abdominal Exam GI & Abdominal Exam: Soft. absent: Distended, Tenderness - Extremities Exam Extremities exam: Positive for: normal inspection - Neurological Exam Neurological exam: Alert, Oriented x3 - Skin Skin Exam: Dry, Warm Results - Vital Signs Recent Vital Signs: Last Vital Signs Temp 98.2 F 10/06/17 16:35 Pulse 81 10/06/17 16:35 Resp 14 10/06/17 16:35 BP 131/75 10/06/17 16:35 Pulse Ox 99 10/06/17 16:35 - Labs Result Diagrams: 10/06/17 11:48 10/06/17 11:48 Labs: Laboratory Results - last 24 hr 10/06/17 10/06/17 10/06/17 11:48 11:48 11:48 WBC 18.7 H D RBC 3.67 L Hgb 12.4 D Hct 38.2 MCV 104.3 H MCH 33.7 H MCHC 32.3 L RDW 18.6 H Plt Count 101 L MPV 10.3 Neut % (Auto) 59.0 Lymph % (Auto) 8.2 L Letcher % (Auto) 32.8 H Eos % (Auto) 0.0 Baso % (Auto) 0.0 Neut # 11.0 H Lymph # 1.5 Letcher # 6.1 H Eos # 0.0 Baso # 0.0 Neutrophils % (Manual) 80 H Lymphocytes % (Manual) 5 L Monocytes % (Manual) 12 H Eosinophils % (Manual) 1 Myelocytes % 2 H Toxic Granulation Present Platelet Estimate Slightly decreased L Large Platelets Present Poikilocytosis (manual Slight Anisocytosis (manual) Slight Macrocytosis (manual) Slight Ovalocytes Slight pO2 VBG pH VBG pCO2 VBG HCO3 VBG Total CO2 VBG O2 Sat (Calc) VBG Base Excess VBG Potassium Glucose Lactate FiO2 Sodium 138 Potassium 4.0 Chloride 108 H Carbon Dioxide 23 Anion Gap 11 BUN 22 H Creatinine 1.0 Est GFR ( Amer) > 60 Est GFR (Non-Af Amer) > 60 Random Glucose 136 H Calcium 8.7 Total Bilirubin 10.6 H AST 109 H ALT 127 H D Alkaline Phosphatase 241 H Ammonia 49 Total Protein 6.5 Albumin 2.6 L Globulin 3.9 Albumin/Globulin Ratio 0.7 L Lipase 460 H Venous Blood Potassium Urine Color Urine Clarity Urine pH Ur Specific Gruver Urine Protein Urine Glucose (UA) Urine Ketones Urine Blood Urine Nitrate Urine Bilirubin Urine Urobilinogen Ur Leukocyte Esterase Urine RBC (Auto) Urine Microscopic WBC Urine Bacteria 10/06/17 10/06/17 13:00 14:38 WBC RBC Hgb Hct MCV MCH MCHC RDW Plt Count MPV Neut % (Auto) Lymph % (Auto) Letcher % (Auto) Eos % (Auto) Baso % (Auto) Neut # Lymph # Letcher # Eos # Baso # Neutrophils % (Manual) Lymphocytes % (Manual) Monocytes % (Manual) Eosinophils % (Manual) Myelocytes % Toxic Granulation Platelet Estimate Large Platelets Poikilocytosis (manual Anisocytosis (manual) Macrocytosis (manual) Ovalocytes pO2 36 VBG pH 7.43 VBG pCO2 35 L VBG HCO3 23.7 VBG Total CO2 24.3 VBG O2 Sat (Calc) 72.2 H VBG Base Excess -0.6 L VBG Potassium 4.3 Glucose 140 H Lactate 1.3 FiO2 21.0 Sodium 135.0 Potassium Chloride 110.0 H Carbon Dioxide Anion Gap BUN Creatinine Est GFR ( Amer) Est GFR (Non-Af Amer) Random Glucose Calcium Total Bilirubin AST ALT Alkaline Phosphatase Ammonia Total Protein Albumin Globulin Albumin/Globulin Ratio Lipase Venous Blood Potassium 4.3 Urine Color Jessica Urine Clarity Slighty-cloudy Urine pH 6.0 Ur Specific Gruver 1.027 Urine Protein Negative Urine Glucose (UA) Neg Urine Ketones Negative Urine Blood Moderate Urine Nitrate Negative Urine Bilirubin Negative Urine Urobilinogen 0.2-1.0 Ur Leukocyte Esterase Neg Urine RBC (Auto) 36 H Urine Microscopic WBC 5 Urine Bacteria Rare Assessment & Plan - Assessment and Plan (Free Text) Assessment: 42 YO M w/ PMH of Alcoholic liver cirrhosis, Hep C, admitted for right sided periumbilical pain of uncertain etiology hematemesis, hematochezia - NPO -H/H stable, monitor, repeat CBC -IV protonix -IVF -Abd CT: Cirrhotic liver -Abd U/S: no cholecystitis -GI consulted -FOBT diarrhea -stool ova parasite -stool cx leukocytosis -afebrile -F/U with blood cultures and urine cultures microscopic hematuria -repeat UA -urine cx Alcoholic Liver Cirrhosis -ammonia WNL - MELD score and Child Yeh Class C to be calculated with INR - GI consult appreciated h/o ETOH abuse -serum EtOH -if elevated, start EtOH withdrawal protocol and CIWA Chronic Hep C -GI c/s smoker -patch DVT prophylaxis -SCDs only -no lovenox given presentation of hematemesis and hematochezia - Decision To Admit - Pt Status Changed To: Hospital Disposition Of: Inpatient - Admit Certification Admit to Inpatient:: After my assessment, the patient will require hospitalization for at least two midnights. This is because of the severity of symptoms shown, intensity of services needed, and/or the medical risk in this patient being treated as an outpatient. - . Bed Request Type: Med/Surg Admitting Physician: Debra Stevens
[2017-10-06 20:58] LABS: BARBITURATES, UR NEGATIVE (NEGATIVE); PHENCYCLIDINE, UR NEGATIVE (NEGATIVE)
[2017-10-06 21:01] LABS: SQUAMOUS EPITHIAL < 1 /hpf (0-5); URINE BACTERIA RARE (<OCC); URINE BILIRUBIN NEGATIVE (NEGATIVE); URINE BLOOD MODERATE (NEGATIVE); URINE CLARITY SLIGHTY-CLOUDY (Clear); URINE COLOR AMBER (YELLOW); URINE GLUCOSE (UA) NEG (Normal); URINE LEUKOCYTE ESTERASE NEG Leu/uL (Negative); URINE NITRATE NEGATIVE (NEGATIVE); URINE PROTEIN NEGATIVE (NEGATIVE); URINE UROBILINOGEN 0.2-1.0 mg/dL (0.2-1.0)
[2017-10-06 21:02] LABS: BENZODIAZEPINES, UR POSITIVE (NEGATIVE); OPIATES, UR POSITIVE (NEGATIVE)
[2017-10-06] MEDS: Sodium Chloride 0.9% 1,000 ML IV SCH (21:50)
[2017-10-07] MEDS: Sodium Chloride 0.9% 1,000 ML IV SCH (02:57)
[2017-10-07 06:48] LABS: ALBUMIN 2.3 g/dL (3.5-5.0); ALT/SGPT 121 U/L (21-72); AST/SGOT 92 U/L (17-59); BASO % 0.1 % (0.0-2.0); BLOOD UREA NITROGEN 22 mg/dl (9-20); CALCIUM 8.2 mg/dL (8.4-10.2); EOS % 0.1 % (0.0-4.0); GFR AFRICAN-AMERICAN > 60; GFR NON-AFRICAN AMERICAN > 60; HEMOGLOBIN 11.4 g/dL (12.0-18.0); LYMPH # 0.8 K/uL (1.0-4.3); LYMPH % 4.7 % (20.0-40.0); MAGNESIUM 1.7 MG/DL (1.6-2.3); MEAN CORPUSCULAR HEMOGLOBIN 34.3 pg (27.0-31.0); MEAN CORPUSCULAR HGB CONC 32.4 g/dL (33.0-37.0); MEAN PLATELET VOLUME 10.6 fl (7.2-11.7); MONO # 1.4 K/uL (0.0-0.8); MONO % 8.4 % (0.0-10.0); NEUT % 86.7 % (50.0-75.0); RBC 3.31 Mil/uL (4.40-5.90); RED CELL DISTRIBUTION WIDTH 18.8 % (11.5-14.5); WHITE BLOOD COUNT 16.2 K/uL (4.8-10.8)
[2017-10-07 06:49] LABS: ALB/GLOB RATIO 0.6 (1.0-2.1)
[2017-10-07 07:23] LABS: INR 1.4 (0.9-1.2); PARTIAL THROMBOPLASTIN TIME 34.4 Seconds (25.6-37.1)
[2017-10-07] MEDS ORDERED: Chlorhexidine Gluconate 1 APPL/PKT TP ONE (07:43)
--- NOTE | 2017-10-07 08:44 | CP.PCM.CON ---
<Jerri Fernandez - Last Filed: 10/07/17 10:11> History of Present Illness - History of Present Illness History of Present Illness: PGY4 Initial GI Consult Darryl Mendez is a 42M w/ hx of Hep C 2/2 IV drug use, ETOH abuse, and cirrhosis who presented to the ER with complaints of abd pain, vomiting, constipation and rectal bleeding. Pt states that he has stopped drinking ETOH for 2 week. Previously he was consuming at least 1 pint of vodka daily. He states that he started to experience 1-2 episodes of emesis yesterday. He states that there were a few drops of blood, but mostly bile and food residue. He also admitted to concurrent abd pain around his perumbilical area radiating to his epigastrum. He notes that the pain resolved after his emesis. He also reports chronic constipation for months. He notes that he had to strain to evacuate his bowels. He noticed blood around his stool at this time, but only streaks on the stool. He denies any hematachezia, hematemesis, melena, or coffee -ground emesis. He was recently admitted in 09/2017 at [facility] for Acute Alcohol Hepatitis with a MELD of 25. He was transferred to [facility] for possible ELIAD, but apparently signed out AMA. He does not recall his home meds , but denies continuing his Lactulose. Prior EGD 01/2017 showed no varices, H pylori negative erosive gastropathy, and moderate portal hypertensive gastropathy. Of note, patient has chronic finding of dilated gallbladder hydrops deemed secondary to mild ascites with no associated gallstones, biliary dilatations, and normal HIDA scan 07/27/17. Surgical evaluation deemed to be a poor candidate due to cirrhosis and ongoing alcohol abuse. Med hx as above Family- denies stomach cancer, colon cancer, liver cancer Social -1/2ppd >20 years, 1-2 pints of liquor daily since teenager, quit heroin/ cocaine in 2001 Surgery- none Endo Hx: 01/2017 showed no varices, H pylori negative erosive gastropathy, and moderate portal hypertensive gastropathy. ROS: 12-point ROS conducted, neg other than above Past Patient History - Past Medical History & Family History Past Medical History?: Yes - Past Social History Alcohol: > 2 Drinks/Day Drugs: Cocaine, Other (heroin) - CARDIAC Hx Hypertension: No - PULMONARY Hx Asthma: Yes - NEUROLOGICAL Hx Seizures: No - HEENT Hx HEENT Problems: No - RENAL Hx Chronic Kidney Disease: No - ENDOCRINE/METABOLIC Hx Endocrine Disorders: No - HEMATOLOGICAL/ONCOLOGICAL Hx Anemia: No (Denies) Hx Human Immunodeficiency Virus (HIV): No - INTEGUMENTARY Hx Dermatological Problems: No - MUSCULOSKELETAL/RHEUMATOLOGICAL Hx Musculoskeletal Disorders: No - GASTROINTESTINAL Hx Gall Bladder Disease: Yes - GENITOURINARY/GYNECOLOGICAL Hx Sexually Transmitted Disorders: No - PSYCHIATRIC Hx Psychophysiologic Disorder: Yes (Alcohol abuse) - SURGICAL HISTORY Hx Surgeries: No - ANESTHESIA Hx Anesthesia: No Hx Anesthesia Reactions: No Meds Allergies/Adverse Reactions: Allergies Allergy/AdvReac Type Severity Reaction Status Date / Time No Known Allergies Allergy Verified 10/06/17 10:23 - Medications Medications: Current Medications Cholestyramine Resin (Questran) 4 gm PO DAILY [facility] Sodium Chloride (Sodium Chloride 0.9%) 1,000 mls @ 150 mls/hr IV .Q6H40M [facility] Last Admin: 10/07/17 02:57 Dose: Not Given Lactulose (Enulose) 20 gm PO BID [facility] Nicotine (Nicoderm Cq) 1 patch TD DAILY [facility] Ondansetron HCl (Zofran Inj) 4 mg IVP Q6 PRN PRN Reason: Nausea/Vomiting Pantoprazole Sodium (Protonix Inj) 40 mg IVP DAILY [facility] Physical Exam - Constitutional Appears: Well, No Acute Distress - Head Exam Head Exam: ATRAUMATIC, NORMOCEPHALIC - Eye Exam Eye Exam: Scleral icterus - Neck Exam Neck exam: Positive for: Normal Inspection - Respiratory Exam Respiratory Exam: Clear to Auscultation Bilateral, NORMAL BREATHING PATTERN. absent: Rales, Rhonchi, Wheezes, Respiratory Distress - Cardiovascular Exam Cardiovascular Exam: REGULAR RHYTHM, +S1, +S2 - GI/Abdominal Exam GI & Abdominal Exam: Normal Bowel Sounds, Soft. absent: Guarding, Rebound, Rigid, Tenderness - Rectal Exam Rectal Exam: Hemorrhoids. absent: Black Stool, Bloody Stool, Fecal Impaction - Extremities Exam Extremities exam: Negative for: joint swelling, pedal edema - Back Exam Back exam: NORMAL INSPECTION - Neurological Exam Neurological exam: Alert, Oriented x3 - Psychiatric Exam Psychiatric exam: Normal Affect, Normal Mood - Skin Skin Exam: Dry, Warm Additional comments: scleral icturis, flat petecial-like rash on chest Results - Vital Signs Recent Vital Signs: Last Vital Signs Temp 98 F 10/07/17 00:00 Pulse 52 L 10/07/17 00:00 Resp 18 10/07/17 00:00 BP 103/45 L 10/07/17 00:00 Pulse Ox 97 10/07/17 00:00 - Labs Result Diagrams: 10/07/17 05:40 10/07/17 05:40 Labs: Laboratory Results - last 24 hr 10/06/17 10/06/17 10/06/17 11:48 11:48 11:48 WBC 18.7 H D RBC 3.67 L Hgb 12.4 D Hct 38.2 MCV 104.3 H MCH 33.7 H MCHC 32.3 L RDW 18.6 H Plt Count 101 L MPV 10.3 Neut % (Auto) 59.0 Lymph % (Auto) 8.2 L Rich % (Auto) 32.8 H Eos % (Auto) 0.0 Baso % (Auto) 0.0 Neut # 11.0 H Lymph # 1.5 Rich # 6.1 H Eos # 0.0 Baso # 0.0 Neutrophils % (Manual) 80 H Lymphocytes % (Manual) 5 L Monocytes % (Manual) 12 H Eosinophils % (Manual) 1 Myelocytes % 2 H Toxic Granulation Present Platelet Estimate Slightly decreased L Large Platelets Present Poikilocytosis (manual Slight Anisocytosis (manual) Slight Macrocytosis (manual) Slight Ovalocytes Slight PT INR APTT pO2 VBG pH VBG pCO2 VBG HCO3 VBG Total CO2 VBG O2 Sat (Calc) VBG Base Excess VBG Potassium Glucose Lactate FiO2 Sodium 138 Potassium 4.0 Chloride 108 H Carbon Dioxide 23 Anion Gap 11 BUN 22 H Creatinine 1.0 Est GFR ( Amer) > 60 Est GFR (Non-Af Amer) > 60 Random Glucose 136 H Calcium 8.7 Magnesium Total Bilirubin 10.6 H AST 109 H ALT 127 H D Alkaline Phosphatase 241 H Ammonia 49 Total Protein 6.5 Albumin 2.6 L Globulin 3.9 Albumin/Globulin Ratio 0.7 L Lipase 460 H Venous Blood Potassium Urine Color Urine Clarity Urine pH Ur Specific [place] Urine Protein Urine Glucose (UA) Urine Ketones Urine Blood Urine Nitrate Urine Bilirubin Urine Urobilinogen Ur Leukocyte Esterase Urine RBC (Auto) Urine Microscopic WBC Ur Squamous Epith Cells Urine Bacteria Urine Opiates Screen Urine Methadone Screen Ur Barbiturates Screen Ur Phencyclidine Scrn Ur Amphetamines Screen U Benzodiazepines Scrn U Oth Cocaine Metabols U Cannabinoids Screen Alcohol, Quantitative 10/06/17 10/06/17 10/06/17 13:00 14:38 19:06 WBC RBC Hgb Hct MCV MCH MCHC RDW Plt Count MPV Neut % (Auto) Lymph % (Auto) Rich % (Auto) Eos % (Auto) Baso % (Auto) Neut # Lymph # Rich # Eos # Baso # Neutrophils % (Manual) Lymphocytes % (Manual) Monocytes % (Manual) Eosinophils % (Manual) Myelocytes % Toxic Granulation Platelet Estimate Large Platelets Poikilocytosis (manual Anisocytosis (manual) Macrocytosis (manual) Ovalocytes PT INR APTT pO2 36 VBG pH 7.43 VBG pCO2 35 L VBG HCO3 23.7 VBG Total CO2 24.3 VBG O2 Sat (Calc) 72.2 H VBG Base Excess -0.6 L VBG Potassium 4.3 Glucose 140 H Lactate 1.3 FiO2 21.0 Sodium 135.0 Potassium Chloride 110.0 H Carbon Dioxide Anion Gap BUN Creatinine Est GFR ( Amer) Est GFR (Non-Af Amer) Random Glucose Calcium Magnesium Total Bilirubin AST ALT Alkaline Phosphatase Ammonia Total Protein Albumin Globulin Albumin/Globulin Ratio Lipase Venous Blood Potassium 4.3 Urine Color Jessica Urine Clarity Slighty-cloudy Urine pH 6.0 Ur Specific [place] 1.027 Urine Protein Negative Urine Glucose (UA) Neg Urine Ketones Negative Urine Blood Moderate Urine Nitrate Negative Urine Bilirubin Negative Urine Urobilinogen 0.2-1.0 Ur Leukocyte Esterase Neg Urine RBC (Auto) 36 H Urine Microscopic WBC 5 Ur Squamous Epith Cells Urine Bacteria Rare Urine Opiates Screen Urine Methadone Screen Ur Barbiturates Screen Ur Phencyclidine Scrn Ur Amphetamines Screen U Benzodiazepines Scrn U Oth Cocaine Metabols U Cannabinoids Screen Alcohol, Quantitative < 10 10/06/17 10/06/17 10/07/17 20:22 20:22 05:40 WBC 16.2 H RBC 3.31 L Hgb 11.4 L Hct 35.1 MCV 106.0 H MCH 34.3 H MCHC 32.4 L RDW 18.8 H Plt Count 85 L MPV 10.6 Neut % (Auto) 86.7 H Lymph % (Auto) 4.7 L Rich % (Auto) 8.4 Eos % (Auto) 0.1 Baso % (Auto) 0.1 Neut # 14.0 H Lymph # 0.8 L Rich # 1.4 H Eos # 0.0 Baso # 0.0 Neutrophils % (Manual) Lymphocytes % (Manual) Monocytes % (Manual) Eosinophils % (Manual) Myelocytes % Toxic Granulation Platelet Estimate Large Platelets Poikilocytosis (manual Anisocytosis (manual) Macrocytosis (manual) Ovalocytes PT INR APTT pO2 VBG pH VBG pCO2 VBG HCO3 VBG Total CO2 VBG O2 Sat (Calc) VBG Base Excess VBG Potassium Glucose Lactate FiO2 Sodium Potassium Chloride Carbon Dioxide Anion Gap BUN Creatinine Est GFR ( Amer) Est GFR (Non-Af Amer) Random Glucose Calcium Magnesium Total Bilirubin AST ALT Alkaline Phosphatase Ammonia Total Protein Albumin Globulin Albumin/Globulin Ratio Lipase Venous Blood Potassium Urine Color Jessica Urine Clarity Slighty-cloudy Urine pH 7.0 Ur Specific [place] 1.019 Urine Protein Negative Urine Glucose (UA) Neg Urine Ketones Negative Urine Blood Moderate Urine Nitrate Negative Urine Bilirubin Negative Urine Urobilinogen 0.2-1.0 Ur Leukocyte Esterase Neg Urine RBC (Auto) 7 H Urine Microscopic WBC 2 Ur Squamous Epith Cells < 1 Urine Bacteria Rare Urine Opiates Screen Positive H Urine Methadone Screen Negative Ur Barbiturates Screen Negative Ur Phencyclidine Scrn Negative Ur Amphetamines Screen Negative U Benzodiazepines Scrn Positive U Oth Cocaine Metabols Negative U Cannabinoids Screen Negative Alcohol, Quantitative 10/07/17 10/07/17 05:40 05:40 WBC RBC Hgb Hct MCV MCH MCHC RDW Plt Count MPV Neut % (Auto) Lymph % (Auto) Rich % (Auto) Eos % (Auto) Baso % (Auto) Neut # Lymph # Rich # Eos # Baso # Neutrophils % (Manual) Lymphocytes % (Manual) Monocytes % (Manual) Eosinophils % (Manual) Myelocytes % Toxic Granulation Platelet Estimate Large Platelets Poikilocytosis (manual Anisocytosis (manual) Macrocytosis (manual) Ovalocytes PT 16.0 H INR 1.4 H APTT 34.4 pO2 VBG pH VBG pCO2 VBG HCO3 VBG Total CO2 VBG O2 Sat (Calc) VBG Base Excess VBG Potassium Glucose Lactate FiO2 Sodium 137 Potassium 4.6 Chloride 111 H Carbon Dioxide 19 L Anion Gap 12 BUN 22 H Creatinine 0.9 Est GFR ( Amer) > 60 Est GFR (Non-Af Amer) > 60 Random Glucose 97 Calcium 8.2 L Magnesium 1.7 Total Bilirubin 9.5 H AST 92 H ALT 121 H Alkaline Phosphatase 213 H Ammonia Total Protein 6.0 L Albumin 2.3 L Globulin 3.7 Albumin/Globulin Ratio 0.6 L Lipase Venous Blood Potassium Urine Color Urine Clarity Urine pH Ur Specific [place] Urine Protein Urine Glucose (UA) Urine Ketones Urine Blood Urine Nitrate Urine Bilirubin Urine Urobilinogen Ur Leukocyte Esterase Urine RBC (Auto) Urine Microscopic WBC Ur Squamous Epith Cells Urine Bacteria Urine Opiates Screen Urine Methadone Screen Ur Barbiturates Screen Ur Phencyclidine Scrn Ur Amphetamines Screen U Benzodiazepines Scrn U Oth Cocaine Metabols U Cannabinoids Screen Alcohol, Quantitative Assessment & Plan - Assessment and Plan (Free Text) Assessment: Darryl Mendez is a 42M w/ hx of HCV, ETOH abuse, Cirrhosis who presents to the ER with complaints of abd pain, emesis and rectal bleeding Emesis, Etoh withdrawl vs entercolitis? (resolved) Abd pain has (resolved) Rectal bleeding, etiology likely hemorrhoidal Cirrhosis, 2/2 ETOH vs HCV Chronic HCV, treatment naive Plan: -restart laculose 20g BID, titrate to 2-3 BM daily -continue PPI daily -restart propanolol BID -no plan for endoscopy -start regular diet -started cholesthyramine for puritis -will eventually need to follow-up with [facility] for Liver transplant eval -Daily MELD labs -MELD 18: 19 -Pt want to get discharged, okay from GI standpoint ,please discharge on lactulose 20g BID and propanolol =can follow-up with Dr kong as an oupt D/W Dr. Kong <Tana MAJANO,[facility] - Last Filed: 10/07/17 17:02> Results - Vital Signs Recent Vital Signs: Last Vital Signs Temp 97.0 F L 10/07/17 08:00 Pulse 50 L 10/07/17 08:00 Resp 20 10/07/17 08:00 BP 99/59 L 10/07/17 08:00 Pulse Ox 100 10/07/17 08:00 - Labs Result Diagrams: 10/07/17 05:40 10/07/17 05:40 Labs: Laboratory Results - last 24 hr 0110/06/17 10/06/17 19:06 20:22 20:22 WBC RBC Hgb Hct MCV MCH MCHC RDW Plt Count MPV Neut % (Auto) Lymph % (Auto) Rich % (Auto) Eos % (Auto) Baso % (Auto) Neut # Lymph # Rich # Eos # Baso # PT INR APTT Sodium Potassium Chloride Carbon Dioxide Anion Gap BUN Creatinine Est GFR ( Amer) Est GFR (Non-Af Amer) Random Glucose Calcium Magnesium Total Bilirubin AST ALT Alkaline Phosphatase Total Protein Albumin Globulin Albumin/Globulin Ratio Urine Color Jessica Urine Clarity Slighty-cloudy Urine pH 7.0 Ur Specific [place] 1.019 Urine Protein Negative Urine Glucose (UA) Neg Urine Ketones Negative Urine Blood Moderate Urine Nitrate Negative Urine Bilirubin Negative Urine Urobilinogen 0.2-1.0 Ur Leukocyte Esterase Neg Urine RBC (Auto) 7 H Urine Microscopic WBC 2 Ur Squamous Epith Cells < 1 Urine Bacteria Rare Urine Opiates Screen Positive H Urine Methadone Screen Negative Ur Barbiturates Screen Negative Ur Phencyclidine Scrn Negative Ur Amphetamines Screen Negative U Benzodiazepines Scrn Positive U Oth Cocaine Metabols Negative U Cannabinoids Screen Negative Alcohol, Quantitative < 10 10/07/17 10/07/17 10/07/17 05:40 05:40 05:40 WBC 16.2 H RBC 3.31 L Hgb 11.4 L Hct 35.1 MCV 106.0 H MCH 34.3 H MCHC 32.4 L RDW 18.8 H Plt Count 85 L MPV 10.6 Neut % (Auto) 86.7 H Lymph % (Auto) 4.7 L Rich % (Auto) 8.4 Eos % (Auto) 0.1 Baso % (Auto) 0.1 Neut # 14.0 H Lymph # 0.8 L Rich # 1.4 H Eos # 0.0 Baso # 0.0 PT 16.0 H INR 1.4 H APTT 34.4 Sodium 137 Potassium 4.6 Chloride 111 H Carbon Dioxide 19 L Anion Gap 12 BUN 22 H Creatinine 0.9 Est GFR ( Amer) > 60 Est GFR (Non-Af Amer) > 60 Random Glucose 97 Calcium 8.2 L Magnesium 1.7 Total Bilirubin 9.5 H AST 92 H ALT 121 H Alkaline Phosphatase 213 H Total Protein 6.0 L Albumin 2.3 L Globulin 3.7 Albumin/Globulin Ratio 0.6 L Urine Color Urine Clarity Urine pH Ur Specific [place] Urine Protein Urine Glucose (UA) Urine Ketones Urine Blood Urine Nitrate Urine Bilirubin Urine Urobilinogen Ur Leukocyte Esterase Urine RBC (Auto) Urine Microscopic WBC Ur Squamous Epith Cells Urine Bacteria Urine Opiates Screen Urine Methadone Screen Ur Barbiturates Screen Ur Phencyclidine Scrn Ur Amphetamines Screen U Benzodiazepines Scrn U Oth Cocaine Metabols U Cannabinoids Screen Alcohol, Quantitative Attending/Attestation - Attestation I have personally seen and examined this patient.: Yes I have fully participated in the care of the patient.: Yes I have reviewed all pertinent clinical information: Yes Notes (Text): 10/07/17 17:00 Patient seen this am. This is a 42 year old male with history of Hepatitis C ( diagnosed 2006, Genotype 2B, 03/2017 viral load 358,436, treatment naive) and active alcohol abuse with recurrent admissions for alcohol withdrawal complicated by decompensated cirrhosis 2/2 ascites (no SBP on paracentesis ( 400cc) -07/2017) presenting with alleged diagnosis of hematochezia with stable baseline Hb/Hct. No episodes in the hospital. Prior EGD 01/2017 showed no varices , H pylori negative erosive gastropathy, and moderate portal hypertensive gastropathy. Continue daily lactulose and titrate to 2 BM/day. Poor transplant candidate due to active drinking with recent transfer to Hepatology service at [facility] for [facility] but precluded due to HCv infection. Low salt diet and alcohol cessation. Supportive care. Grim prognosis
[2017-10-07] MEDS ORDERED: Cholestyramine 4 gm/Pkt UD PO SCH (09:00)
[2017-10-07 09:21] VITALS: BP 99/59; PULSE 50; RESP 20; TEMP 97; O2SAT 100
--- NOTE | 2017-10-07 09:49 | CP.PCM.PN ---
Subjective - Date & Time of Evaluation Date of Evaluation: 10/07/17 Time of Evaluation: 09:49 - Subjective Subjective: No acute overnight events. Pt feeling well this morning. Last episode of hematamasis and melana was over 24 hrs ago, last BM was well formed and was last night. Denies chest pain, dyspnea, n/v/d/c and remains afebrile. Objective - Vital Signs/Intake and Output Vital Signs (last 24 hours): Temp Pulse Resp BP Pulse Ox 97.0 F L 50 L 20 99/59 L 100 10/07/17 08:00 10/07/17 08:00 10/07/17 08:00 10/07/17 08:00 10/07/17 08:00 - Medications Medications: Current Medications Cholestyramine Resin (Questran) 4 gm PO DAILY [facility] Sodium Chloride (Sodium Chloride 0.9%) 1,000 mls @ 150 mls/hr IV .Q6H40M [facility] Last Admin: 10/07/17 02:57 Dose: Not Given Lactulose (Enulose) 20 gm PO BID [facility] Nicotine (Nicoderm Cq) 1 patch TD DAILY [facility] Last Admin: 10/07/17 09:15 Dose: 1 patch Ondansetron HCl (Zofran Inj) 4 mg IVP Q6 PRN PRN Reason: Nausea/Vomiting Pantoprazole Sodium (Protonix Inj) 40 mg IVP DAILY [facility] Last Admin: 10/07/17 09:15 Dose: 40 mg - Labs Labs: 10/07/17 05:40 10/07/17 05:40 PT 16.0 Seconds (9.8-13.1) H 10/07/17 05:40 INR 1.4 (0.9-1.2) H 10/07/17 05:40 APTT 34.4 Seconds (25.6-37.1) 10/07/17 05:40 - Constitutional Appears: Non-toxic, No Acute Distress - Head Exam Head Exam: ATRAUMATIC, NORMOCEPHALIC - Eye Exam Eye Exam: EOMI, Normal appearance - ENT Exam ENT Exam: Mucous Membranes Moist, Normal Exam - Neck Exam Neck Exam: Full ROM - Respiratory Exam Respiratory Exam: Clear to Ausculation Bilateral, NORMAL BREATHING PATTERN. absent: Rales, Wheezes - Cardiovascular Exam Cardiovascular Exam: REGULAR RHYTHM, +S1, +S2 - GI/Abdominal Exam GI & Abdominal Exam: Distended (mild, no fluid wave), Soft, Normal Bowel Sounds. absent: Guarding, Rigid, Tenderness - Extremities Exam Extremities Exam: Full ROM, Normal Inspection. absent: Calf Tenderness, Pedal Edema - Back Exam Back Exam: NORMAL INSPECTION - Neurological Exam Neurological Exam: Alert, Awake, Oriented x3 - Psychiatric Exam Psychiatric exam: Normal Affect, Normal Mood - Skin Skin Exam: Dry, Intact, Normal Color, Warm Assessment and Plan - Assessment and Plan (Free Text) Assessment: Assessment/Plan: 42 YO M w/ PMH of Alcoholic liver cirrhosis, Hep C, admitted for right sided periumbilical pain of uncertain etiology 1) hematemesis, hematochezia, resolved -likely 2/2 to chronic alcohol use, Hep C, cirrhosis -Endoscopy 01/2017, chronic erosive gastritis -Advance to regular diet this AM, tolerating well -H/H stable, monitor -IV protonix -Abd CT: Cirrhotic liver -Abd U/S: no cholecystitis -GI consult appreciated; pt stable, d/c with lactulose and follow up with Dr. Fajardo 2) Diarrhea, resolved -pending stool ova parasite and stool cx 3) Leukocytosis -downtrending, 16.2 this AM, pt remains afebrile -F/U with blood cultures and urine cultures 4) Microscopic hematuria -repeat UA as outpatient -pending urine cx 5) Alcoholic Liver Cirrhosis -ammonia WNL -MELD score and Child Yeh Class C -GI consult appreciated 6) h/o ETOH abuse -serum EtOH <10 -last use per pt was 1-2 weeks ago -CIWA score of 7, pt does not need medical rx at this time 7) Chronic Hep C -GI c/s 8) smoker -nicotine patch 9) DVT prophylaxis -SCDs only -Pt ambulating -no lovenox given presentation of hematemesis and hematochezia Dispo Pt is hemodynamically stable, d/c to home Per GI, continue Lactulose 20gm PO BID, cholestyramine 4gm PO Follow [facility] on 10/20/17 @ 10:[address] Fajardo in 1-2 weeks
== END 2017-10-07 14:14 | disposition home or self-care (01) ==
LOC: H.ER 09:56 → INTOOBSV 15:14 → H.ERHOLD 15:14 → H.MEDSURG1 16:45
PROVIDERS: ADMIT Family Medicine Geriatric Medicine; ATTEND Family Medicine Geriatric Medicine
DX: K92.0 Hematemesis (principal); K70.30 Alcoholic cirrhosis of liver without ascites; B18.2 Chronic viral hepatitis C; K92.1 Melena; R19.7 Diarrhea, unspecified; D72.829 Elevated white blood cell count, unspecified; R31.29 Other microscopic hematuria; F17.200 Nicotine dependence, unspecified, uncomplicated; F10.10 Alcohol abuse, uncomplicated; K59.00 Constipation, unspecified; K76.6 Portal hypertension; K31.89 Other diseases of stomach and duodenum; Y90.0 Blood alcohol level of less than 20 mg/100 ml; K29.60 Other gastritis without bleeding; Z85.05 Personal history of malignant neoplasm of liver; J45.909 Unspecified asthma, uncomplicated
CPT/HCPCS: 36415; 71045; 74177; 76705; 80053; 80320; 80324; 80345; 80346; 80349; 80353; 80358; 80361; 81003; 82140; 82803; 83690; 83735; 83992; 85025; 85610; 85730; 87040; 87045; 87086; 87177; 87209; 96374; 96375; 99285; C9113; G0328; G0378; J2270; J2405; J7040; Q9967

== ENCOUNTER 2018-06-01 03:44 | Emergency (ER) | payer OTHER, SELFPAY ==
[2018-06-01 04:18] VITALS: TEMP 98.1; BMI 33.5
--- NOTE | 2018-06-01 04:43 | ED PDOC ---
HPI: Abdomen Time Seen by Provider: 06/01/18 03:50 Chief Complaint (Nursing): Abdominal Pain Chief Complaint (Provider): abdominal pain History Per: Patient History/Exam Limitations: no limitations Onset/Duration Of Symptoms: Hrs Current Symptoms Are (Timing): Still Present Location Of Pain/Discomfort: Epigastric, Periumbilical Associated Symptoms: denies: Fever, Chills, Nausea, Vomiting, Diarrhea, Constipation, Urinary Symptoms Additional Complaint(s): 43 y/o male history of Hepatitis C, liver cirrhosis brought in by EMS for evaluation of abdominal pain x 4 hours. Patient states he has been drinking alcohol to numb the pain, reports being noncompliant with liver medications. Patient also reports swelling to legs. Denies fever, nausea/vomiting, chest pain, shortness of breath, palpitations, vomiting, changes in bowel movements, urinary symptoms. Past Medical History Reviewed: Historical Data, Nursing Documentation, Vital Signs Vital Signs: Last Vital Signs Temp 98.1 F 06/01/18 04:01 Pulse 96 H 06/01/18 04:01 Resp 18 06/01/18 04:01 BP 126/80 06/01/18 04:01 Pulse Ox 97 06/01/18 05:16 - Medical History PMH: Gall Bladder Disease, Hepatitis Denies: Anemia (Denies), Diabetes, HIV, HTN, Chronic Kidney Disease, Seizures , Sexually Transmitted Disease - Surgical History Surgical History: No Surg Hx - Family History Family History: States: Unknown Family Hx - Social History Current smoker - smoking cessation education provided: Yes Alcohol: > 2 Drinks/Day Drugs: Denies - Immunization History Hx Tetanus Toxoid Vaccination: No Hx Influenza Vaccination: No Hx Pneumococcal Vaccination: No - Home Medications Home Medications: Ambulatory Orders Medication Instructions Recorded DiphenhydrAMINE [Benadryl] 50 mg PO Q6 PRN 10/06/17 Famotidine [Pepcid] 20 mg PO BID 10/06/17 Folic Acid 1 mg PO DAILY 10/06/17 Lactulose 20 gm PO BID #30 solution 10/07/17 - Allergies Allergies/Adverse Reactions: Allergies Allergy/AdvReac Type Severity Reaction Status Date / Time No Known Allergies Allergy Verified 06/01/18 03:50 Review of Systems ROS Statement: Except As Marked, All Systems Reviewed And Found Negative Gastrointestinal: Positive for: Abdominal Pain Physical Exam - Reviewed Nursing Documentation Reviewed: Yes Vital Signs Reviewed: Yes - Physical Exam Appears: Positive for: Well, Non-toxic, No Acute Distress (intoxicated) Head Exam: Positive for: ATRAUMATIC, NORMAL INSPECTION, NORMOCEPHALIC Skin: Positive for: Normal Color Eye Exam: Positive for: Normal appearance ENT: Positive for: Normal ENT Inspection Cardiovascular/Chest: Positive for: Regular Rate, Rhythm Respiratory: Positive for: Normal Breath Sounds Gastrointestinal/Abdominal: Positive for: Bowel Sounds, Soft, Tenderness ( epigastric, periumbilical), Distended. Negative for: Guarding, Rebound Back: Positive for: Normal Inspection Extremity: Positive for: Normal ROM, Swelling (1+ b/l LE) Neurologic/Psych: Positive for: Alert, Oriented (x3) - Laboratory Results Result Diagrams: 06/01/18 05:05 06/01/18 05:05 - ECG ECG: Positive for: Viewed By Me (reviewed by ED attending) ECG Rhythm: Positive for: Sinus Rhythm O2 Sat by Pulse Oximetry: 97 Pulse Ox Interpretation: Normal - Progress ED Course And Treament: labs, urine, IV pepcid, IV toradol, CT abd/pelvis Disposition - Clinical Impression Clinical Impression: Abdominal pain, Alcohol use - Patient ED Disposition Is Patient to be Admitted: No - Disposition Referrals: Kerry Fajardo MD [Primary Care Provider] - Disposition Time: 06:00 Condition: STABLE Forms: [employer] [employer] (Estonian) Patient Signed Over To: Ashkan Costello Handoff Comments: pending CT abd/pelvis
[2018-06-01 05:26] LABS: ALB/GLOB RATIO 0.7 (1.0-2.1); ALBUMIN 2.1 g/dL (3.5-5.0); ALT/SGPT 83 U/L (21-72); AST/SGOT 221 U/L (17-59); BLOOD UREA NITROGEN 8 mg/dl (9-20); CALCIUM 7.4 mg/dL (8.4-10.2); GFR NON-AFRICAN AMERICAN > 60; LIPASE 206 U/L (23-300)
[2018-06-01 05:27] LABS: VENOUS BLOOD GAS BASE EXCESS -2.5 mmol/L (0.0-2.0); VENOUS BLOOD GAS PCO2 39 mmHg (40-60); VENOUS BLOOD GAS PO2 62 mm/Hg (30-55); VENOUS BLOOD PH 7.37 (7.32-7.43)
[2018-06-01 05:27] LABS: BASO % 0.5 % (0.0-2.0); EOS # 0.3 K/uL (0.0-0.7); EOS % 4.6 % (0.0-4.0); HEMOGLOBIN 11.6 g/dL (12.0-18.0); LYMPH # 1.5 K/uL (1.0-4.3); LYMPH % 26.6 % (20.0-40.0); MEAN CELL VOLUME 100.5 fl (80.0-94.0); MEAN CORPUSCULAR HEMOGLOBIN 34.2 pg (27.0-31.0); MEAN CORPUSCULAR HGB CONC 34.1 g/dL (33.0-37.0); MEAN PLATELET VOLUME 9.2 fl (7.2-11.7); MONO # 0.9 K/uL (0.0-0.8); MONO % 16.6 % (0.0-10.0); NEUT # 2.8 K/uL (1.8-7.0); NEUT % 51.7 % (50.0-75.0); RBC 3.38 Mil/uL (4.40-5.90); RED CELL DISTRIBUTION WIDTH 15.8 % (11.5-14.5); WHITE BLOOD COUNT 5.5 K/uL (4.8-10.8)
[2018-06-01] MEDS ORDERED: Iohexol 300 100 ML IJ ONE (05:41)
[2018-06-01] MEDS ORDERED: Sodium Chloride 0.9% 50 ML IV ONE (05:41)
[2018-06-01 05:47] LABS: SQUAMOUS EPITHIAL < 1 /hpf (0-5); URINE BACTERIA RARE (<OCC); URINE BILIRUBIN SMALL (NEGATIVE); URINE BLOOD MODERATE (NEGATIVE); URINE CLARITY CLOUDY (Clear); URINE COLOR AMBER (YELLOW); URINE GLUCOSE (UA) NEG (Normal); URINE LEUKOCYTE ESTERASE NEG Leu/uL (Negative); URINE PROTEIN 100 mg/dL (NEGATIVE)
[2018-06-01 05:48] LABS: B-TYPE NATRIURETIC PEPTIDE < 11.1 pg/ml (0-450)
[2018-06-01 05:49] LABS: BARBITURATES, UR NEGATIVE (NEGATIVE); BENZODIAZEPINES, UR POSITIVE (NEGATIVE); OPIATES, UR NEGATIVE (NEGATIVE); PHENCYCLIDINE, UR NEGATIVE (NEGATIVE)
[2018-06-01 05:52] LABS: INR 1.1; PROTHROMBIN TIME 12.6 Seconds (9.8-13.1)
[2018-06-01 05:55] LABS: PARTIAL THROMBOPLASTIN TIME 34.3 Seconds (25.6-37.1)
[2018-06-01 07:25] VITALS: BP 127/78; PULSE 72; RESP 16; O2SAT 98
--- NOTE | 2018-06-01 09:32 | CARD ---
APPROVED REPORT Date of service: 06/01/2018 EKG Measurement Heart [id number] <Conclusion> Normal sinus rhythm Moderate voltage criteria for LVH, may be normal variant Prolonged QT Abnormal ECG
--- NOTE | 2018-06-01 17:14 | CT ---
Date of service: 06/01/2018 PROCEDURE: CT Abdomen and Pelvis with contrast HISTORY: abd pain h/o cirrhosis COMPARISON: 10/06/2017 TECHNIQUE: Contrast dose: 95 mL Omnipaque 300 Radiation dose: Total exam DLP = 739.51 mGy-cm. This CT exam was performed using one or more of the following dose reduction techniques: Automated exposure control, adjustment of the mA and/or kV according to patient size, and/or use of iterative reconstruction technique. FINDINGS: LOWER THORAX: No infiltrate. Calcified granuloma in right middle lobe. Mild cardiomegaly. LIVER: Nodular contour consistent with hepatic cirrhosis. No mass. No biliary dilatation. GALLBLADDER AND BILE DUCTS: Nonspecific mural thickening. No calcified gallstones. PANCREAS: Unremarkable. No gross lesion or ductal dilatation. SPLEEN: Unremarkable. ADRENALS: Unremarkable. No mass. KIDNEYS AND URETERS: Unremarkable. No hydronephrosis. No solid mass. VASCULATURE: Varices in left upper quadrant of abdomen. Lateral pathway from ligamentum and some to the emboli kiss. BOWEL: Unremarkable. No obstruction. No gross mural thickening. APPENDIX: Unremarkable PERITONEUM: Mild ascites. LYMPH NODES: Shotty retroperitoneal nodes without significant enlarged nodes. BLADDER: Unremarkable. REPRODUCTIVE: Normal prostate BONES: No acute fracture. OTHER FINDINGS: Mild anasarca IMPRESSION: Hepatic cirrhosis. Mild ascites. Varices. Nonspecific gallbladder wall thickening likely due to cirrhosis and ascites. Mild anasarca. The preliminary findings for this examination were reported by [email or web address] at 6:41 a.m. on 06/01/2018. There is concurrence of this report with the preliminary findings.
== END 2018-06-01 07:25 | disposition home or self-care (01) ==
LOC: H.ER 03:44
DX: R10.13 Epigastric pain (principal); R10.10 Upper abdominal pain, unspecified; F17.200 Nicotine dependence, unspecified, uncomplicated; I12.9 Hypertensive chronic kidney disease with stage 1 through stage 4 chronic kidney disease, or unspecified chronic kidney disease; K74.60 Unspecified cirrhosis of liver
CPT/HCPCS: 74177; 80053; 80320; 80324; 80345; 80346; 80349; 80353; 80358; 80361; 81003; 82140; 82803; 82948; 83690; 83880; 83992; 84484; 85025; 85610; 85730; 93005; 96374; 99283; J1885; Q9967

== ENCOUNTER 2018-08-17 19:32 | Inpatient (IN) | payer MEDICAID, OTHER ==
--- NOTE | 2018-08-17 20:35 | ED PDOC ---
HPI: Abdomen Time Seen by Provider: 08/17/18 19:53 Chief Complaint (Nursing): Abdominal Pain Chief Complaint (Provider): Abdominal pain History Per: Patient History/Exam Limitations: no limitations Additional Complaint(s): Pt reports abdominal pain and distension X 5 days, associated with nonbloody diarrhea. Was evaluated at [facility] 2 days ago, sent home with medications that have not helped. Denies recent alcohol use. Denies fever, nausea, vomiting. Past Medical History Reviewed: Nursing Documentation, Vital Signs Vital Signs: Last Vital Signs Temp 98.8 F 08/17/18 19:36 Pulse 117 H 08/17/18 19:36 Resp 18 08/17/18 19:36 BP 149/75 08/17/18 19:36 Pulse Ox 98 08/17/18 19:36 - Medical History PMH: Asthma, Gall Bladder Disease, Hepatitis Denies: Anemia (Denies), Diabetes, HIV, HTN, Chronic Kidney Disease, Seizures, Sexually Transmitted Disease - Family History Family History: States: Unknown Family Hx - Social History Current smoker - smoking cessation education provided: No - Immunization History Hx Tetanus Toxoid Vaccination: No Hx Influenza Vaccination: No Hx Pneumococcal Vaccination: No - Home Medications Home Medications: Ambulatory Orders Medication Instructions Recorded Furosemide [Lasix] 40 mg PO DAILY #30 tablet 06/02/18 Spironolactone [Aldactone] 100 mg PO DAILY #30 tablet 06/02/18 Famotidine [Pepcid] 20 mg PO BID PRN #15 tab 08/15/18 Ondansetron [Zofran Odt] 4 mg PO Q8 PRN #10 odt 08/15/18 Sucralfate [Carafate] 1 gm PO BID 08/18/18 - Allergies Allergies/Adverse Reactions: Allergies Allergy/AdvReac Type Severity Reaction Status Date / Time No Known Allergies Allergy Verified 08/15/18 08:48 Review of Systems Constitutional: Negative for: Fever, Chills Cardiovascular: Negative for: Chest Pain Respiratory: Negative for: Cough, Shortness of Breath Gastrointestinal: Positive for: Abdominal Pain, Diarrhea. Negative for: Nausea, Vomiting, Constipation, Melena, Hematochezia, Hematemesis Genitourinary Male: Negative for: Dysuria, Hematuria Skin: Negative for: Rash, Lesions Neurological: Negative for: Headache Physical Exam - Reviewed Nursing Documentation Reviewed: Yes Vital Signs Reviewed: Yes - Physical Exam Appears: Positive for: Well, No Acute Distress Skin: Positive for: Normal Color, Warm, Dry Eye Exam: Positive for: Normal appearance, EOMI, PERRL Cardiovascular/Chest: Positive for: Regular Rate, Rhythm Respiratory: Positive for: Normal Breath Sounds Gastrointestinal/Abdominal: Positive for: Bowel Sounds, Soft, Tenderness (Generalized), Distended. Negative for: Mass, Guarding Back: Positive for: Normal Inspection Extremity: Positive for: Normal ROM, Pedal Edema, Swelling (+3 pitting edema bilaterally) Neurologic/Psych: Positive for: Alert, Oriented - Laboratory Results Result Diagrams: 08/19/18 08:27 08/19/18 08:27 - ECG O2 Sat by Pulse Oximetry: 98 Medical Decision Making Medical Decision Makin yo male with abdominal pain and distension. - labs - EKG - CT abd/pelvis - Morphine Disposition - Clinical Impression Clinical Impression: Ascites due to alcoholic cirrhosis, Intractable abdominal pain, Anasarca - Patient ED Disposition Is Patient to be Admitted: Yes - Disposition Disposition Time: 23:08 Condition: STABLE - Pt Status Changed To: Hospital Disposition Of: Inpatient - Admit Certification Admit to Inpatient:: After my assessment, the patient will require hospitalization for at least two midnights. This is because of the severity of symptoms shown, intensity of services needed, and/or the medical risk in this patient being treated as an outpatient. - POA Present On Arrival: None
[2018-08-17 21:00] LABS: BASO % 0.5 % (0.0-2.0); EOS # 0.1 K/uL (0.0-0.7); HEMOGLOBIN 13.2 g/dL (12.0-18.0); LYMPH % 11.5 % (20.0-40.0); MEAN CELL VOLUME 102.4 fl (80.0-94.0); MEAN CORPUSCULAR HEMOGLOBIN 34.4 pg (27.0-31.0); MEAN CORPUSCULAR HGB CONC 33.6 g/dL (33.0-37.0); MEAN PLATELET VOLUME 9.4 fl (7.2-11.7); MONO # 1.5 K/uL (0.0-0.8); MONO % 17.2 % (0.0-10.0); NEUT % 69.8 % (50.0-75.0); RBC 3.83 Mil/uL (4.40-5.90); RED CELL DISTRIBUTION WIDTH 16.1 % (11.5-14.5); WHITE BLOOD COUNT 8.5 K/uL (4.8-10.8)
[2018-08-17 21:07] LABS: INR 1.3; PROTHROMBIN TIME 14.3 Seconds (9.8-13.1)
[2018-08-17 21:09] LABS: ALB/GLOB RATIO 0.5 (1.0-2.1); ALBUMIN 1.6 g/dL (3.5-5.0); ALT/SGPT 99 U/L (21-72); AST/SGOT 287 U/L (17-59); BLOOD UREA NITROGEN 12 mg/dl (9-20); CALCIUM 7.3 mg/dL (8.4-10.2); GFR NON-AFRICAN AMERICAN > 60; LIPASE 332 U/L (23-300); PARTIAL THROMBOPLASTIN TIME 29.7 Seconds (25.6-37.1)
[2018-08-17] MEDS ORDERED: Iohexol 300 100 ML IJ ONE (21:40)
[2018-08-17] MEDS ORDERED: Sodium Chloride 0.9% 50 ML IV ONE (21:40)
[2018-08-17 23:12] LABS: URINE BILIRUBIN SMALL (NEGATIVE); URINE BLOOD MODERATE (NEGATIVE); URINE CLARITY CLOUDY (Clear); URINE COLOR AMBER (YELLOW); URINE GLUCOSE (UA) NEG (Normal); URINE LEUKOCYTE ESTERASE NEG Leu/uL (Negative); URINE PROTEIN 30 mg/dL (NEGATIVE)
[2018-08-18 06:49] LABS: BASO % 0.7 % (0.0-2.0); EOS # 0.2 K/uL (0.0-0.7); EOS % 2.5 % (0.0-4.0); HEMOGLOBIN 12.4 g/dL (12.0-18.0); LYMPH # 1.1 K/uL (1.0-4.3); LYMPH % 16.9 % (20.0-40.0); MEAN CELL VOLUME 103.8 fl (80.0-94.0); MEAN CORPUSCULAR HEMOGLOBIN 34.6 pg (27.0-31.0); MEAN CORPUSCULAR HGB CONC 33.4 g/dL (33.0-37.0); MEAN PLATELET VOLUME 10.2 fl (7.2-11.7); MONO # 1.2 K/uL (0.0-0.8); MONO % 18.1 % (0.0-10.0); NEUT # 4.1 K/uL (1.8-7.0); NEUT % 61.8 % (50.0-75.0); NRBC % 0.1 % (0.0-0.0); RBC 3.58 Mil/uL (4.40-5.90); RED CELL DISTRIBUTION WIDTH 16.2 % (11.5-14.5); WHITE BLOOD COUNT 6.6 K/uL (4.8-10.8)
--- NOTE | 2018-08-18 06:59 | CARD ---
APPROVED REPORT Date of service: 08/17/2018 EKG Measurement Heart [id number] <Conclusion> Normal sinus rhythm Normal ECG
[2018-08-18 07:20] LABS: ALB/GLOB RATIO 0.5 (1.0-2.1); ALBUMIN 1.5 g/dL (3.5-5.0); ALT/SGPT 101 U/L (21-72); AST/SGOT 248 U/L (17-59); BLOOD UREA NITROGEN 11 mg/dl (9-20); CALCIUM 7.1 mg/dL (8.4-10.2); GFR NON-AFRICAN AMERICAN > 60
--- NOTE | 2018-08-18 07:40 | CP.PCM.HP ---
<Rodrigo Greer - Last Filed: 08/18/18 07:38> History of Present Illness - History of Present Illness History of Present Illness: 42 y/o M with a PMHx of cirrhosis, EtOH abuse, chronic Hep C is admitted for evaluation and management of abdominal and pelvic ascitis. Pt presented to ED complaining of diffuse abdominal pain and abdominal distension that progressively aggravated since 5 days ago. --Today, pt was seen adn examined by bedside with Dr Parnell. Pt reports feeling very weak since 2 days ago, going to [facility] where he was discharged with pepcid and zofran prescription. Pt als reports that badominal distension has aggravated since yesterday and noticed that his genial areas was swollen. PMD: [facility] PMHx: Chronic Hep C, Liver Cirrhosis PSHx: denied Allergies: NKDA SocialHx: Last alcohol use was 2 weeks ago, denies tobacco, deniescurrent drug use since 2001 (former heroin/cocaine) FamilyHx: NC Present on Admission - Present on Admission Any Indicators Present on Admission: No Review of Systems - Constitutional Constitutional: absent: Chills, Fever, Headache - EENT Nose/Mouth/Throat: absent: Odynophagia, Sore Throat, Tongue Swelling, Neck Pain, Neck Mass - Cardiovascular Cardiovascular: absent: Chest Pain, Palpitations, Radiating Pain - Respiratory Respiratory: absent: Cough, Dyspnea, Hemoptysis - Gastrointestinal Gastrointestinal: Abdominal Pain, Bloating. absent: Hematemesis, Hematochezia - Genitourinary Genitourinary: absent: Dysuria, Flank Pain, Hematuria, Pyuria, Nocturia Past Patient History - Infectious Disease Hx of Infectious Diseases: None - Past Medical History & Family History Past Medical History?: Yes - Past Social History Smoking Status: Smoker Currrent Status Unknown - CARDIAC Hx Hypertension: No - PULMONARY Hx Asthma: Yes - NEUROLOGICAL Hx Seizures: No - HEENT Hx HEENT Problems: No - RENAL Hx Chronic Kidney Disease: No - ENDOCRINE/METABOLIC Hx Endocrine Disorders: No - HEMATOLOGICAL/ONCOLOGICAL Hx Anemia: No (Denies) Hx Human Immunodeficiency Virus (HIV): No - INTEGUMENTARY Hx Dermatological Problems: No - MUSCULOSKELETAL/RHEUMATOLOGICAL Hx Musculoskeletal Disorders: No - GASTROINTESTINAL Hx Gall Bladder Disease: Yes - GENITOURINARY/GYNECOLOGICAL Hx Sexually Transmitted Disorders: No - PSYCHIATRIC Hx Psychophysiologic Disorder: Yes Hx Substance Use: No - SURGICAL HISTORY Hx Surgeries: No - ANESTHESIA Hx Anesthesia: No Meds Allergies/Adverse Reactions: Allergies Allergy/AdvReac Type Severity Reaction Status Date / Time No Known Allergies Allergy Verified 08/15/18 08:48 Physical Exam - Constitutional Appears: No Acute Distress - Head Exam Head Exam: ATRAUMATIC, NORMAL INSPECTION - Eye Exam Eye Exam: EOMI - ENT Exam ENT Exam: Mucous Membranes Moist - Neck Exam Neck exam: Positive for: Full Rom. Negative for: Meningismus - Respiratory Exam Respiratory Exam: NORMAL BREATHING PATTERN. absent: Rales, Rhonchi, Wheezes, Respiratory Distress - Cardiovascular Exam Cardiovascular Exam: REGULAR RHYTHM, +S1, +S2 - GI/Abdominal Exam GI & Abdominal Exam: Distended, Soft, Tenderness (diffuse). absent: Guarding, Rebound - Exam Exam: Scrotal Swelling (ascitic fluid collecting in scrotum and penis, ). absent: Circumcision - Extremities Exam Extremities exam: Negative for: calf tenderness Results - Vital Signs Recent Vital Signs: Last Vital Signs Temp 98.1 F 08/18/18 07:00 Pulse 83 08/18/18 07:00 Resp 18 08/18/18 07:00 BP 124/64 08/18/18 07:00 Pulse Ox 100 08/18/18 07:00 - Labs Result Diagrams: 08/18/18 05:45 08/18/18 05:45 Labs: Laboratory Results - last 24 hr 08/17/18 08/17/18 08/17/18 20:56 20:56 20:56 WBC 8.5 D RBC 3.83 L Hgb 13.2 Hct 39.2 MCV 102.4 H MCH 34.4 H MCHC 33.6 RDW 16.1 H Plt Count 84 L D MPV 9.4 Neut % (Auto) 69.8 Lymph % (Auto) 11.5 L [place] % (Auto) 17.2 H Eos % (Auto) 1.0 Baso % (Auto) 0.5 Neut # (Auto) 6.0 Lymph # (Auto) 1.0 Todd # (Auto) 1.5 H Eos # (Auto) 0.1 Baso # (Auto) 0.0 PT 14.3 H INR 1.3 APTT 29.7 Sodium 132 Potassium 4.5 Chloride 109 H Carbon Dioxide 23 Anion Gap 5 L BUN 12 Creatinine 0.9 Est GFR ( Amer) > 60 Est GFR (Non-Af Amer) > 60 Random Glucose 79 Calcium 7.3 L Total Bilirubin 2.6 H AST 287 H ALT 99 H Alkaline Phosphatase 296 H Total Protein 4.8 L Albumin 1.6 L D Globulin 3.2 Albumin/Globulin Ratio 0.5 L Lipase 332 H Urine Color Urine Clarity Urine pH Ur Specific [place] Urine Protein Urine Glucose (UA) Urine Ketones Urine Blood Urine Nitrate Urine Bilirubin Urine Urobilinogen Ur Leukocyte Esterase Urine RBC (Auto) Urine Microscopic WBC 08/17/18 08/18/18 08/18/18 23:03 05:45 05:45 WBC 6.6 RBC 3.58 L Hgb 12.4 Hct 37.2 MCV 103.8 H MCH 34.6 H MCHC 33.4 RDW 16.2 H Plt Count 79 L MPV 10.2 Neut % (Auto) 61.8 Lymph % (Auto) 16.9 L [place] % (Auto) 18.1 H Eos % (Auto) 2.5 Baso % (Auto) 0.7 Neut # (Auto) 4.1 Lymph # (Auto) 1.1 Todd # (Auto) 1.2 H Eos # (Auto) 0.2 Baso # (Auto) 0.0 PT INR APTT Sodium 132 Potassium 4.0 Chloride 110 H Carbon Dioxide 20 L Anion Gap 6 L BUN 11 Creatinine 0.8 Est GFR ( Amer) > 60 Est GFR (Non-Af Amer) > 60 Random Glucose 87 Calcium 7.1 L Total Bilirubin 2.1 H AST 248 H ALT 101 H Alkaline Phosphatase 268 H Total Protein 4.5 L Albumin 1.5 L Globulin 3.1 Albumin/Globulin Ratio 0.5 L Lipase Urine Color Jessica Urine Clarity Cloudy Urine pH 6.0 Ur Specific [place] 1.023 Urine Protein 30 Urine Glucose (UA) Neg Urine Ketones Negative Urine Blood Moderate Urine Nitrate Negative Urine Bilirubin Small Urine Urobilinogen 4.0 Ur Leukocyte Esterase Neg Urine RBC (Auto) 12 H Urine Microscopic WBC < 1 Assessment & Plan - Assessment and Plan (Free Text) Assessment: 42 y/o M with a PMHx of cirrhosis, EtOH abuse, chronic Hep C is admitted for evaluation and management of abdominal and pelvic ascitis. PLAN: --Afebrile, stable --Home meds resumed --GI consult, Dr Durand --Urology consult, Dr Feliciano --Continue management as ordered. Case discussed with Dr Soheila Cuello PGY-2 - Date & Time Date: 08/18/18 Time: 08:02 <Reinaldo Parnell - Last Filed: 08/18/18 19:55> Results - Vital Signs Recent Vital Signs: Last Vital Signs Temp 98.0 F 08/18/18 17:24 Pulse 72 08/18/18 17:24 Resp 19 08/18/18 17:24 BP 132/86 08/18/18 17:24 Pulse Ox 100 08/18/18 17:24 - Labs Result Diagrams: 08/18/18 05:45 08/18/18 05:45 Labs: Laboratory Results - last 24 hr 08/17/18 08/17/18 08/17/18 20:56 20:56 20:56 WBC 8.5 D RBC 3.83 L Hgb 13.2 Hct 39.2 MCV 102.4 H MCH 34.4 H MCHC 33.6 RDW 16.1 H Plt Count 84 L D MPV 9.4 Neut % (Auto) 69.8 Lymph % (Auto) 11.5 L [place] % (Auto) 17.2 H Eos % (Auto) 1.0 Baso % (Auto) 0.5 Neut # (Auto) 6.0 Lymph # (Auto) 1.0 Todd # (Auto) 1.5 H Eos # (Auto) 0.1 Baso # (Auto) 0.0 PT 14.3 H INR 1.3 APTT 29.7 Sodium 132 Potassium 4.5 Chloride 109 H Carbon Dioxide 23 Anion Gap 5 L BUN 12 Creatinine 0.9 Est GFR ( Amer) > 60 Est GFR (Non-Af Amer) > 60 Random Glucose 79 Calcium 7.3 L Total Bilirubin 2.6 H AST 287 H ALT 99 H Alkaline Phosphatase 296 H Total Protein 4.8 L Albumin 1.6 L D Globulin 3.2 Albumin/Globulin Ratio 0.5 L Lipase 332 H Urine Color Urine Clarity Urine pH Ur Specific [place] Urine Protein Urine Glucose (UA) Urine Ketones Urine Blood Urine Nitrate Urine Bilirubin Urine Urobilinogen Ur Leukocyte Esterase Urine RBC (Auto) Urine Microscopic WBC 08/17/18 08/18/18 08/18/18 23:03 05:45 05:45 WBC 6.6 RBC 3.58 L Hgb 12.4 Hct 37.2 MCV 103.8 H MCH 34.6 H MCHC 33.4 RDW 16.2 H Plt Count 79 L MPV 10.2 Neut % (Auto) 61.8 Lymph % (Auto) 16.9 L [place] % (Auto) 18.1 H Eos % (Auto) 2.5 Baso % (Auto) 0.7 Neut # (Auto) 4.1 Lymph # (Auto) 1.1 Todd # (Auto) 1.2 H Eos # (Auto) 0.2 Baso # (Auto) 0.0 PT INR APTT Sodium 132 Potassium 4.0 Chloride 110 H Carbon Dioxide 20 L Anion Gap 6 L BUN 11 Creatinine 0.8 Est GFR ( Amer) > 60 Est GFR (Non-Af Amer) > 60 Random Glucose 87 Calcium 7.1 L Total Bilirubin 2.1 H AST 248 H ALT 101 H Alkaline Phosphatase 268 H Total Protein 4.5 L Albumin 1.5 L Globulin 3.1 Albumin/Globulin Ratio 0.5 L Lipase Urine Color Jessica Urine Clarity Cloudy Urine pH 6.0 Ur Specific [place] 1.023 Urine Protein 30 Urine Glucose (UA) Neg Urine Ketones Negative Urine Blood Moderate Urine Nitrate Negative Urine Bilirubin Small Urine Urobilinogen 4.0 Ur Leukocyte Esterase Neg Urine RBC (Auto) 12 H Urine Microscopic WBC < 1 Assessment & Plan - Assessment and Plan (Free Text) Assessment: Patient was personally seen and examined by me in rounds with residents. Available labs and diagnostic data reviewed. Case, Patient's condition and management plan discussed with residents in rounds. Agree with resident's progress note. Plan: As ordered.
--- NOTE | 2018-08-18 08:51 | RAD ---
Date of service: 08/17/2018 HISTORY: Abdominal pain COMPARISON: 10/06/2017 TECHNIQUE: Chest PA and lateral FINDINGS: LINES AND TUBES: None. LUNG AND PLEURA: The lungs are well inflated and clear. No pleural effusion or pneumothorax. HEART AND MEDIASTINUM: The heart is not enlarged. No aortic atherosclerotic calcification present. The hilar and mediastinal contours are within normal limits. SKELETAL STRUCTURES: The bony structures are within normal limits for the patient's age. VISUALIZED UPPER ABDOMEN: Normal. OTHER FINDINGS: None. IMPRESSION: No active pulmonary disease.
[2018-08-18] MEDS ORDERED: Sucralfate 1 gm/10 ml Oral Susp UD ONE (08:56)
[2018-08-18] MEDS: Sucralfate 1 gm/10 ml Oral Susp UD PO SCH ×2 (08:56→21:57)
--- NOTE | 2018-08-18 10:14 | CT ---
Date of service: 08/17/2018 PROCEDURE: CT Abdomen and Pelvis with contrast HISTORY: Abd distension/pain COMPARISON: 06/01/2018 TECHNIQUE: CT scan of the abdomen and pelvis was performed after administration of intravenous contrast. Oral contrast was not administered. Coronal and sagittal reformatted images were obtained. Contrast dose: 95 mL Omnipaque 300 Radiation dose: Total exam DLP = 858.88 mGy-cm. This CT exam was performed using one or more of the following dose reduction techniques: Automated exposure control, adjustment of the mA and/or kV according to patient size, and/or use of iterative reconstruction technique. FINDINGS: LOWER THORAX: The visualized lungs are clear. LIVER: Small cirrhotic liver. No gross lesion or ductal dilatation. GALLBLADDER AND BILE DUCTS: Well distended. No calcified gallstones, wall thickening or pericholecystic fluid. PANCREAS: Normal in size with homogeneous enhancement. No gross lesion or ductal dilatation. SPLEEN: Mild splenomegaly. ADRENALS: No discrete nodule. KIDNEYS AND URETERS: Normal in size with homogeneous enhancement. No hydronephrosis. No solid mass. VASCULATURE: No aortic aneurysm. There is recanalization of the umbilical vein and multiple portosystemic varices including splenorenal and perisplenic. BOWEL: Evaluation of the bowel is limited in the absence of oral contrast. The small bowel loops are normal in caliber. The colon is grossly normal in appearance. No bowel wall thickening or obstruction. APPENDIX: Normal appendix. PERITONEUM: Moderate abdominal and pelvic ascites. No free air. LYMPH NODES: No enlarged lymph nodes. BLADDER: Decompressed. REPRODUCTIVE: The prostate gland is normal in size. BONES: No acute fracture. Degenerative disc disease at L5-S1 with vacuum disc. OTHER FINDINGS: There is severe diffuse anasarca. IMPRESSION: Cirrhosis of liver with portal hypertension and splenomegaly. Recanalization of umbilical vein and extensive portosystemic where I cysts. Moderate abdominal and pelvic ascites. Severe diffuse anasarca. A preliminary report was provided by [email or web address].
--- NOTE | 2018-08-18 21:02 | CP.PCM.CON ---
History of Present Illness - History of Present Illness History of Present Illness: 43 yo male with h/o liver cirrhosis and both alcohol abuse and hepatitis C admitted with weakness and abdominal pain. Patient has continued using alcohol heavily untill about 2 weks ago. Past Patient History - Infectious Disease Hx of Infectious Diseases: None - Past Medical History & Family History Past Medical History?: Yes - Past Social History Smoking Status: Smoker Currrent Status Unknown - CARDIAC Hx Hypertension: No - PULMONARY Hx Asthma: Yes - NEUROLOGICAL Hx Seizures: No - HEENT Hx HEENT Problems: No - RENAL Hx Chronic Kidney Disease: No - ENDOCRINE/METABOLIC Hx Endocrine Disorders: No - HEMATOLOGICAL/ONCOLOGICAL Hx Anemia: No (Denies) Hx Human Immunodeficiency Virus (HIV): No - INTEGUMENTARY Hx Dermatological Problems: No - MUSCULOSKELETAL/RHEUMATOLOGICAL Hx Musculoskeletal Disorders: No - GASTROINTESTINAL Hx Gall Bladder Disease: Yes - GENITOURINARY/GYNECOLOGICAL Hx Sexually Transmitted Disorders: No - PSYCHIATRIC Hx Psychophysiologic Disorder: Yes - SURGICAL HISTORY Hx Surgeries: No - ANESTHESIA Hx Anesthesia: No Meds Allergies/Adverse Reactions: Allergies Allergy/AdvReac Type Severity Reaction Status Date / Time No Known Allergies Allergy Verified 08/15/18 08:48 - Medications Medications: Current Medications Famotidine (Pepcid) 20 mg PO BID PRN PRN Reason: abdominal Last Admin: 08/18/18 08:59 Dose: 20 mg Furosemide (Lasix) 40 mg PO DAILY [facility] Last Admin: 08/18/18 08:56 Dose: 40 mg Morphine Sulfate (Morphine) 2 mg IVP Q6 PRN PRN Reason: Pain, severe (8-10) Last Admin: 08/18/18 15:27 Dose: 2 mg Ondansetron HCl (Zofran Odt) 4 mg PO Q8 PRN PRN Reason: Nausea/Vomiting Spironolactone (Aldactone) 100 mg PO DAILY [facility] Last Admin: 08/18/18 08:56 Dose: 100 mg Sucralfate (Carafate Oral Susp) 1 gm PO BID [facility] Last Admin: 08/18/18 08:56 Dose: 1 gm Physical Exam - Constitutional Appears: No Acute Distress - Head Exam Head Exam: ATRAUMATIC - Eye Exam Eye Exam: Normal appearance - ENT Exam ENT Exam: Normal Exam - Neck Exam Neck exam: Positive for: Full Rom - Respiratory Exam Respiratory Exam: Clear to Auscultation Bilateral - Cardiovascular Exam Cardiovascular Exam: REGULAR RHYTHM, +S1, +S2 - GI/Abdominal Exam GI & Abdominal Exam: Distended, Normal Bowel Sounds Additional comments: anasarca Results - Vital Signs Recent Vital Signs: Last Vital Signs Temp 98.0 F 08/18/18 17:24 Pulse 72 08/18/18 17:24 Resp 19 08/18/18 17:24 BP 132/86 08/18/18 17:24 Pulse Ox 100 08/18/18 17:24 - Labs Result Diagrams: 08/18/18 05:45 08/18/18 05:45 Labs: Laboratory Results - last 24 hr 08/17/18 08/17/18 08/17/18 20:56 20:56 20:56 WBC 8.5 D RBC 3.83 L Hgb 13.2 Hct 39.2 MCV 102.4 H MCH 34.4 H MCHC 33.6 RDW 16.1 H Plt Count 84 L D MPV 9.4 Neut % (Auto) 69.8 Lymph % (Auto) 11.5 L [place] % (Auto) 17.2 H Eos % (Auto) 1.0 Baso % (Auto) 0.5 Neut # (Auto) 6.0 Lymph # (Auto) 1.0 [place] # (Auto) 1.5 H Eos # (Auto) 0.1 Baso # (Auto) 0.0 PT 14.3 H INR 1.3 APTT 29.7 Sodium 132 Potassium 4.5 Chloride 109 H Carbon Dioxide 23 Anion Gap 5 L BUN 12 Creatinine 0.9 Est GFR ( Amer) > 60 Est GFR (Non-Af Amer) > 60 Random Glucose 79 Calcium 7.3 L Total Bilirubin 2.6 H AST 287 H ALT 99 H Alkaline Phosphatase 296 H Total Protein 4.8 L Albumin 1.6 L D Globulin 3.2 Albumin/Globulin Ratio 0.5 L Lipase 332 H Urine Color Urine Clarity Urine pH Ur Specific [place] Urine Protein Urine Glucose (UA) Urine Ketones Urine Blood Urine Nitrate Urine Bilirubin Urine Urobilinogen Ur Leukocyte Esterase Urine RBC (Auto) Urine Microscopic WBC 08/17/18 08/18/18 08/18/18 23:03 05:45 05:45 WBC 6.6 RBC 3.58 L Hgb 12.4 Hct 37.2 MCV 103.8 H MCH 34.6 H MCHC 33.4 RDW 16.2 H Plt Count 79 L MPV 10.2 Neut % (Auto) 61.8 Lymph % (Auto) 16.9 L [place] % (Auto) 18.1 H Eos % (Auto) 2.5 Baso % (Auto) 0.7 Neut # (Auto) 4.1 Lymph # (Auto) 1.1 [place] # (Auto) 1.2 H Eos # (Auto) 0.2 Baso # (Auto) 0.0 PT INR APTT Sodium 132 Potassium 4.0 Chloride 110 H Carbon Dioxide 20 L Anion Gap 6 L BUN 11 Creatinine 0.8 Est GFR ( Amer) > 60 Est GFR (Non-Af Amer) > 60 Random Glucose 87 Calcium 7.1 L Total Bilirubin 2.1 H AST 248 H ALT 101 H Alkaline Phosphatase 268 H Total Protein 4.5 L Albumin 1.5 L Globulin 3.1 Albumin/Globulin Ratio 0.5 L Lipase Urine Color Jessica Urine Clarity Cloudy Urine pH 6.0 Ur Specific [place] 1.023 Urine Protein 30 Urine Glucose (UA) Neg Urine Ketones Negative Urine Blood Moderate Urine Nitrate Negative Urine Bilirubin Small Urine Urobilinogen 4.0 Ur Leukocyte Esterase Neg Urine RBC (Auto) 12 H Urine Microscopic WBC < 1 Assessment & Plan (1) Cirrhosis Assessment and Plan: 43 yo with h/o Liver cirrhosis and HCV presentint with pelvic ascites , anasarca, and elevated LFTs. LFT pattern most c/w alcoholic hepatitis. Albumin levels are extremely low. Agree with diuretics started by Dr. Parnell. Will start on IV albumin. Patient would benefit for counselling to help with alcohol abuse. Status: Acute
[2018-08-18] MEDS ORDERED: Influenza Vaccine (5 YR UP)/PF 60 MCG/0.5 ML SYR IM ONE (22:00)
[2018-08-18 22:47] VITALS: BMI 35.2
--- NOTE | 2018-08-19 07:46 | CP.PCM.PN ---
<Catracho Rojas - Last Filed: 08/19/18 11:08> Subjective - Date & Time of Evaluation Date of Evaluation: 08/19/18 Time of Evaluation: 07:46 - Subjective Subjective: patient seen and examined today with Dr Parnell, reports feeling little better though still diffuse abdominal pain, afebrile, denies nausea, vomiting, diarrhea, no urinary sx. Objective - Vital Signs/Intake and Output Vital Signs (last 24 hours): Temp Pulse Resp BP Pulse Ox 98.4 F 69 20 110/67 99 08/18/18 23:41 08/18/18 23:41 08/18/18 23:41 08/18/18 23:41 08/18/18 23:41 - Medications Medications: Current Medications Albumin Human (Albumin Human 25% (12.5 Gm/50 Ml)) 12.5 gm IV TID [facility] Famotidine (Pepcid) 20 mg PO BID PRN PRN Reason: abdominal Last Admin: 08/18/18 08:59 Dose: 20 mg Furosemide (Lasix) 40 mg PO DAILY [facility] Last Admin: 08/18/18 08:56 Dose: 40 mg Morphine Sulfate (Morphine) 2 mg IVP Q6 PRN PRN Reason: Pain, severe (8-10) Last Admin: 08/19/18 04:33 Dose: 2 mg Ondansetron HCl (Zofran Odt) 4 mg PO Q8 PRN PRN Reason: Nausea/Vomiting Spironolactone (Aldactone) 100 mg PO DAILY [facility] Last Admin: 08/18/18 08:56 Dose: 100 mg Sucralfate (Carafate Oral Susp) 1 gm PO BID [facility] Last Admin: 08/18/18 21:57 Dose: Not Given - Labs Labs: 08/18/18 05:45 08/18/18 05:45 PT 14.3 Seconds (9.8-13.1) H 08/17/18 20:56 INR 1.3 08/17/18 20:56 APTT 29.7 Seconds (25.6-37.1) 08/17/18 20:56 - Constitutional Appears: No Acute Distress - Respiratory Exam Respiratory Exam: Clear to Ausculation Bilateral - Cardiovascular Exam Cardiovascular Exam: REGULAR RHYTHM, +S1, +S2 - GI/Abdominal Exam GI & Abdominal Exam: Distended, Tenderness (diffuse), Normal Bowel Sounds - Exam Exam: Scrotal Swelling - Extremities Exam Extremities Exam: absent: Calf Tenderness, Pedal Edema - Neurological Exam Neurological Exam: Alert, Oriented x3 Assessment and Plan - Assessment and Plan (Free Text) Assessment: 42 y/o M with a PMHx of cirrhosis, EtOH abuse, chronic Hep C is admitted for evaluation and management of abdominal and pelvic ascitis. PLAN: - Afebrile, stable - Home meds resumed - GI consult Dr Durand, recommendations appreciated - Urology consult, Dr Feliciano - daily weight - f/u labs in am - Continue management as ordered. <Reinaldo Parnell K - Last Filed: 08/22/18 07:45> Objective - Vital Signs/Intake and Output Vital Signs (last 24 hours): Temp Pulse Resp BP Pulse Ox 99.0 F 70 20 112/64 98 08/21/18 23:50 08/21/18 23:50 08/21/18 23:50 08/21/18 23:50 08/21/18 23:50 - Medications Medications: Current Medications Acetaminophen (Tylenol 325mg Tab) 650 mg PO Q6 PRN PRN Reason: Pain, moderate (4-7) Carvedilol (Coreg) 3.125 mg PO Q12 [facility] Last Admin: 08/21/18 22:30 Dose: 3.125 mg Famotidine (Pepcid) 20 mg PO BID PRN PRN Reason: abdominal Last Admin: 08/21/18 08:34 Dose: 20 mg Furosemide (Lasix) 40 mg PO DAILY [facility] Last Admin: 08/21/18 08:34 Dose: 40 mg Guaifenesin/Dextromethorphan (Robitussin Dm) 10 ml PO TID PRN PRN Reason: Cough Last Admin: 08/21/18 22:32 Dose: 10 ml Morphine Sulfate (Morphine) 2 mg IVP Q6 PRN PRN Reason: Pain, severe (8-10) Last Admin: 08/20/18 10:46 Dose: 2 mg Ondansetron HCl (Zofran Odt) 4 mg PO Q8 PRN PRN Reason: Nausea/Vomiting Spironolactone (Aldactone) 100 mg PO DAILY [facility] Last Admin: 08/21/18 08:28 Dose: 100 mg Sucralfate (Carafate Oral Susp) 1 gm PO BID [facility] Last Admin: 08/21/18 16:26 Dose: 1 gm Tramadol HCl (Ultram) 50 mg PO BID PRN PRN Reason: Pain, moderate (4-7) Last Admin: 08/21/18 08:42 Dose: 50 mg - Labs Labs: 08/22/18 05:55 08/22/18 05:55 PT 14.3 Seconds (9.8-13.1) H 08/17/18 20:56 INR 1.3 08/17/18 20:56 APTT 29.7 Seconds (25.6-37.1) 08/17/18 20:56 Assessment and Plan - Assessment and Plan (Free Text) Assessment: Patient was personally seen and examined by me in rounds with residents. Available labs and diagnostic data reviewed. Case, Patient's condition and management plan discussed with residents in rounds. Agree with resident's progress note. Plan: As ordered.
[2018-08-19 08:39] LABS: HEMOGLOBIN 12.2 g/dL (12.0-18.0); MEAN CELL VOLUME 101.2 fl (80.0-94.0); MEAN CORPUSCULAR HEMOGLOBIN 34.1 pg (27.0-31.0); MEAN CORPUSCULAR HGB CONC 33.7 g/dL (33.0-37.0); RBC 3.57 Mil/uL (4.40-5.90); RED CELL DISTRIBUTION WIDTH 15.7 % (11.5-14.5); WHITE BLOOD COUNT 5.2 K/uL (4.8-10.8)
[2018-08-19 08:45] LABS: ALB/GLOB RATIO 0.5 (1.0-2.1); ALBUMIN 1.3 g/dL (3.5-5.0); ALT/SGPT 94 U/L (21-72); AMYLASE 75 U/L (30-110); AST/SGOT 205 U/L (17-59); BLOOD UREA NITROGEN 12 mg/dl (9-20); CALCIUM 7.1 mg/dL (8.4-10.2); GFR NON-AFRICAN AMERICAN > 60; LIPASE 243 U/L (23-300)
[2018-08-19] MEDS: Sucralfate 1 gm/10 ml Oral Susp UD PO SCH ×2 (08:52→16:10)
[2018-08-19] MEDS: Albumin Human 25% (12.5 gm/50 ml) IV SCH ×3 (10:07→16:09)
--- NOTE | 2018-08-19 14:14 | CP.PCM.PN ---
Subjective - Date & Time of Evaluation Date of Evaluation: 08/19/18 Time of Evaluation: 14:13 - Subjective Subjective: Progress Note GI- Dr. Durand Patient seen and examined at bedside. No acute events overnight. no new complaints. Patient ambulating. This AM patient states he wants to shower. Currently t.bili and Liver enzymes trending down. Objective - Vital Signs/Intake and Output Vital Signs (last 24 hours): Temp Pulse Resp BP Pulse Ox 98.3 F 66 20 109/71 99 08/19/18 08:19 08/19/18 08:19 08/19/18 08:19 08/19/18 08:52 08/19/18 08:19 - Medications Medications: Current Medications Albumin Human (Albumin Human 25% (12.5 Gm/50 Ml)) 12.5 gm IV TID [facility] Last Admin: 08/19/18 13:05 Dose: 12.5 gm Famotidine (Pepcid) 20 mg PO BID PRN PRN Reason: abdominal Last Admin: 08/19/18 08:52 Dose: 20 mg Furosemide (Lasix) 40 mg PO DAILY [facility] Last Admin: 08/19/18 08:52 Dose: 40 mg Morphine Sulfate (Morphine) 2 mg IVP Q6 PRN PRN Reason: Pain, severe (8-10) Last Admin: 08/19/18 10:07 Dose: 2 mg Ondansetron HCl (Zofran Odt) 4 mg PO Q8 PRN PRN Reason: Nausea/Vomiting Spironolactone (Aldactone) 100 mg PO DAILY [facility] Last Admin: 08/19/18 08:52 Dose: 100 mg Sucralfate (Carafate Oral Susp) 1 gm PO BID [facility] Last Admin: 08/19/18 08:52 Dose: 1 gm - Labs Labs: 08/19/18 08:27 08/19/18 08:27 PT 14.3 Seconds (9.8-13.1) H 08/17/18 20:56 INR 1.3 08/17/18 20:56 APTT 29.7 Seconds (25.6-37.1) 08/17/18 20:56 - Constitutional Appears: Non-toxic, No Acute Distress - Head Exam Head Exam: ATRAUMATIC - Eye Exam Eye Exam: EOMI - ENT Exam ENT Exam: Mucous Membranes Moist - Respiratory Exam Respiratory Exam: NORMAL BREATHING PATTERN. absent: Accessory Muscle Use, Respiratory Distress - Cardiovascular Exam Cardiovascular Exam: +S1, +S2. absent: Bradycardia, Tachycardia - GI/Abdominal Exam GI & Abdominal Exam: Distended (baseline abdominal distention), Soft. absent: Firm, Guarding, Rigid, Tenderness - Extremities Exam Extremities Exam: absent: Calf Tenderness - Neurological Exam Neurological Exam: Alert, Awake, Oriented x3 - Skin Skin Exam: Dry, Warm Assessment and Plan - Assessment and Plan (Free Text) Assessment: 43M w/ transaminitis and hyperbilirubenima likely 2/2 EtOH liver cirrhosis Plan: - liver enzymes trending down - No acute intervention required at this time - likely ETOH Liver - recommend ceasing etoh intake - continue with Albumin - discussed w/ Dr. Ladarius Perez PGY2
--- NOTE | 2018-08-20 10:31 | PN ---
DATE: 08/20/2018 SUBJECTIVE: The patient seen and examined. Interim events noted. The patient remains in regular medical floor. The patient feels okay. Denies any chest pain or shortness of breath. Abdominal pain improved. PHYSICAL EXAMINATION: GENERAL The patient is in no acute distress. VITAL SIGNS: Stable. HEART: S1 and S2, normal, regular. LUNGS: Good bilateral air exchange. ABDOMEN: Soft, nontender. The patient has ascites, but it seems to be decreasing. Also, scrotal and abdominal wall edema seems to be little less. No sign of acute abdomen. No guarding. No rigidity. No rebound. Bowel sounds are present and normal. EXTREMITIES: No calf swelling. No tenderness. No acute ischemia. CENTRAL NERVOUS SYSTEM: Essentially unchanged. DIAGNOSTIC DATA: Available diagnostic data reviewed. ASSESSMENT AND PLAN: Overall, the patient's general medical condition is stable. Plan as ordered. Reinaldo Parnell MD
[2018-08-20] MEDS: Sucralfate 1 gm/10 ml Oral Susp UD PO SCH ×2 (10:49→17:52)
[2018-08-20] MEDS: Albumin Human 25% (12.5 gm/50 ml) IV SCH ×3 (10:50→18:04)
[2018-08-21] MEDS: Sucralfate 1 gm/10 ml Oral Susp UD PO SCH ×2 (08:33→16:26)
[2018-08-21] MEDS: Albumin Human 25% (12.5 gm/50 ml) IV SCH ×3 (08:36→16:25)
[2018-08-21 09:05] LABS: ALB/GLOB RATIO 0.6 (1.0-2.1); ALBUMIN 1.7 g/dL (3.5-5.0); ALT/SGPT 65 U/L (21-72); AST/SGOT 115 U/L (17-59); BLOOD UREA NITROGEN 9 mg/dl (9-20); CALCIUM 7.4 mg/dL (8.4-10.2); GFR NON-AFRICAN AMERICAN > 60
[2018-08-21 09:28] LABS: HEMOGLOBIN 11.1 g/dL (12.0-18.0); MEAN CELL VOLUME 102.5 fl (80.0-94.0); MEAN CORPUSCULAR HEMOGLOBIN 34.6 pg (27.0-31.0); MEAN CORPUSCULAR HGB CONC 33.7 g/dL (33.0-37.0); RBC 3.21 Mil/uL (4.40-5.90); WHITE BLOOD COUNT 4.9 K/uL (4.8-10.8)
--- NOTE | 2018-08-21 10:49 | PN ---
DATE: 08/21/2018 SUBJECTIVE: The patient seen and examined. Interim events noted. Consults noted and appreciated. Gastroenterology followup and intervention noted and appreciated. The patient complained of abdominal pain and telephone orders were given yesterday. Currently, the patient feels okay, slept very well, but still complains of abdominal pain. No new complaint of chest pain or shortness of breath. PHYSICAL EXAMINATION: GENERAL: The patient is in no acute distress. VITAL SIGNS: Stable. HEART: S1 and S2, normal, regular. LUNGS: Good bilateral air exchange. ABDOMEN: The patient has ascites and also edema, but this seems to be less than before. EXTREMITIES: No calf swelling. No tenderness. No acute ischemia. CENTRAL NERVOUS SYSTEM: Essentially unchanged. DIAGNOSTIC DATA: Available diagnostic data reviewed. ASSESSMENT AND PLAN: Overall, the patient is clinically stable. Plan as ordered. Reinaldo Parnell MD
[2018-08-21] MEDS: guaiFENesin DM 200 mg-20 mg/10 ml UD PO PRN ×2 (16:21→22:32)
--- NOTE | 2018-08-21 22:54 | CP.PCM.PN ---
Subjective - Date & Time of Evaluation Date of Evaluation: 08/21/18 Time of Evaluation: 22:52 - Subjective Subjective: Generally doing well. Abdminal swelling improving Objective - Vital Signs/Intake and Output Vital Signs (last 24 hours): Temp Pulse Resp BP Pulse Ox 98.8 F 80 18 123/63 99 08/21/18 16:44 08/21/18 22:30 08/21/18 16:44 08/21/18 22:30 08/21/18 16:44 - Medications Medications: Current Medications Acetaminophen (Tylenol 325mg Tab) 650 mg PO Q6 PRN PRN Reason: Pain, moderate (4-7) Carvedilol (Coreg) 3.125 mg PO Q12 [facility] Last Admin: 08/21/18 22:30 Dose: 3.125 mg Famotidine (Pepcid) 20 mg PO BID PRN PRN Reason: abdominal Last Admin: 08/21/18 08:34 Dose: 20 mg Furosemide (Lasix) 40 mg PO DAILY [facility] Last Admin: 08/21/18 08:34 Dose: 40 mg Guaifenesin/Dextromethorphan (Robitussin Dm) 10 ml PO TID PRN PRN Reason: Cough Last Admin: 08/21/18 22:32 Dose: 10 ml Morphine Sulfate (Morphine) 2 mg IVP Q6 PRN PRN Reason: Pain, severe (8-10) Last Admin: 08/20/18 10:46 Dose: 2 mg Ondansetron HCl (Zofran Odt) 4 mg PO Q8 PRN PRN Reason: Nausea/Vomiting Spironolactone (Aldactone) 100 mg PO DAILY [facility] Last Admin: 08/21/18 08:28 Dose: 100 mg Sucralfate (Carafate Oral Susp) 1 gm PO BID [facility] Last Admin: 08/21/18 16:26 Dose: 1 gm Tramadol HCl (Ultram) 50 mg PO BID PRN PRN Reason: Pain, moderate (4-7) Last Admin: 08/21/18 08:42 Dose: 50 mg - Labs Labs: 08/21/18 06:20 08/21/18 06:20 PT 14.3 Seconds (9.8-13.1) H 08/17/18 20:56 INR 1.3 08/17/18 20:56 APTT 29.7 Seconds (25.6-37.1) 08/17/18 20:56 - Head Exam Head Exam: ATRAUMATIC - Eye Exam Eye Exam: Normal appearance Pupil Exam: NORMAL ACCOMODATION - ENT Exam ENT Exam: TM's Normal Bilaterally - Neck Exam Neck Exam: Full ROM - Respiratory Exam Respiratory Exam: Clear to Ausculation Bilateral - Cardiovascular Exam Cardiovascular Exam: REGULAR RHYTHM - GI/Abdominal Exam GI & Abdominal Exam: Distended, Soft, Normal Bowel Sounds Assessment and Plan (1) Cirrhosis Assessment & Plan: Improving clinically. Continue diuretics/albumin Status: Acute
[2018-08-21 23:51] VITALS: RESP 20
[2018-08-22 06:36] LABS: HEMOGLOBIN 10.9 g/dL (12.0-18.0); MEAN CELL VOLUME 102.8 fl (80.0-94.0); MEAN CORPUSCULAR HEMOGLOBIN 34.6 pg (27.0-31.0); MEAN CORPUSCULAR HGB CONC 33.7 g/dL (33.0-37.0); RBC 3.16 Mil/uL (4.40-5.90); RED CELL DISTRIBUTION WIDTH 15.9 % (11.5-14.5); WHITE BLOOD COUNT 5.3 K/uL (4.8-10.8)
[2018-08-22 06:58] LABS: ALB/GLOB RATIO 0.7 (1.0-2.1); ALBUMIN 1.9 g/dL (3.5-5.0); ALT/SGPT 59 U/L (21-72); AST/SGOT 92 U/L (17-59); BLOOD UREA NITROGEN 8 mg/dl (9-20); CALCIUM 7.7 mg/dL (8.4-10.2); GFR NON-AFRICAN AMERICAN > 60
[2018-08-22 07:59] VITALS: BP 106/61; PULSE 69; TEMP 98.5; O2SAT 96
--- NOTE | 2018-08-22 08:32 | PN ---
DATE: 08/22/2018 SUBJECTIVE: The patient is seen and examined. Interim events noted. Consults noted and appreciated. The patient remains in regular medical floor. Feels much better. Abdominal pain improved. No chest pain or shortness of breath. PHYSICAL EXAMINATION: GENERAL: The patient is in no acute distress. VITAL SIGNS: Stable. HEART: S1, S2, normal and regular. LUNGS: Good bilateral air exchange. ABDOMEN: Soft, nontender. The patient has ascites, but abdominal wall edema and scrotal edema is much less now. EXTREMITIES: No edema, no calf swelling, no tenderness, no acute ischemia. CENTRAL NERVOUS SYSTEM: Essentially unchanged. DIAGNOSTIC DATA: Available diagnostic data reviewed. ASSESSMENT AND PLAN: Overall, the patient is clinically stable and improved. Plan as ordered. Reinaldo Parnell MD
[2018-08-22] MEDS: Sucralfate 1 gm/10 ml Oral Susp UD PO SCH (09:27)
--- NOTE | 2018-08-22 10:53 | CP.PCM.CON ---
History of Present Illness - History of Present Illness History of Present Illness: UROLOGY Pt seen for eval of hydrocele. He is in the midst of a bout of ascites secondary to liver disease. On admission he was severely swollen but could void Now he is under control and the scrotal swelling has completely resolved. No urologic inervention at this time Past Patient History - Infectious Disease Hx of Infectious Diseases: None - Past Medical History & Family History Past Medical History?: Yes - Past Social History Smoking Status: Smoker Currrent Status Unknown - CARDIAC Hx Hypertension: No - PULMONARY Hx Asthma: Yes - NEUROLOGICAL Hx Seizures: No - HEENT Hx HEENT Problems: No - RENAL Hx Chronic Kidney Disease: No - ENDOCRINE/METABOLIC Hx Endocrine Disorders: No - HEMATOLOGICAL/ONCOLOGICAL Hx Anemia: No (Denies) Hx Human Immunodeficiency Virus (HIV): No - INTEGUMENTARY Hx Dermatological Problems: No - MUSCULOSKELETAL/RHEUMATOLOGICAL Hx Musculoskeletal Disorders: No - GASTROINTESTINAL Hx Gall Bladder Disease: Yes - GENITOURINARY/GYNECOLOGICAL Hx Sexually Transmitted Disorders: No - PSYCHIATRIC Hx Psychophysiologic Disorder: Yes - SURGICAL HISTORY Hx Surgeries: No - ANESTHESIA Hx Anesthesia: No Meds Allergies/Adverse Reactions: Allergies Allergy/AdvReac Type Severity Reaction Status Date / Time No Known Allergies Allergy Verified 08/15/18 08:48 - Medications Medications: Current Medications Acetaminophen (Tylenol 325mg Tab) 650 mg PO Q6 PRN PRN Reason: Pain, moderate (4-7) Carvedilol (Coreg) 3.125 mg PO Q12 [facility] Last Admin: 08/22/18 09:27 Dose: 3.125 mg Famotidine (Pepcid) 20 mg PO BID PRN PRN Reason: abdominal Last Admin: 08/21/18 08:34 Dose: 20 mg Furosemide (Lasix) 40 mg PO DAILY [facility] Last Admin: 08/22/18 09:27 Dose: 40 mg Guaifenesin/Dextromethorphan (Robitussin Dm) 10 ml PO TID PRN PRN Reason: Cough Last Admin: 08/21/18 22:32 Dose: 10 ml Morphine Sulfate (Morphine) 2 mg IVP Q6 PRN PRN Reason: Pain, severe (8-10) Last Admin: 08/20/18 10:46 Dose: 2 mg Ondansetron HCl (Zofran Odt) 4 mg PO Q8 PRN PRN Reason: Nausea/Vomiting Spironolactone (Aldactone) 100 mg PO DAILY [facility] Last Admin: 08/22/18 09:27 Dose: 100 mg Sucralfate (Carafate Oral Susp) 1 gm PO BID [facility] Last Admin: 08/22/18 09:27 Dose: 1 gm Tramadol HCl (Ultram) 50 mg PO BID PRN PRN Reason: Pain, moderate (4-7) Last Admin: 08/21/18 08:42 Dose: 50 mg Results - Vital Signs Recent Vital Signs: Last Vital Signs Temp 98.5 F 08/22/18 09:00 Pulse 69 08/22/18 09:27 Resp 20 08/22/18 09:00 BP 106/61 08/22/18 09:27 Pulse Ox 96 08/22/18 09:00 - Labs Result Diagrams: 08/22/18 05:55 08/22/18 05:55 Labs: Laboratory Results - last 24 hr 08/22/18 08/22/18 05:55 05:55 WBC 5.3 RBC 3.16 L Hgb 10.9 L Hct 32.4 L MCV 102.8 H MCH 34.6 H MCHC 33.7 RDW 15.9 H Plt Count 62 L Sodium 135 Potassium 4.4 Chloride 109 H Carbon Dioxide 22 Anion Gap 8 L BUN 8 L Creatinine 0.7 L Est GFR ( Amer) > 60 Est GFR (Non-Af Amer) > 60 Random Glucose 91 Calcium 7.7 L Phosphorus 3.4 Magnesium 1.7 Total Bilirubin 1.6 H AST 92 H ALT 59 Alkaline Phosphatase 181 H Total Protein 4.5 L Albumin 1.9 L Globulin 2.6 Albumin/Globulin Ratio 0.7 L
--- NOTE | 2018-08-22 14:42 | PQF ---
PROVIDER RESPONSE TEXT: Low platelets and albumin secondary to chronic liver disease, cirrhosis, hepatitis, alcohol abuse REVIEWER QUERY TEXT: Clarification of Clinical Diagnostic Findings Please clarify if there are associated diagnoses or not to go along with the following lab findings: 1) Platelets 84-> 67. CBC being monitored 2) Albumin 1.6-> 1.3. Rx: Albumin ordered Please clarify documentation or clinical relevance for the clinical / diagnostic findings or whether those are insignificant or unable to be further specified. The patient's Clinical Indicators include: History of liver cirrhosis, chronic hepatitis C, alcohol abuse Query created by: Chaya Saldana on 08/19/2018 10:26 AM Electronically signed by: Reinaldo Parnell 08/22/2018 2:40 PM
--- NOTE | 2018-08-22 14:42 | PQF ---
PROVIDER RESPONSE TEXT: Liver cirrhosis secondary to alcohol use REVIEWER QUERY TEXT: Documentation Clarification Your help is requested in clarifying the following clinical documentation, if you can please further specify in the medical record and discharge summary. 1) Type/Etiology of Cirrhosis of the Liver 2) Do you concur with the additional diagnosis of Alcoholic Hepatitis documented by GI. If yes please document the diagnosis. The patient's Clinical Indicators include: GI note: 43 yo with h/o Liver cirrhosis and HCV presenting with pelvic ascites , anasarca, and elevat ed LFTs. LFT pattern most c/w alcoholic hepatitis. Albumin levels are extremely low. Agree with diuretics star jose c by Dr. Parnell. Will start on IV albumin. Patient would benefit for counselling to help with alcohol abuse. Rx: Diuretics, albumin Query created by: Chaya Saldana on 08/19/2018 10:22 AM Electronically signed by: Reinaldo Parnell 08/22/2018 2:40 PM
== END 2018-08-22 14:33 | disposition home or self-care (01) | DRG 202 ==
LOC: H.ER 19:32 → H.ERHOLD 23:08 → H.MEDSURG1 08-18 16:40
PROVIDERS: ADMIT Internal Medicine; ATTEND Internal Medicine
DX: K70.31 Alcoholic cirrhosis of liver with ascites (principal); B18.2 Chronic viral hepatitis C; K70.11 Alcoholic hepatitis with ascites; F10.10 Alcohol abuse, uncomplicated; N43.3 Hydrocele, unspecified; N50.89 Other specified disorders of the male genital organs; J45.909 Unspecified asthma, uncomplicated; Z23 Encounter for immunization

== ENCOUNTER 2018-11-07 19:04 | Inpatient (IN) | payer OTHER ==
[2018-11-07 19:05] VITALS: BMI 35.2
[2018-11-07] MEDS ORDERED: Sodium Chloride 0.9% 1,000 ML IV STA (20:31)
--- NOTE | 2018-11-07 20:35 | ED PDOC ---
HPI: Abdomen Time Seen by Provider: 11/07/18 20:19 Chief Complaint (Nursing): Abdominal Pain Chief Complaint (Provider): Abdominal Pain History Per: Patient History/Exam Limitations: no limitations Onset/Duration Of Symptoms: Days (x4) Current Symptoms Are (Timing): Still Present Additional Complaint(s): 43 y/o male with a PMHx of Asthma, Gall Bladder Disease, Peripheral Edema and Liver Cirrhosis due to Hepatitis C presents to the ED for evaluation of worsening abdominal pain, onset 4 days ago. Patient reports pain is associated with 4 episodes of rectal bleeding, decreased appetite, myalgia, back pain, headache and a cough. Patient additionally reports fever began two days ago. Patient states pain is similar to that of a couple of months ago. Patient notes he feels like his abdomen is "growing" Patient reports of taking all medications including Lasix as prescribed. Otherwise, patient denies nausea, vomiting, any history of HIV, abdominal surgeries and urinary symptoms. Of note, patient reports of having taken this year's flu vaccination. PMD: Reinaldo Parnell Past Medical History Reviewed: Historical Data, Nursing Documentation, Vital Signs Vital Signs: Last Vital Signs Temp 102.2 F H 11/07/18 19:11 Pulse 93 H 11/07/18 19:49 Resp 21 11/07/18 19:49 BP 119/62 11/07/18 19:49 Pulse Ox 100 11/07/18 19:49 - Medical History PMH: Asthma, Gall Bladder Disease, Hepatitis, Peripheral Edema Denies: Anemia (Denies), Diabetes, HIV, HTN, Chronic Kidney Disease, Seizures, Sexually Transmitted Disease - Surgical History Surgical History: No Surg Hx - Family History Family History: States: Unknown Family Hx - Immunization History Hx Tetanus Toxoid Vaccination: No Hx Influenza Vaccination: Yes Hx Pneumococcal Vaccination: No - Home Medications Home Medications: Ambulatory Orders Medication Instructions Recorded Famotidine [Pepcid] 20 mg PO BID PRN #15 tab 08/15/18 Ondansetron [Zofran Odt] 4 mg PO Q8 PRN #10 odt 08/15/18 Sucralfate [Carafate Oral Susp] 1 gm PO BID 08/18/18 Furosemide [Lasix] 40 mg PO DAILY #30 tablet 08/22/18 Spironolactone [Aldactone] 100 mg PO DAILY #30 tablet 08/22/18 - Allergies Allergies/Adverse Reactions: Allergies Allergy/AdvReac Type Severity Reaction Status Date / Time No Known Allergies Allergy Verified 08/15/18 08:48 Review of Systems ROS Statement: Except As Marked, All Systems Reviewed And Found Negative Constitutional: Positive for: Fever, Other ([place]AL[place]) Respiratory: Positive for: Cough Gastrointestinal: Positive for: Abdominal Pain, Rectal Pain (BLEEDING), Other (DECREASED APPETITE). Negative for: Nausea, Vomiting Musculoskeletal: Positive for: Back Pain Neurological: Positive for: Headache Physical Exam - Reviewed Nursing Documentation Reviewed: Yes Vital Signs Reviewed: Yes - Physical Exam Appears: Positive for: Uncomfortable, In Acute Distress Head Exam: Positive for: ATRAUMATIC, NORMOCEPHALIC Skin: Positive for: Normal Color, Warm, Dry Eye Exam: Positive for: Normal appearance, EOMI, PERRL ENT: Positive for: Normal ENT Inspection Neck: Positive for: Normal, Painless ROM Cardiovascular/Chest: Negative for: Bradycardia, Tachycardia Respiratory: Negative for: Accessory Muscle Use, Respiratory Distress Gastrointestinal/Abdominal: Positive for: Soft, Tenderness (Diffuse tenderness to palpiations ), Other (mild ascites ) Extremity: Positive for: Normal ROM Neurologic/Psych: Positive for: Alert, Oriented (x3). Negative for: Motor/Sensory Deficits - Laboratory Results Result Diagrams: 11/07/18 21:54 11/07/18 21:54 - ECG ECG: Positive for: Interpreted By Me, Viewed By Me ECG Rhythm: Positive for: Sinus Rhythm. Negative for: ST/T Changes Rate: 98 O2 Sat by Pulse Oximetry: 100 (RA) Pulse Ox Interpretation: Normal Medical Decision Making Medical Decision Making: Time: 1912 A/P: Acute abdominal infections and flu Rule Out Sepsis Plan: -- EKG Time: 2036 Plan: -- VBG -- CT Abd/Pelvis PO & IV Contrast -- EKG -- Alcohol Serum -- CMP -- Lipase -- Troponin I -- CBC with Differentials -- PTT -- Prothrombin time -- CXR Portable -- Morphine 2 mg IV -- Sodium Chloride 0.9% IV 1000 mls/hr -- Iohexol 50 ml PO -- Tylenol 650 mg PO -- Blood Culture -- Urine Culture -- Influenza A B -- Urinalysis CXR no acute infiltrate labs reviewed lactate elev 3.0 reveal marked elev lipase c/w pancreatitis WBC normal BUN normal Ca 6.7 Alb 1.7 INR normal Hgb normal thrombocytopenia UA blood no leuks flu negative Empiric Abx initiated for possible SBP Admit PMD Dr Parnell, requested Dr Malone GI consult Admit tele [phone] Abdomen/Pelvis CT Findings: COMMENTS: Cirrhosis, unchanged. Moderate splenomegaly, unchanged. Mesenteric congestion, edema. Unchanged. Ascites, moderate. Unchanged. Interval appearance of diffuse thickening of the colon. Mild multifocal edema of the small bowel, mildly increased. Probably secondary to portal hypertension, ascites and mesenteric edema. Prominent upper abdominal varicose veins. Unchanged. Diffuse thickening of the stomach, increased. There is no intra or extrahepatic biliary ductal dilatation. The spleen is normal. The gallbladder is within normal limits. The pancreas is of normal contour and attenuation characteristics. There is no evidence of adrenal mass. Both kidneys demonstrate prompt and equal nephrograms. The kidneys are normal in size, shape and configuration. There is no evidence of renal or ureteral mass. No renal or ureteral calculi are identified. There is no hydroureter or hydronephrosis. No evidence for appendicitis. No evidence for small or large bowel obstruction. There is no evidence of intrinsic or extrinsic bladder mass. Images of the lung bases show no evidence of pleural or parenchymal mass. There are no pleural effusions. The bony structures are free of lytic or blastic lesions. Grade 1 anterolisthesis of L5 on S1. IMPRESSION: Gastritis, not present on prior exam. Diffuse uncomplicated colitis, not present on prior exam. Cirrhosis, ascites and portal hypertension. Unchanged. Scribe Attestation: Documented by Edenilson Bell, acting as a scribe for Walker James III, DO. Provider Scribe Attestation: All medical record entries made by the Scribe were at my direction and personally dictated by me. I have reviewed the chart and agree that the record accurately reflects my personal performance of the history, physical exam, medical decision making, and the department course for this patient. I have also personally directed, reviewed, and agree with the discharge instructions and disposition. Disposition - Clinical Impression Clinical Impression: Severe sepsis, Alcohol dependence, Pancreatitis - Patient ED Disposition Is Patient to be Admitted: Yes Counseled Patient/Family Regarding: Studies Performed, Diagnosis, Need For Followup - Disposition Disposition Time: 22:30 Condition: GUARDED Forms: [place] (Citizen Of [place] - Pt Status Changed To: Hospital Disposition Of: Inpatient - Admit Certification Admit to Inpatient:: After my assessment, the patient will require hospitalization for at least two midnights. This is because of the severity of symptoms shown, intensity of services needed, and/or the medical risk in this patient being treated as an outpatient.
[2018-11-07] MEDS ORDERED: Iohexol 240 (50 ml) PO ONE (20:36)
[2018-11-07] MEDS ORDERED: Morphine 4 MG/ML VIAL ONE (20:56)
[2018-11-07 21:51] LABS: VENOUS BLOOD GAS BASE EXCESS -12.9 mmol/L (0.0-2.0); VENOUS BLOOD GAS PCO2 41 mmHg (40-60); VENOUS BLOOD GAS PO2 63 mm/Hg (30-55); VENOUS BLOOD PH 7.17 (7.32-7.43)
[2018-11-07 22:01] LABS: BASO % 0.5 % (0.0-2.0); EOS % 0.3 % (0.0-4.0); HEMOGLOBIN 12.2 g/dL (12.0-18.0); LYMPH # 0.7 K/uL (1.0-4.3); LYMPH % 11.5 % (20.0-40.0); MEAN CELL VOLUME 99.7 fl (80.0-94.0); MEAN CORPUSCULAR HEMOGLOBIN 33.8 pg (27.0-31.0); MEAN CORPUSCULAR HGB CONC 33.9 g/dL (33.0-37.0); MEAN PLATELET VOLUME 11.1 fl (7.2-11.7); MONO # 1.1 K/uL (0.0-0.8); MONO % 17.4 % (0.0-10.0); NEUT # 4.5 K/uL (1.8-7.0); NEUT % 70.3 % (50.0-75.0); NRBC % 0.1 % (0.0-0.0); RBC 3.59 Mil/uL (4.40-5.90); RED CELL DISTRIBUTION WIDTH 15.1 % (11.5-14.5); WHITE BLOOD COUNT 6.4 K/uL (4.8-10.8)
[2018-11-07 22:11] LABS: ALB/GLOB RATIO 0.5 (1.0-2.1); ALBUMIN 1.7 g/dL (3.5-5.0); ALT/SGPT 60 U/L (21-72); AST/SGOT 186 U/L (17-59); BLOOD UREA NITROGEN 12 mg/dl (9-20); CALCIUM 6.7 mg/dL (8.4-10.2); GFR NON-AFRICAN AMERICAN > 60
[2018-11-07 22:18] LABS: INR 1.3; PROTHROMBIN TIME 14.9 Seconds (9.8-13.1)
[2018-11-07 22:20] LABS: PARTIAL THROMBOPLASTIN TIME 33.4 Seconds (25.6-37.1)
[2018-11-07 22:38] LABS: URINE BACTERIA RARE (<OCC); URINE BILIRUBIN SMALL (NEGATIVE); URINE BLOOD LARGE (NEGATIVE); URINE CLARITY CLOUDY (Clear); URINE COLOR AMBER (YELLOW); URINE GLUCOSE (UA) NEG (NEGATIVE); URINE LEUKOCYTE ESTERASE NEG Leu/uL (Negative); URINE PROTEIN 100 mg/dL (NEGATIVE)
[2018-11-07 22:55] LABS: LIPASE 15865 U/L (23-300)
[2018-11-07] MEDS ORDERED: Iohexol 300 100 ML IJ ONE (23:07)
[2018-11-07] MEDS ORDERED: Sodium Chloride 0.9% 50 ML IV ONE (23:08)
[2018-11-07] MEDS ORDERED: Piperacillin/Tazobact 4.5 GM in Sodium Chloride 0.9% 100 ML IVPB STA (23:16)
[2018-11-07 23:28] LABS: VENOUS BLOOD GAS BASE EXCESS -5.5 mmol/L (0.0-2.0); VENOUS BLOOD GAS PCO2 24 mmHg (40-60); VENOUS BLOOD GAS PO2 71 mm/Hg (30-55); VENOUS BLOOD PH 7.45 (7.32-7.43)
[2018-11-07] MEDS: Lactated Ringer's 1,000 ML IV SCH ×2 (23:41→23:53)
[2018-11-08] MEDS ORDERED: Morphine 4 MG/ML VIAL IV STA (00:02)
[2018-11-08] MEDS ORDERED: Morphine 4 MG/ML VIAL ONE ×2 (00:11→03:36)
[2018-11-08] MEDS: Lactated Ringer's 1,000 ML IV SCH ×6 (01:20→21:51)
[2018-11-08] MEDS ORDERED: Vancomycin 1 g Inj ONE (03:26)
[2018-11-08] MEDS ORDERED: Morphine 4 MG/ML VIAL IVP ONE (03:28)
--- NOTE | 2018-11-08 06:53 | CP.PCM.HP ---
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 Patient reports 4 days hx of worsening mid upper abdominal pain associated with 2 days hx of diarrhea (one bloody BM) and fever at home. Pain is constant, 10/10, sharp, radiating to back and anterior lower midline, reports no nausea, vomiting or dysuria. Patient reports he was binge drinking on Wednesday while watching [employer]. Patient also reports a week hx of cough, headache and occasional SOB. Denies any chest pain, Lower extremities pain or weakness. PMD: Dr. 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 Diffuse uncomplicated colitis, not present on prior exam. Cirrhosis, ascites and portal hypertension. Unchanged. Present on Admission - Present on Admission Any Indicators Present on Admission: No Review of Systems - Constitutional Constitutional: Anorexia, Fever, Malaise - EENT Eyes: absent: Blurred Vision Ears: absent: Decreased Hearing Nose/Mouth/Throat: absent: Nasal Congestion, Sinus Pressure - Cardiovascular Cardiovascular: absent: Chest Pain, Pain Radiating to Arm/Neck/Jaw - Respiratory Respiratory: Cough. absent: Dyspnea, Hemoptysis, Dyspnea on Exertion - Gastrointestinal Gastrointestinal: Abdominal Pain, Cramping, Diarrhea. absent: Vomiting - Genitourinary Genitourinary: absent: Change in Urinary Stream, Dysuria, Hematuria - Musculoskeletal Musculoskeletal: absent: Abnormal Gait - Neurological Neurological: absent: Abnormal Gait Past Patient History - Infectious Disease Hx of Infectious Diseases: None - Past Medical History & Family History Past Medical History?: Yes - Past Social History Smoking Status: Heavy Smoker > 10 Cigarettes Daily - CARDIAC Hx Cardiac Disorders: No Hx Hypertension: No Hx Peripheral Edema: Yes - PULMONARY Hx Respiratory Disorders: Yes Hx Asthma: Yes - NEUROLOGICAL Hx Neurological Disorder: No Hx Seizures: No - HEENT Hx HEENT Problems: No - RENAL Hx Chronic Kidney Disease: No - ENDOCRINE/METABOLIC Hx Endocrine Disorders: No - HEMATOLOGICAL/ONCOLOGICAL Hx Blood Disorders: Yes Hx AIDS: No Hx Anemia: Yes Hx Blood Transfusions: Yes Hx Blood Transfusion Reaction: No Hx Human Immunodeficiency Virus (HIV): No - INTEGUMENTARY Hx Dermatological Problems: No - MUSCULOSKELETAL/RHEUMATOLOGICAL Hx Musculoskeletal Disorders: Yes Hx Falls: No - GASTROINTESTINAL Hx Gastrointestinal Disorders: Yes Hx Diarrhea: Yes Hx Gall Bladder Disease: Yes Hx Gastritis: Yes Hx Pancreatitis: Yes - GENITOURINARY/GYNECOLOGICAL Hx Genitourinary Disorders: No Hx Sexually Transmitted Disorders: No - PSYCHIATRIC Hx Psychophysiologic Disorder: Yes Hx Anxiety: Yes Hx Substance Use: Yes (lat use 2000-heroine,cocaine) - SURGICAL HISTORY Hx Surgeries: No - ANESTHESIA Hx Anesthesia: Yes Hx Anesthesia Reactions: No Hx Malignant Hyperthermia: No Has any member of the family had a problem w/ anesthesia?: No Meds Allergies/Adverse Reactions: Allergies Allergy/AdvReac Type Severity Reaction Status Date / Time No Known Allergies Allergy Verified 08/15/18 08:48 Physical Exam - Constitutional Appears: No Acute Distress - Head Exam Head Exam: NORMAL INSPECTION - Eye Exam Eye Exam: EOMI, Normal appearance Pupil Exam: NORMAL ACCOMODATION - ENT Exam ENT Exam: Mucous Membranes Moist - Neck Exam Neck exam: Positive for: Normal Inspection - Respiratory Exam Respiratory Exam: Clear to Auscultation Bilateral, NORMAL BREATHING PATTERN. absent: Rhonchi, Wheezes, Respiratory Distress - Cardiovascular Exam Cardiovascular Exam: REGULAR RHYTHM, +S1, +S2 - GI/Abdominal Exam GI & Abdominal Exam: Distended, Normal Bowel Sounds, Soft, Tenderness (Epigastric ). absent: Guarding, Rebound - Extremities Exam Extremities exam: Positive for: normal inspection. Negative for: joint swelling, tenderness - Back Exam Back exam: absent: CVA tenderness (L), CVA tenderness (R) - Neurological Exam Neurological exam: Alert, CN II-XII Intact, Oriented x3 - Psychiatric Exam Psychiatric exam: Normal Affect - Skin Skin Exam: Normal Color Results - Vital Signs Recent Vital Signs: Last Vital Signs Temp 100.3 F H 11/08/18 06:10 Pulse 87 11/08/18 06:10 Resp 23 11/08/18 06:10 BP 118/53 L 11/08/18 06:10 Pulse Ox 100 11/08/18 06:10 - Labs Result Diagrams: 11/08/18 08:20 11/08/18 08:20 Labs: Laboratory Results - last 24 hr 11/07/18 11/07/18 11/07/18 20:23 21:54 21:54 WBC 6.4 RBC 3.59 L Hgb 12.2 Hct 35.8 MCV 99.7 H D MCH 33.8 H MCHC 33.9 RDW 15.1 H Plt Count 59 L MPV 11.1 Neut % (Auto) 70.3 Lymph % (Auto) 11.5 L Jones % (Auto) 17.4 H Eos % (Auto) 0.3 Baso % (Auto) 0.5 Neut # (Auto) 4.5 Lymph # (Auto) 0.7 L Jones # (Auto) 1.1 H Eos # (Auto) 0.0 Baso # (Auto) 0.0 PT INR APTT pO2 63 H VBG pH 7.17 L* VBG pCO2 41 VBG HCO3 14.6 VBG Total CO2 16.3 L VBG O2 Sat (Calc) 92.4 H VBG Base Excess -12.9 L VBG Potassium > 20.0 H* Sodium 120.0 L* 131 L Chloride 104.0 102 Glucose 149 H Lactate 3.0 H FiO2 21.0 Crit Value Called To Dr stephon benito Crit Value Called By 15 Crit Value Read Back Y Blood Gas Notified Time 2150 Potassium 3.5 L Carbon Dioxide 18 L Anion Gap 15 BUN 12 Creatinine 0.7 L Est GFR ( Amer) > 60 Est GFR (Non-Af Amer) > 60 Random Glucose 147 H Calcium 6.7 L Total Bilirubin 1.3 AST 186 H D ALT 60 Alkaline Phosphatase 227 H D Troponin I 0.0260 Total Protein 5.0 L Albumin 1.7 L Globulin 3.2 Albumin/Globulin Ratio 0.5 L Lipase 09488 H Venous Blood Potassium > 20.0 H* Urine Color Urine Clarity Urine pH Ur Specific [place] Urine Protein Urine Glucose (UA) Urine Ketones Urine Blood Urine Nitrate Urine Bilirubin Urine Urobilinogen Ur Leukocyte Esterase Urine RBC (Auto) Urine Microscopic WBC Urine Bacteria Alcohol, Quantitative 77 H Influenza Typ A,B (EIA) 11/07/18 11/07/18 11/07/18 21:54 22:15 22:15 WBC RBC Hgb Hct MCV MCH MCHC RDW Plt Count MPV Neut % (Auto) Lymph % (Auto) Jones % (Auto) Eos % (Auto) Baso % (Auto) Neut # (Auto) Lymph # (Auto) Jones # (Auto) Eos # (Auto) Baso # (Auto) PT 14.9 H INR 1.3 APTT 33.4 pO2 VBG pH VBG pCO2 VBG HCO3 VBG Total CO2 VBG O2 Sat (Calc) VBG Base Excess VBG Potassium Sodium Chloride Glucose Lactate FiO2 Crit Value Called To Crit Value Called By Crit Value Read Back Blood Gas Notified Time Potassium Carbon Dioxide Anion Gap BUN Creatinine Est GFR ( Amer) Est GFR (Non-Af Amer) Random Glucose Calcium Total Bilirubin AST ALT Alkaline Phosphatase Troponin I Total Protein Albumin Globulin Albumin/Globulin Ratio Lipase Venous Blood Potassium Urine Color Jessica Urine Clarity Cloudy Urine pH 6.0 Ur Specific [place] 1.029 Urine Protein 100 Urine Glucose (UA) Neg Urine Ketones Negative Urine Blood Large Urine Nitrate Negative Urine Bilirubin Small Urine Urobilinogen 1.0 Ur Leukocyte Esterase Neg Urine RBC (Auto) 77 H Urine Microscopic WBC 5 Urine Bacteria Rare Alcohol, Quantitative Influenza Typ A,B (EIA) Negative for flu a/b 11/07/18 23:25 WBC RBC Hgb Hct MCV MCH MCHC RDW Plt Count MPV Neut % (Auto) Lymph % (Auto) Jones % (Auto) Eos % (Auto) Baso % (Auto) Neut # (Auto) Lymph # (Auto) Jones # (Auto) Eos # (Auto) Baso # (Auto) PT INR APTT pO2 71 H VBG pH 7.45 H VBG pCO2 24 L VBG HCO3 20.6 VBG Total CO2 17.4 L VBG O2 Sat (Calc) 98.6 H VBG Base Excess -5.5 L VBG Potassium 2.9 L Sodium 128.0 L Chloride 107.0 Glucose 115 H Lactate 2.3 H FiO2 21.0 Crit Value Called To Crit Value Called By Crit Value Read Back Blood Gas Notified Time Potassium Carbon Dioxide Anion Gap BUN Creatinine Est GFR ( Amer) Est GFR (Non-Af Amer) Random Glucose Calcium Total Bilirubin AST ALT Alkaline Phosphatase Troponin I Total Protein Albumin Globulin Albumin/Globulin Ratio Lipase Venous Blood Potassium 2.9 L Urine Color Urine Clarity Urine pH Ur Specific [place] Urine Protein Urine Glucose (UA) Urine Ketones Urine Blood Urine Nitrate Urine Bilirubin Urine Urobilinogen Ur Leukocyte Esterase Urine RBC (Auto) Urine Microscopic WBC Urine Bacteria Alcohol, Quantitative Influenza Typ A,B (EIA) Assessment & Plan - Assessment and Plan (Free Text) Assessment: A/P: 43 y/o male with PMH of Liver Cirrhosis due to Hep C and alcohol use and asthma admitted to [facility] for sepsis/pancreatitis. Acute Pancreatitis, likely due to alcohol abuse - Elevated lipase - GI consult, follow up recommendations - F/u lipase and blood work - NPO - C/w fluids - Will hold Lasix for now Sepsis, likely due to pancreatitis vs SBP - S/p Abx - C/w fluids - Improved lactic acid - Consider Abx, f/u with GI Alcohol abuse/Withdrawal - [facility] protocol - Ativan PRN - Thiamin and Folic acid Low albumin - Replete as needed - F/u with GI DVT PPX: SCD for now GI PPX: Protonix Case discussed with Dr. Parnell <Reinaldo Parnell - Last Filed: 11/10/18 10:34> Results - Vital Signs Recent Vital Signs: Last Vital Signs Temp 98.5 F 11/10/18 08:00 Pulse 86 11/10/18 08:00 Resp 18 11/10/18 08:00 BP 101/62 11/10/18 10:12 Pulse Ox 99 11/10/18 08:00 - Labs Result Diagrams: 11/10/18 04:40 11/10/18 04:40 Labs: Laboratory Results - last 24 hr 11/10/18 11/10/18 04:40 04:40 WBC 4.9 RBC 3.27 L Hgb 11.2 L Hct 33.0 L MCV 100.8 H MCH 34.3 H MCHC 34.0 RDW 16.0 H Plt Count 78 L MPV 10.7 Neut % (Auto) 66.6 Lymph % (Auto) 13.0 L Jones % (Auto) 16.2 H Eos % (Auto) 3.5 Baso % (Auto) 0.7 Neut # (Auto) 3.3 Lymph # (Auto) 0.6 L Jones # (Auto) 0.8 Eos # (Auto) 0.2 Baso # (Auto) 0.0 Sodium 132 Potassium 3.6 Chloride 104 Carbon Dioxide 23 Anion Gap 9 L BUN 8 L Creatinine 0.7 L Est GFR ( Amer) > 60 Est GFR (Non-Af Amer) > 60 Random Glucose 95 Calcium 6.9 L Total Bilirubin 1.4 H AST 144 H ALT 55 Alkaline Phosphatase 239 H D Total Protein 4.6 L Albumin 1.6 L Globulin 3.0 Albumin/Globulin Ratio 0.5 L Lipase 9381 H Assessment & Plan - Assessment and Plan (Free Text) Assessment: Patient was personally seen and examined by me in rounds with residents. Available labs and diagnostic data reviewed. Case, Patient's condition and management plan discussed with residents in rounds. Agree with resident's progress note. Plan: As ordered.
[2018-11-08] MEDS ORDERED: Thiamine 100 mg/ml Inj IM ONE (07:04)
[2018-11-08] MEDS ORDERED: Morphine 4 MG/ML VIAL IVP PRN ×2 (07:16)
[2018-11-08] MEDS ORDERED: Albumin Human 25% (12.5 gm/50 ml) IV ONE (07:45)
[2018-11-08 08:31] LABS: BASO % 0.4 % (0.0-2.0); EOS # 0.1 K/uL (0.0-0.7); EOS % 1.3 % (0.0-4.0); HEMOGLOBIN 11.9 g/dL (12.0-18.0); LYMPH # 0.6 K/uL (1.0-4.3); LYMPH % 9.8 % (20.0-40.0); MEAN CELL VOLUME 99.2 fl (80.0-94.0); MEAN CORPUSCULAR HEMOGLOBIN 34.3 pg (27.0-31.0); MEAN CORPUSCULAR HGB CONC 34.6 g/dL (33.0-37.0); MEAN PLATELET VOLUME 11.6 fl (7.2-11.7); MONO # 1.3 K/uL (0.0-0.8); MONO % 19.1 % (0.0-10.0); NEUT # 4.6 K/uL (1.8-7.0); NEUT % 69.4 % (50.0-75.0); NRBC % 0.1 % (0.0-0.0); PLATELET COUNT 70 K/uL (130-400); RBC 3.46 Mil/uL (4.40-5.90); RED CELL DISTRIBUTION WIDTH 15.6 % (11.5-14.5); WHITE BLOOD COUNT 6.6 K/uL (4.8-10.8)
[2018-11-08 08:39] LABS: ALB/GLOB RATIO 0.5 (1.0-2.1); ALBUMIN 1.7 g/dL (3.5-5.0); ALT/SGPT 57 U/L (21-72); AMYLASE 662 U/L (30-110); AST/SGOT 171 U/L (17-59); BLOOD UREA NITROGEN 11 mg/dl (9-20); CALCIUM 6.6 mg/dL (8.4-10.2); GFR NON-AFRICAN AMERICAN > 60; HDL CHOLESTEROL 14 MG/DL (30-70)
--- NOTE | 2018-11-08 08:39 | RAD ---
Date of service: 11/07/2018 HISTORY: fever COMPARISON: Chest radiographs 08/17/2018. FINDINGS: LUNGS: Diminished inspiratory volume compared to prior chest 08/17/2018. Nevertheless, no acute in consolidation identified bilaterally. PLEURA: No significant pleural effusion identified, no pneumothorax apparent. CARDIOVASCULAR: No aortic atherosclerotic calcification present. Normal cardiac size. No pulmonary vascular congestion. OSSEOUS STRUCTURES: No significant abnormalities. VISUALIZED UPPER ABDOMEN: Normal. OTHER FINDINGS: None. IMPRESSION: No acute consolidation, pleural effusion, pneumothorax or pulmonary vascular congestion. Diminished inspiratory volume demonstrated.
[2018-11-08 08:50] LABS: LDL CHOLESTEROL 36 mg/dL (0-129)
[2018-11-08 10:03] LABS: LIPASE 9773 U/L (23-300)
--- NOTE | 2018-11-08 11:00 | CT ---
Date of service: 11/07/2018 PROCEDURE: CT Abdomen and Pelvis with contrast HISTORY: fever, abd pain, rectal bleeding, cirrhosis COMPARISON: 08/17/2018. TECHNIQUE: CT scan of the abdomen and pelvis was performed after administration of intravenous contrast. Oral contrast was administered. Coronal and sagittal reformatted images were obtained. Contrast dose: 90 mL Omnipaque 300 Radiation dose: Total exam DLP = 753.39 mGy-cm. This CT exam was performed using one or more of the following dose reduction techniques: Automated exposure control, adjustment of the mA and/or kV according to patient size, and/or use of iterative reconstruction technique. FINDINGS: LOWER THORAX: There is a peripheral subcentimeter calcified granuloma in the left upper lobe. Otherwise, the visualized lungs are clear. LIVER: Nodular cirrhotic liver. No gross lesion or ductal dilatation. GALLBLADDER AND BILE DUCTS: Well distended. No calcified gallstones, wall thickening or pericholecystic fluid. PANCREAS: Normal in size with homogeneous enhancement. No gross lesion or ductal dilatation. SPLEEN: Mild splenomegaly. Homogeneous enhancement ADRENALS: No discrete nodule. KIDNEYS AND URETERS: Normal in size with homogeneous enhancement. No hydronephrosis. No solid mass. VASCULATURE: No aortic aneurysm. There are no aortic atherosclerotic calcifications or mural plaque present. There recanalization of the umbilical vein and extensive portosystemic varices including splenorenal and perisplenic. Extensive dilated venous collateral also drain into the right external iliac vein. BOWEL: There is apparent moderate circumferential mural thickening in the stomach most conspicuous in the gastric cardia. The small bowel loops are normal in caliber. There is severe diffuse circumferential mural thickening in the colon. No bowel wall dilatation or obstruction. APPENDIX: Normal appendix. PERITONEUM: Small abdominal and pelvic ascites. No free air. LYMPH NODES: No enlarged lymph nodes. BLADDER: Well distended and normal in appearance. REPRODUCTIVE: The uterus is normal in size. BONES: Bilateral pars interarticularis defect at L5 with grade 1 anterior listhesis of L5 on S1 and desiccation of the L5-S1 disc with vacuum phenomenon. OTHER FINDINGS: None. IMPRESSION: 1. Severe diffuse circumferential mural thickening the in the colon most compatible with acute nonspecific infectious/inflammatory pancolitis. No evidence for bowel dilatation or obstruction. 2. Redemonstration of cirrhosis of liver with portal hypertension, mild splenomegaly, extensive portosystemic varices and small abdominal and pelvic ascites. 3. Apparent circumferential mural thickening in the stomach a most conspicuous in the gastric cardia is nonspecific and could be related to underdistention however nonspecific gastritis is also a consideration. Clinical follow-up is advised. A preliminary report was provided by [employer].
--- NOTE | 2018-11-08 12:34 | CARD ---
APPROVED REPORT Date of service: 11/07/2018 EKG Measurement Heart [id number] <Conclusion> Normal sinus rhythm Normal ECG
[2018-11-08 12:35] LABS: ANISOCYTOSIS SLIGHT; BANDS 4 % (0-2); EOSINOPHIL 2 % (0-7); LYMPHOCYTE 5 % (20-50); MONOCYTE 16 % (0-10); NEUTROPHIL 73 % (42-75); PLATELET ESTIMATE DECREASED (NORMAL); TOTAL CELLS COUNTED 100
[2018-11-08 12:36] LABS: HYPOCHROMIC SLIGHT; OVALOCYTES SLIGHT; TEARDROP CELLS SLIGHT
--- NOTE | 2018-11-09 00:24 | CON ---
DATE: 11/08/2018 REFERRING PHYSICIAN: Reinaldo Parnell MD REASON FOR CONSULTATION: Pancreatitis. HISTORY OF PRESENT ILLNESS: This is a 43-year-old man with a history of hepatitis C, cirrhosis and alcohol use. He was drinking on Wednesday for which he had abdominal pain and discomfort, now pancreatitis for which he was admitted. Currently, he is asking for food. The pain is improved, but still taking pain medication. Lying in bed comfortable, in no apparent distress. PAST MEDICAL HISTORY: As above. PAST SURGICAL HISTORY: As above. MEDICATIONS: Reviewed. REVIEW OF SYSTEMS: All other systems have been reviewed and negative apart from the HPI. PHYSICAL EXAMINATION: GENERAL: This is a pleasant middle-aged man, lying in bed comfortably, in no apparent distress. VITAL SIGNS: Here in the hospital, grossly unremarkable. HEENT: Head: Normocephalic and atraumatic. Eyes: Pupils are equally reactive to light bilaterally. No conjunctival pallor or icterus. NECK: Supple. Normal range of motion. No lymphadenopathy appreciated. LUNGS: Coarse breath sounds bilaterally. HEART: S1 and S2. Regular rate and rhythm. ABDOMEN: Soft. Distended. Bowel sounds present. Discomfort in the epigastric region. No rebound. No guarding. RECTAL: Deferred. EXTREMITIES: Pulses felt bilaterally. SKIN: Warm, dry, and intact. NEUROLOGIC: A and O x3. LABORATORY DATA: Labs and radiology have been reviewed. CAT scan shows severe mural thickening of the colon and colitis as well as specifically in the stomach, cirrhosis, portal hypertension. Labs showed WBC of 6.2, hemoglobin 9.9, hematocrit 30.5, and platelet count is 70. INR is 1.3. Sodium 130. Total bili 1.7. Lipase was 15,000, now it is down to 9000, changed. ASSESSMENT AND PLAN: This is a 43-year-old male with alcoholic pancreatitis. antibiotics, pain control. Clear liquid diet from now. Thank you for the consult. Walker Malone MD/ PhD cc: Reinaldo Parnell MD
[2018-11-09] MEDS: Lactated Ringer's 1,000 ML IV SCH ×3 (02:36→17:21)
[2018-11-09 06:12] LABS: ALB/GLOB RATIO 0.5 (1.0-2.1); ALBUMIN 1.6 g/dL (3.5-5.0); ALT/SGPT 53 U/L (21-72); AST/SGOT 158 U/L (17-59); BLOOD UREA NITROGEN 10 mg/dl (9-20); CALCIUM 6.9 mg/dL (8.4-10.2); GFR NON-AFRICAN AMERICAN > 60
[2018-11-09 06:50] LABS: LIPASE 7710 U/L (23-300)
[2018-11-09] MEDS ORDERED: Morphine 4 MG/ML VIAL IVP PRN (07:15)
[2018-11-09] MEDS ORDERED: Potassium Chloride 20 mEq ER Tab PO ONE (07:15)
--- NOTE | 2018-11-09 08:15 | CP.PCM.PN ---
<Jack Fernandez - Last Filed: 11/09/18 08:21> Subjective - Date & Time of Evaluation Date of Evaluation: 11/09/18 Time of Evaluation: 07:15 - Subjective Subjective: Patient was seen and examined with Dr. Parnell at bedside. NAD, moving around, denies any abdominal pain, tolerating PO diet, afebrile overnight. Objective - Vital Signs/Intake and Output Vital Signs (last 24 hours): Temp Pulse Resp BP Pulse Ox 99.7 F H 86 16 116/64 96 11/09/18 05:00 11/09/18 05:00 11/09/18 05:00 11/09/18 05:00 11/09/18 05:00 - Medications Medications: Current Medications Acetaminophen (Tylenol 325mg Tab) 650 mg PO PRN PRN PRN Reason: Fever >100.4 F Last Admin: 11/08/18 17:50 Dose: 650 mg Hydromorphone HCl (Dilaudid) 0.5 mg IVP Q4 PRN PRN Reason: Pain, moderate (4-7) Lactated Ringer's (Lactated Ringer's) 1,000 mls @ 250 mls/hr IV .Q4H [facility] Last Admin: 11/09/18 06:51 Dose: 250 mls/hr Folic Acid 1 mg/ Sodium (Chloride) 100.2 mls @ 60 mls/hr IVPB DAILY [facility] Last Admin: 11/08/18 10:38 Dose: 60 mls/hr Lorazepam (Ativan) 1 mg IVP PRN PRN PRN Reason: Agitation Morphine Sulfate (Morphine) 2 mg IVP Q6 PRN PRN Reason: Pain, moderate (4-7) Ondansetron HCl (Zofran Inj) 4 mg IVP Q6 PRN PRN Reason: Nausea/Vomiting Pantoprazole Sodium (Protonix Inj) 40 mg IVP DAILY [facility] Last Admin: 11/08/18 08:38 Dose: 40 mg - Labs Labs: 11/08/18 08:20 11/09/18 04:15 PT 14.9 Seconds (9.8-13.1) H 11/07/18 21:54 INR 1.3 11/07/18 21:54 APTT 33.4 Seconds (25.6-37.1) 11/07/18 21:54 - Constitutional Appears: No Acute Distress - Head Exam Head Exam: NORMAL INSPECTION - Eye Exam Eye Exam: EOMI, Normal appearance, PERRL - ENT Exam ENT Exam: Mucous Membranes Moist - Neck Exam Neck Exam: Normal Inspection - Respiratory Exam Respiratory Exam: Clear to Ausculation Bilateral, NORMAL BREATHING PATTERN. absent: Wheezes, Respiratory Distress, Stridor - Cardiovascular Exam Cardiovascular Exam: REGULAR RHYTHM, +S1, +S2 - GI/Abdominal Exam GI & Abdominal Exam: Soft, Tenderness (minimum ), Normal Bowel Sounds. absent: Guarding, Rigid - Extremities Exam Extremities Exam: Normal Capillary Refill, Normal Inspection - Back Exam Back Exam: NORMAL INSPECTION. absent: CVA tenderness (L), CVA tenderness (R) - Neurological Exam Neurological Exam: Alert, Awake, Normal Gait, Oriented x3 - Psychiatric Exam Psychiatric exam: Normal Affect - Skin Skin Exam: Normal Color Assessment and Plan - Assessment and Plan (Free Text) Assessment: A/P: 43 y/o male with PMH of Liver Cirrhosis due to Hep C and alcohol use and asthma admitted to [facility] for sepsis/pancreatitis. Acute Pancreatitis, likely due to alcohol abuse - Elevated lipase, trending down - GI consult, recommendations appreciated - Advance diet as tolerated - C/w fluids Sepsis, likely due to pancreatitis vs SBP - Improved - S/p Abx in ER - C/w fluids - Improved lactic acid - C/w Zosyn Day #1 Alcohol abuse/Withdrawal - [facility] protocol - Ativan PRN - Thiamin and Folic acid Low albumin - Replete as needed - F/u with GI DVT PPX: SCD for now GI PPX: Pepcid Case discussed with Dr. Parnell <Reinaldo Parnell - Last Filed: 11/10/18 10:33> Objective - Vital Signs/Intake and Output Vital Signs (last 24 hours): Temp Pulse Resp BP Pulse Ox 98.5 F 86 18 101/62 99 11/10/18 08:00 11/10/18 08:00 11/10/18 08:00 11/10/18 10:12 11/10/18 08:00 Intake and Output: 11/09/18 11/10/18 23:59 11:59 Intake Total 4100 Balance 4100 - Medications Medications: Current Medications Acetaminophen (Tylenol 325mg Tab) 650 mg PO PRN PRN PRN Reason: Fever >100.4 F Last Admin: 11/08/18 17:50 Dose: 650 mg Famotidine (Pepcid) 20 mg PO BID PRN PRN Reason: abdominal Furosemide (Lasix) 40 mg PO DAILY [facility] Last Admin: 11/10/18 10:12 Dose: 40 mg Hydromorphone HCl (Dilaudid) 0.5 mg IVP Q4 PRN PRN Reason: Pain, moderate (4-7) Folic Acid 1 mg/ Sodium (Chloride) 100.2 mls @ 60 mls/hr IVPB DAILY [facility] Last Admin: 11/10/18 10:10 Dose: 60 mls/hr Piperacillin Sod/Tazobactam (Sod 3.375 gm/ Sodium Chloride) 100 mls @ 100 mls/hr IVPB Q12 [facility]; Protocol Last Admin: 11/09/18 21:39 Dose: 100 mls/hr Lorazepam (Ativan) 1 mg IVP PRN PRN PRN Reason: Agitation Morphine Sulfate (Morphine) 2 mg IVP Q6 PRN PRN Reason: Pain, moderate (4-7) Nitrofurantoin Macrocrystals (Macrobid) 100 mg PO Q12 [facility]; Protocol Last Admin: 11/10/18 10:12 Dose: 100 mg Ondansetron HCl (Zofran Inj) 4 mg IVP Q6 PRN PRN Reason: Nausea/Vomiting Spironolactone (Aldactone) 100 mg PO DAILY [facility] Last Admin: 11/10/18 10:10 Dose: 100 mg Sucralfate (Carafate Oral Susp) 1 gm PO BID [facility] Last Admin: 11/10/18 10:10 Dose: 1 gm - Labs Labs: 11/10/18 04:40 11/10/18 04:40 PT 14.9 Seconds (9.8-13.1) H 11/07/18 21:54 INR 1.3 11/07/18 21:54 APTT 33.4 Seconds (25.6-37.1) 11/07/18 21:54 Assessment and Plan - Assessment and Plan (Free Text) Assessment: Patient was personally seen and examined by me in rounds with residents. Available labs and diagnostic data reviewed. Case, Patient's condition and management plan discussed with residents in rounds. Agree with resident's progress note. Plan: As ordered.
[2018-11-09] MEDS: Piperacillin/Tazobact 3.375 GM in Sodium Chloride 0.9% 100 ML IVPB SCH ×2 (10:46→21:39)
[2018-11-09] MEDS: Sucralfate 1 gm/10 ml Oral Susp UD PO SCH ×2 (11:02→17:21)
[2018-11-10] MEDS: Lactated Ringer's 1,000 ML IV SCH ×4 (00:04→13:05)
[2018-11-10 05:27] LABS: BASO % 0.7 % (0.0-2.0); EOS # 0.2 K/uL (0.0-0.7); EOS % 3.5 % (0.0-4.0); HEMOGLOBIN 11.2 g/dL (12.0-18.0); LYMPH # 0.6 K/uL (1.0-4.3); MEAN CELL VOLUME 100.8 fl (80.0-94.0); MEAN CORPUSCULAR HEMOGLOBIN 34.3 pg (27.0-31.0); MEAN PLATELET VOLUME 10.7 fl (7.2-11.7); MONO # 0.8 K/uL (0.0-0.8); MONO % 16.2 % (0.0-10.0); NEUT # 3.3 K/uL (1.8-7.0); NEUT % 66.6 % (50.0-75.0); NRBC % 0.2 % (0.0-0.0); RBC 3.27 Mil/uL (4.40-5.90); WHITE BLOOD COUNT 4.9 K/uL (4.8-10.8)
[2018-11-10 05:57] LABS: ALB/GLOB RATIO 0.5 (1.0-2.1); ALBUMIN 1.6 g/dL (3.5-5.0); ALT/SGPT 55 U/L (21-72); AST/SGOT 144 U/L (17-59); BLOOD UREA NITROGEN 8 mg/dl (9-20); CALCIUM 6.9 mg/dL (8.4-10.2); GFR NON-AFRICAN AMERICAN > 60
[2018-11-10 06:03] LABS: LIPASE 9381 U/L (23-300)
--- NOTE | 2018-11-10 08:58 | CP.PCM.PN ---
Subjective - Date & Time of Evaluation Date of Evaluation: 11/09/18 Time of Evaluation: 14:00 - Subjective Subjective: no overnight events Objective - Vital Signs/Intake and Output Vital Signs (last 24 hours): Temp Pulse Resp BP Pulse Ox 98.5 F 86 18 101/62 99 11/10/18 08:00 11/10/18 08:00 11/10/18 08:00 11/10/18 08:00 11/10/18 08:00 Intake and Output: 11/10/18 11/10/18 06:59 18:59 Intake Total 4100 Balance 4100 - Medications Medications: Current Medications Acetaminophen (Tylenol 325mg Tab) 650 mg PO PRN PRN PRN Reason: Fever >100.4 F Last Admin: 11/08/18 17:50 Dose: 650 mg Famotidine (Pepcid) 20 mg PO BID PRN PRN Reason: abdominal Furosemide (Lasix) 40 mg PO DAILY [facility] Last Admin: 11/09/18 13:39 Dose: 40 mg Hydromorphone HCl (Dilaudid) 0.5 mg IVP Q4 PRN PRN Reason: Pain, moderate (4-7) Lactated Ringer's (Lactated Ringer's) 1,000 mls @ 250 mls/hr IV .Q4H [facility] Last Admin: 11/10/18 04:19 Dose: 250 mls/hr Folic Acid 1 mg/ Sodium (Chloride) 100.2 mls @ 60 mls/hr IVPB DAILY [facility] Last Admin: 11/09/18 14:45 Dose: 60 mls/hr Piperacillin Sod/Tazobactam (Sod 3.375 gm/ Sodium Chloride) 100 mls @ 100 mls/hr IVPB Q12 [facility]; Protocol Last Admin: 11/09/18 21:39 Dose: 100 mls/hr Lorazepam (Ativan) 1 mg IVP PRN PRN PRN Reason: Agitation Morphine Sulfate (Morphine) 2 mg IVP Q6 PRN PRN Reason: Pain, moderate (4-7) Nitrofurantoin Macrocrystals (Macrobid) 100 mg PO Q12 [facility]; Protocol Last Admin: 11/09/18 21:39 Dose: 100 mg Ondansetron HCl (Zofran Inj) 4 mg IVP Q6 PRN PRN Reason: Nausea/Vomiting Spironolactone (Aldactone) 100 mg PO DAILY [facility] Last Admin: 11/09/18 10:43 Dose: 100 mg Sucralfate (Carafate Oral Susp) 1 gm PO BID [facility] Last Admin: 11/09/18 17:21 Dose: 1 gm - Labs Labs: 11/10/18 04:40 11/10/18 04:40 PT 14.9 Seconds (9.8-13.1) H 11/07/18 21:54 INR 1.3 11/07/18 21:54 APTT 33.4 Seconds (25.6-37.1) 11/07/18 21:54 - Neck Exam Neck Exam: Normal Inspection - Respiratory Exam Respiratory Exam: Clear to Ausculation Bilateral - Cardiovascular Exam Cardiovascular Exam: REGULAR RHYTHM - GI/Abdominal Exam GI & Abdominal Exam: Soft, Normal Bowel Sounds Assessment and Plan - Assessment and Plan (Free Text) Assessment: 43 yo male with alcoholic pancreatitis doing well tolerating diet dc planning
[2018-11-10] MEDS ORDERED: Lactated Ringer's 1,000 ML IV SCH (09:06)
--- NOTE | 2018-11-10 09:28 | CP.PCM.PN ---
Subjective - Date & Time of Evaluation Date of Evaluation: 11/10/18 Time of Evaluation: 09:28 - Subjective Subjective: no overnight events Objective - Vital Signs/Intake and Output Vital Signs (last 24 hours): Temp Pulse Resp BP Pulse Ox 98.5 F 86 18 101/62 99 11/10/18 08:00 11/10/18 08:00 11/10/18 08:00 11/10/18 08:00 11/10/18 08:00 Intake and Output: 11/10/18 11/10/18 06:59 18:59 Intake Total 4100 Balance 4100 - Medications Medications: Current Medications Acetaminophen (Tylenol 325mg Tab) 650 mg PO PRN PRN PRN Reason: Fever >100.4 F Last Admin: 11/08/18 17:50 Dose: 650 mg Famotidine (Pepcid) 20 mg PO BID PRN PRN Reason: abdominal Furosemide (Lasix) 40 mg PO DAILY [facility] Last Admin: 11/09/18 13:39 Dose: 40 mg Hydromorphone HCl (Dilaudid) 0.5 mg IVP Q4 PRN PRN Reason: Pain, moderate (4-7) Folic Acid 1 mg/ Sodium (Chloride) 100.2 mls @ 60 mls/hr IVPB DAILY [facility] Last Admin: 11/09/18 14:45 Dose: 60 mls/hr Piperacillin Sod/Tazobactam (Sod 3.375 gm/ Sodium Chloride) 100 mls @ 100 mls/hr IVPB Q12 [facility]; Protocol Last Admin: 11/09/18 21:39 Dose: 100 mls/hr Lactated Ringer's (Lactated Ringer's) 1,000 mls @ 125 mls/hr IV .Q8H [facility] Lorazepam (Ativan) 1 mg IVP PRN PRN PRN Reason: Agitation Morphine Sulfate (Morphine) 2 mg IVP Q6 PRN PRN Reason: Pain, moderate (4-7) Nitrofurantoin Macrocrystals (Macrobid) 100 mg PO Q12 [facility]; Protocol Last Admin: 11/09/18 21:39 Dose: 100 mg Ondansetron HCl (Zofran Inj) 4 mg IVP Q6 PRN PRN Reason: Nausea/Vomiting Spironolactone (Aldactone) 100 mg PO DAILY [facility] Last Admin: 11/09/18 10:43 Dose: 100 mg Sucralfate (Carafate Oral Susp) 1 gm PO BID [facility] Last Admin: 11/09/18 17:21 Dose: 1 gm - Labs Labs: 11/10/18 04:40 11/10/18 04:40 PT 14.9 Seconds (9.8-13.1) H 11/07/18 21:54 INR 1.3 11/07/18 21:54 APTT 33.4 Seconds (25.6-37.1) 11/07/18 21:54 - Head Exam Head Exam: NORMOCEPHALIC - Neck Exam Neck Exam: Normal Inspection - Respiratory Exam Respiratory Exam: Clear to Ausculation Bilateral, NORMAL BREATHING PATTERN - Cardiovascular Exam Cardiovascular Exam: REGULAR RHYTHM - GI/Abdominal Exam GI & Abdominal Exam: Soft, Normal Bowel Sounds Assessment and Plan - Assessment and Plan (Free Text) Assessment: 43 yo male with etoh pancreatitis dc fluids dc home
[2018-11-10] MEDS: Sucralfate 1 gm/10 ml Oral Susp UD PO SCH (10:10)
[2018-11-10] MEDS: Piperacillin/Tazobact 3.375 GM in Sodium Chloride 0.9% 100 ML IVPB SCH (11:06)
[2018-11-10 12:23] VITALS: BP 103/63; PULSE 75; RESP 20; TEMP 98.2; O2SAT 100
== END 2018-11-10 13:28 | disposition home or self-care (01) | DRG 584 ==
LOC: H.ER 19:04 → H.ERHOLD 11-08 00:29 → H.ICU/CCU 11-08 04:57 → H.TEL 11-08 17:07
PROVIDERS: ADMIT Internal Medicine; ATTEND Internal Medicine
DX: A41.9 Sepsis, unspecified organism (principal); K85.20 Alcohol induced acute pancreatitis without necrosis or infection; K74.69 Other cirrhosis of liver; R18.8 Other ascites; B18.2 Chronic viral hepatitis C; K62.5 Hemorrhage of anus and rectum; F10.239 Alcohol dependence with withdrawal, unspecified; K76.6 Portal hypertension; R65.20 Severe sepsis without septic shock; J45.909 Unspecified asthma, uncomplicated; F17.210 Nicotine dependence, cigarettes, uncomplicated